=== PATIENT | male | born 1965 | race American Indian/Alaskan Native ===

== ENCOUNTER 2017-02-08 17:41 | Emergency (ER) | payer MEDICAID ==
[2017-02-08 17:41] VITALS: BMI 39.1
[2017-02-08 18:01] VITALS: BP 135/84; PULSE 90; RESP 18; TEMP 98.1; O2SAT 98
== END 2017-02-08 18:30 | disposition left against medical advice (07) ==
LOC: ED 17:41
DX: Z02.89 Encounter for other administrative examinations (principal); F41.9 Anxiety disorder, unspecified

== ENCOUNTER 2018-09-07 01:53 | Inpatient (IN) | payer MEDICAID ==
[2018-09-07] MEDS ORDERED: Vancomycin 1gm in NS 250ml 1 GM/250 ML BAG IVPB STA (02:26)
[2018-09-07] MEDS ORDERED: Piperacillin/Tazobact 3.375 gm 100 ML IVPB STA (02:26)
[2018-09-07] MEDS ORDERED: Sodium Chloride 0.9% 500 ML IV STA (02:27)
--- NOTE | 2018-09-07 02:28 | ED PDOC ---
Arrival/HPI - General Time Seen by Provider: 09/07/18 01:54 Historian: Patient - History of Present Illness Narrative History of Present Illness (Text): 09/07/18 02:24 53 year old male, whose past medical history includes Heroin abuse, hypertension, hyperlipidemia, diabetes, seizure disorder and Hepatitis C, presents to the emergency department complaining of chronic leg pain and pain to left upper arm, for over a month. Patient states he has an open wound on his leg, and it won't close. Patient also informs of pain to his upper left arm. Patient admits to heroin use, and has track sousa to his left arm. Patient denies any known trauma. Patient denies any fevers, chills, headache, dizziness, chest pain, shortness of breath, cough, abdominal pain, nausea, vomiting, diarrhea, back pain, neck pain, urinary/bowel changes, or any other complaint. Time/Duration: > month Symptom Onset: Sudden Symptom Course: Unchanged Activities at Onset: Light Past Medical History - Provider Review Nursing Documentation Reviewed: Yes - Infectious Disease Hx of Infectious Diseases: None - Cardiac Hx Cardiac Disorders: Yes Hx Hypertension: Yes - Pulmonary Hx Respiratory Disorders: No - Neurological Hx Neurological Disorder: Yes Hx Seizures: Yes (Tegretol 200 low dose) - Renal Hx Renal Disorder: Yes - Endocrine/Metabolic Hx Endocrine Disorders: Yes Hx Diabetes Mellitus Type 1: Yes - Hematological/Oncological Hx Hepatitis C: Yes - Musculoskeletal/Rheumatological Hx Back Pain: Yes Hx Degenerative Joint Disease: Yes - Genitourinary/Gynecological Hx Sexually Transmitted Diseases: No - Psychiatric Hx Bipolar Disorder: Yes Hx Depression: Yes Hx Substance Use: Yes - Surgical History Hx Orthopedic Surgery: Yes - Anesthesia Hx Anesthesia Reactions: No Family/Social History - Physician Review Nursing Documentation Reviewed: Yes Family/Social History: No Known Family HX Smoking Status: Heavy Smoker > 10 Cigarettes Daily Hx Alcohol Use: Yes Frequency of alcohol use: Daily Hx Substance Use: Yes Substance used: coccaine, heroin (last used 09/07/18) Allergies/Home Meds Allergies/Adverse Reactions: Allergies coconut Allergy (Verified 09/07/18 02:09) RASH tomato Allergy (Verified 09/07/18 02:09) SHORTNESS OF BREATH Home Medications: Home Meds Medication Instructions Recorded Confirmed Atorvastatin [Lipitor] 20 mg PO DAILY 09/13/15 05/11/16 Gabapentin 800 mg PO QID 12/05/15 05/11/16 Lisinopril 5 mg PO DAILY 12/05/15 05/11/16 Metformin HCl 500 mg PO BID 12/05/15 05/11/16 Metoprolol Tartrate 25 mg PO DAILY 12/05/15 05/11/16 Glipizide 0 mg PO DAILY 04/28/16 05/11/16 Promethazine DM [Phenergan DM 5 ml PO QID 05/11/16 05/16/16 Syrup] Ranitidine HCl [Sunmark Acid 150 mg PO BID 05/11/16 05/11/16 Live Study Manager] Review of Systems - Physician Review All systems were reviewed & negative as marked: Yes - Review of Systems Constitutional: absent: Fevers, Night Sweats Respiratory: absent: SOB, Cough Cardiovascular: absent: Chest Pain Genitourinary Male: absent: Urinary Output Changes Musculoskeletal: absent: Back Pain, Neck Pain Neurological: absent: Headache, Dizziness Physical Exam - Systems Exam Head: Present: Atraumatic, Normocephalic Pupils: Present: PERRL Extroacular Muscles: Present: EOMI Conjunctiva: Present: Normal Mouth: Present: Moist Mucous Membranes Neck: Present: Normal Range of Motion Respiratory/Chest: Present: Clear to Auscultation, Good Air Exchange. No: Respiratory Distress, Accessory Muscle Use Cardiovascular: Present: Regular Rate and Rhythm, Normal S1, S2. No: Murmurs Abdomen: No: Tenderness, Distention, Peritoneal Signs Back: Present: Normal Inspection Upper Extremity: Present: Swelling (Swelling to left upper shoulder). No: Cyanosis, Edema Lower Extremity: Present: Other (2 cm ulcer to lower left leg with purulent discharge). No: Normal Inspection, Edema Neurological: Present: Speech Normal Skin: Present: Warm, Dry, Normal Color. No: Rashes Psychiatric: Present: Alert, Oriented x 3, Normal Insight, Normal Concentration Medical Decision Making ED Course and Treatment: 09/07/18 02:32 Impression: 53 year old male presents with left leg and shoulder pain suspect abscess Plan: -- Labs -- Vancomycin -- Zosyn -- X-ray left shoulder -- Reassess and disposition Prior Visits: Notes and results from previous visits were reviewed. Progress Notes: 09/07/18 06:21 CT scan of the left upper extremity with contrast. Indication: Upper arm swelling. History of IV drug abuse. Technique: Axial CT scan images with intravenous contrast. Reformatted coronal and sagittal images. Findings: 3.5 x 2.6 cm intra subdeltoid abscess formation with a surrounding myositis. Overlying cellulitis. No CT evidence of osteomyelitis. Enlarged left axillary lymph nodes the largest measuring 1.3 cm. There are changes of degenerative joint disease. Impression: 3.5 x 2.6 cm intra subdeltoid abscess formation with a surrounding myositis. Overlying cellulitis. No CT evidence of osteomyelitis. case discussed with medical van driver, dr liz and medical surgical tech. accepted to medicine. 09/07/18 06:23 - Scribe Statement The provider has reviewed the documentation as recorded by the Argenis Anderson Provider Scribe Attestation: All medical record entries made by the Argenis were at my direction and personally dictated by me. I have reviewed the chart and agree that the record accurately reflects my personal performance of the history, physical exam, medical decision making, and the department course for this patient. I have also personally directed, reviewed, and agree with the discharge instructions and disposition. Disposition/Present on Arrival - Present on Arrival Any Indicators Present on Arrival: No History of DVT/PE: No History of Uncontrolled Diabetes: No Urinary Catheter: No History of Decub. Ulcer: No History Surgical Site Infection Following: None - Disposition Have Diagnosis and Disposition been Completed?: Yes Diagnosis: Abscess of deltoid region Disposition: HOSPITALIZED Disposition Time: 02:45 Patient Problems: Current Active Problems Problem Status Onset Abscess of deltoid region Acute Condition: STABLE
[2018-09-07 03:12] LABS: PARTIAL THROMBOPLASTIN TIME 29.2 Seconds (25.1-36.5); PROTHROMBIN TIME 11.4 SECONDS (9.4-12.5)
[2018-09-07 03:20] LABS: ALBUMIN 3.9 g/dL (3.0-4.8); ALT/SGPT 21 U/L (7-56); AST/SGOT 21 U/L (17-59); BLOOD UREA NITROGEN 15 mg/dL (7-21); CALCIUM 9.1 mg/dL (8.4-10.5); GFR NON-AFRICAN AMERICAN > 60
[2018-09-07 03:27] LABS: BASO # 0.02 K/mm3 (0.0-2.0); BASO % 0.2 % (0.0-3.0); EOS # 0.2 (0.0-0.7); EOS % 2.8 % (1.5-5.0); GRAN # 5.48 (1.4-6.5); HEMOGLOBIN 12.7 g/dL (14.0-18.0); LYMPH # 1.9 (1.2-3.4); LYMPH % 23.6 % (22.0-35.0); MEAN CELL VOLUME 85.8 fl (80.0-105.0); MEAN CORPUSCULAR HEMOGLOBIN 27.8 pg (25.0-35.0); MEAN CORPUSCULAR HGB CONC 32.4 g/dl (31.0-37.0); MEAN PLATELET VOLUME 10.7 fl (7.0-11.0); MONO # 0.5 (0.1-0.6); MONO % 6.4 % (1.0-6.0); RBC 4.57 10^6/uL (3.5-6.1); RED CELL DISTRIBUTION WIDTH 13.2 % (11.5-14.5); WHITE BLOOD COUNT 8.2 10^3/uL (4.5-11.0)
[2018-09-07] MEDS ORDERED: Iohexol 350 MG/100 ML VIAL ONE (03:33)
[2018-09-07] MEDS ORDERED: Vitamins A & D Oint UD Foilpak TOP PRN (07:31)
[2018-09-07] MEDS ORDERED: Dextrose 50% SYRINGE Inj (50 ml) IV PRN (07:32)
[2018-09-07] MEDS ORDERED: Sodium Chloride 0.9% 1,000 ML IV SCH (07:45)
[2018-09-07] MEDS: Vancomycin 1.5 GM in Sodium Chloride 0.9% 500 ML IVPB SCH ×2 (07:47→19:41)
[2018-09-07 07:51] LABS: URINE BILIRUBIN NEGATIVE (NEGATIVE); URINE BLOOD NEGATIVE (NEGATIVE); URINE GLUCOSE (UA) NEGATIVE (NEGATIVE); URINE LEUKOCYTE ESTERASE NEGATIVE Leu/uL (NEGATIVE); URINE PROTEIN NEGATIVE mg/dL (<30 mg/dL); URINE UROBILINOGEN 0.2 E.U./dL (<1 E.U./dL)
[2018-09-07 07:52] LABS: URINE APPEARANCE CLEAR (CLEAR); URINE COLOR YELLOW (YELLOW)
--- NOTE | 2018-09-07 08:08 | CP.PCM.CON ---
<Jenny Lopez - Last Filed: 09/07/18 17:19> History of Present Illness - History of Present Illness History of Present Illness: ID Consult Note - Dr. Wilson CC: Left Upper Arm pain and swelling x 2 weeks HPI: 53 M with a PMHx of HTN, Seizures on tegretol, DM1, Hep C, IVDU, and Bipolar Disorder presents to the [facility] ED with complaints of chronic leg pain and left upper extremity pain and swelling for 2 weeks. Patient has a nonhealing ulcer on his leg for over a month, left leg abscess was previously present and previously was healed. He admits IVDU and admits using needles on left arm. He rated his pain at a 8/10 at its worst with a 5/10 constant pain, achy in quality and exacerbated by movement. He is able to move his extremities and denied any paresthesias. Patient denies any known trauma. Patient denies any fevers, chills, headache, dizziness, chest pain, shortness of breath, cough, abdominal pain, nausea, vomiting, diarrhea, back pain, neck pain, urinary/bowel changes, or any other complaint. PMHx: HTN, Seizures on tegretol, DM1, Hep C, and Bipolar Disorder PSHx: Ortho Surgery SHx: + tobacco: 1/2 ppd, + Etoh - daily, Cocaine & Heroin Abuse last used today FamHx; Noncontributory Meds: MAR Reviewed Allergies: Coconut, tomato Review of Systems - EENT Ears: Ear Discharge Past Patient History - Infectious Disease Hx of Infectious Diseases: None - Past Social History Smoking Status: Heavy Smoker > 10 Cigarettes Daily - CARDIAC Hx Cardiac Disorders: Yes Hx Hypertension: Yes - PULMONARY Hx Respiratory Disorders: No - NEUROLOGICAL Hx Neurological Disorder: Yes Hx Seizures: Yes (Tegretol 200 low dose) - RENAL Hx Chronic Kidney Disease: Yes - ENDOCRINE/METABOLIC Hx Endocrine Disorders: Yes Hx Diabetes Mellitus Type 1: Yes - HEMATOLOGICAL/ONCOLOGICAL Hx Hepatitis C: Yes - MUSCULOSKELETAL/RHEUMATOLOGICAL Hx Back Pain: Yes Hx Degenerative Joint Disease: Yes - GENITOURINARY/GYNECOLOGICAL Hx Sexually Transmitted Disorders: No - PSYCHIATRIC Hx Bipolar Disorder: Yes Hx Depression: Yes Hx Substance Use: Yes - SURGICAL HISTORY Hx Orthopedic Surgery: Yes - ANESTHESIA Hx Anesthesia Reactions: No Meds Allergies/Adverse Reactions: Allergies Allergy/AdvReac Type Severity Reaction Status Date / Time coconut Allergy RASH Verified 09/07/18 02:09 tomato Allergy SHORTNESS Verified 09/07/18 02:09 OF BREATH Results - Vital Signs Recent Vital Signs: Last Vital Signs Temp 98.3 F 09/07/18 02:45 Pulse 85 09/07/18 06:00 Resp 18 09/07/18 06:00 BP 110/62 09/07/18 06:00 Pulse Ox 96 09/07/18 06:00 - Labs Result Diagrams: 09/07/18 02:45 09/07/18 02:45 Labs: Laboratory Results - last 24 hr 09/07/18 09/07/18 09/07/18 02:45 02:45 02:45 WBC 8.2 RBC 4.57 Hgb 12.7 L Hct 39.2 L MCV 85.8 MCH 27.8 MCHC 32.4 RDW 13.2 Plt Count 190 MPV 10.7 Gran % 67.0 Lymph % (Auto) 23.6 [place] % (Auto) 6.4 H Eos % (Auto) 2.8 Baso % (Auto) 0.2 Gran # 5.48 Lymph # (Auto) 1.9 [place] # (Auto) 0.5 Eos # (Auto) 0.2 Baso # (Auto) 0.02 PT 11.4 INR 1.00 APTT 29.2 Sodium 134 Potassium 3.8 Chloride 96 L Carbon Dioxide 32 Anion Gap 9 L BUN 15 Creatinine 0.8 Est GFR ( Amer) > 60 Est GFR (Non-Af Amer) > 60 POC Glucose (mg/dL) Random Glucose 362 H* D Calcium 9.1 Total Bilirubin 0.2 AST 21 ALT 21 Alkaline Phosphatase 115 Total Creatine Kinase 77 Total Protein 7.7 Albumin 3.9 Globulin 3.8 Albumin/Globulin Ratio 1.0 L 09/07/18 09/07/18 03:01 06:34 WBC RBC Hgb Hct MCV MCH MCHC RDW Plt Count MPV Gran % Lymph % (Auto) [place] % (Auto) Eos % (Auto) Baso % (Auto) Gran # Lymph # (Auto) [place] # (Auto) Eos # (Auto) Baso # (Auto) PT INR APTT Sodium Potassium Chloride Carbon Dioxide Anion Gap BUN Creatinine Est GFR ( Amer) Est GFR (Non-Af Amer) POC Glucose (mg/dL) 337 H 272 H Random Glucose Calcium Total Bilirubin AST ALT Alkaline Phosphatase Total Creatine Kinase Total Protein Albumin Globulin Albumin/Globulin Ratio Assessment & Plan - Assessment and Plan (Free Text) Assessment: 3 M with a PMHx of HTN, Seizures on tegretol, DM1, Hep C, IVDU, and Bipolar Disorder presents to the [facility] ED with complaints of chronic leg pain and left upper extremity pain and swelling for 2 weeks. Left deltoid Abscess 2/2 IVDU Cellulitis LLE Chronic Ulcer DM1 Seizure Disorder HepC Bipolar Disorder without SIRS and hemodynamically stable. CT reviewed, demonstrated 3.5x2.6cm intra subdeltoid abscess, s/p I&D and wound packing in the ED with betadine and NS flushes - drainage of approx 10cc of the purulent abscess by surgery team, fu wound cx follow up blood culture, wound culture, HIV, procalcitonin, CRP currently on zosyn and vanc, will dc zosyn now that abscess is drained Echo pending will continue to follow <Petros Wilson - Last Filed: 09/07/18 17:56> Meds - Medications Medications: Current Medications Acetaminophen (Tylenol 325mg Tab) 650 mg PO Q6H PRN PRN Reason: Fever >100.4 F Carbamazepine (Tegretol) 200 mg PO DAILY BRIANDA; Protocol Dextrose (Dextrose 50% Inj) 0 ml IV STAT PRN; Protocol PRN Reason: Hypoglycemia Protocol Enoxaparin Sodium (Lovenox) 40 mg SC DAILY BRIANDA; Protocol Dextrose (Dextrose 5% In Water 1000 Ml) 1,000 mls @ 0 mls/hr IV .Q0M PRN; Protocol PRN Reason: Hypoglycemia Protocol Vancomycin HCl 1.5 gm/ Sodium (Chloride) 500 mls @ 167 mls/hr IVPB Q12H BRIANDA; Protocol Last Admin: 09/07/18 07:47 Dose: Not Given Insulin Detemir (Levemir) 12 unit SC HS BRIANDA Insulin Human Regular (Humulin R Med) 0 units SC ACHS BRIANDA; Protocol Morphine Sulfate (Morphine) 2 mg IVP Q4H PRN PRN Reason: Pain, severe (8-10) Nicotine (Nicoderm Cq) 1 patch TD DAILY BRIANDA Last Admin: 09/07/18 12:01 Dose: 1 patch Ondansetron HCl (Zofran Inj) 4 mg IVP Q4H PRN PRN Reason: Nausea/Vomiting Last Admin: 09/07/18 09:15 Dose: 4 mg Pantoprazole Sodium (Protonix Ec Tab) 40 mg PO 0600 BRIANDA Vitamin A (Vitamin A & D Oint Ud Foilpak) 1 ea TOP Q2 PRN PRN Reason: Dry mouth Results - Vital Signs Recent Vital Signs: Last Vital Signs Temp 98.8 F 09/07/18 14:00 Pulse 86 09/07/18 14:00 Resp 18 09/07/18 10:30 BP 125/82 09/07/18 14:00 Pulse Ox 100 09/07/18 14:00 - Labs Result Diagrams: 09/07/18 02:45 09/07/18 02:45 Labs: Laboratory Results - last 24 hr 09/07/18 09/07/18 09/07/18 02:45 02:45 02:45 WBC 8.2 RBC 4.57 Hgb 12.7 L Hct 39.2 L MCV 85.8 MCH 27.8 MCHC 32.4 RDW 13.2 Plt Count 190 MPV 10.7 Gran % 67.0 Lymph % (Auto) 23.6 [place] % (Auto) 6.4 H Eos % (Auto) 2.8 Baso % (Auto) 0.2 Gran # 5.48 Lymph # (Auto) 1.9 [place] # (Auto) 0.5 Eos # (Auto) 0.2 Baso # (Auto) 0.02 ESR PT 11.4 INR 1.00 APTT 29.2 Sodium 134 Potassium 3.8 Chloride 96 L Carbon Dioxide 32 Anion Gap 9 L BUN 15 Creatinine 0.8 Est GFR ( Amer) > 60 Est GFR (Non-Af Amer) > 60 POC Glucose (mg/dL) Random Glucose 362 H* D Hemoglobin A1c Calcium 9.1 Total Bilirubin 0.2 AST 21 ALT 21 Alkaline Phosphatase 115 Total Creatine Kinase 77 C-React Prot High Sens Total Protein 7.7 Albumin 3.9 Globulin 3.8 Albumin/Globulin Ratio 1.0 L Procalcitonin Urine Color Urine Appearance Urine pH Ur Specific [place] Urine Protein Urine Glucose (UA) Urine Ketones Urine Blood Urine Nitrate Urine Bilirubin Urine Urobilinogen Ur Leukocyte Esterase Urine Opiates Screen Urine Methadone Screen Ur Barbiturates Screen Carbamazepine Ur Phencyclidine Scrn Ur Amphetamines Screen U Benzodiazepines Scrn U Oth Cocaine Metabols U Cannabinoids Screen Alcohol, Quantitative Hepatitis A IgM Ab Hep Bs Antigen Hep B Core IgM Ab Hepatitis C Antibody 09/07/18 09/07/18 09/07/18 02:45 02:45 02:45 WBC RBC Hgb Hct MCV MCH MCHC RDW Plt Count MPV Gran % Lymph % (Auto) [place] % (Auto) Eos % (Auto) Baso % (Auto) Gran # Lymph # (Auto) [place] # (Auto) Eos # (Auto) Baso # (Auto) ESR PT INR APTT Sodium Potassium Chloride Carbon Dioxide Anion Gap BUN Creatinine Est GFR ( Amer) Est GFR (Non-Af Amer) POC Glucose (mg/dL) Random Glucose Hemoglobin A1c 14.4 H Calcium Total Bilirubin AST ALT Alkaline Phosphatase Total Creatine Kinase C-React Prot High Sens > 15.00 H Total Protein Albumin Globulin Albumin/Globulin Ratio Procalcitonin 1.26 H Urine Color Urine Appearance Urine pH Ur Specific [place] Urine Protein Urine Glucose (UA) Urine Ketones Urine Blood Urine Nitrate Urine Bilirubin Urine Urobilinogen Ur Leukocyte Esterase Urine Opiates Screen Urine Methadone Screen Ur Barbiturates Screen Carbamazepine Ur Phencyclidine Scrn Ur Amphetamines Screen U Benzodiazepines Scrn U Oth Cocaine Metabols U Cannabinoids Screen Alcohol, Quantitative < 10 Hepatitis A IgM Ab Hep Bs Antigen Hep B Core IgM Ab Hepatitis C Antibody 09/07/18 09/07/18 09/07/18 03:01 06:34 07:26 WBC RBC Hgb Hct MCV MCH MCHC RDW Plt Count MPV Gran % Lymph % (Auto) [place] % (Auto) Eos % (Auto) Baso % (Auto) Gran # Lymph # (Auto) [place] # (Auto) Eos # (Auto) Baso # (Auto) ESR PT INR APTT Sodium Potassium Chloride Carbon Dioxide Anion Gap BUN Creatinine Est GFR ( Amer) Est GFR (Non-Af Amer) POC Glucose (mg/dL) 337 H 272 H Random Glucose Hemoglobin A1c Calcium Total Bilirubin AST ALT Alkaline Phosphatase Total Creatine Kinase C-React Prot High Sens Total Protein Albumin Globulin Albumin/Globulin Ratio Procalcitonin Urine Color Urine Appearance Urine pH Ur Specific [place] Urine Protein Urine Glucose (UA) Urine Ketones Urine Blood Urine Nitrate Urine Bilirubin Urine Urobilinogen Ur Leukocyte Esterase Urine Opiates Screen Negative Urine Methadone Screen Negative Ur Barbiturates Screen Negative Carbamazepine Ur Phencyclidine Scrn Negative Ur Amphetamines Screen Negative U Benzodiazepines Scrn Negative U Oth Cocaine Metabols Negative U Cannabinoids Screen Negative Alcohol, Quantitative Hepatitis A IgM Ab Hep Bs Antigen Hep B Core IgM Ab Hepatitis C Antibody 09/07/18 09/07/18 09/07/18 07:40 07:40 08:00 WBC RBC Hgb Hct MCV MCH MCHC RDW Plt Count MPV Gran % Lymph % (Auto) [place] % (Auto) Eos % (Auto) Baso % (Auto) Gran # Lymph # (Auto) [place] # (Auto) Eos # (Auto) Baso # (Auto) ESR 31 H PT INR APTT Sodium Potassium Chloride Carbon Dioxide Anion Gap BUN Creatinine Est GFR ( Amer) Est GFR (Non-Af Amer) POC Glucose (mg/dL) Random Glucose Hemoglobin A1c Calcium Total Bilirubin AST ALT Alkaline Phosphatase Total Creatine Kinase C-React Prot High Sens Total Protein Albumin Globulin Albumin/Globulin Ratio Procalcitonin Urine Color Yellow Urine Appearance Clear Urine pH 7.0 Ur Specific [place] 1.015 Urine Protein Negative Urine Glucose (UA) Negative Urine Ketones Negative Urine Blood Negative Urine Nitrate Negative Urine Bilirubin Negative Urine Urobilinogen 0.2 Ur Leukocyte Esterase Negative Urine Opiates Screen Urine Methadone Screen Ur Barbiturates Screen Carbamazepine Ur Phencyclidine Scrn Ur Amphetamines Screen U Benzodiazepines Scrn U Oth Cocaine Metabols U Cannabinoids Screen Alcohol, Quantitative Hepatitis A IgM Ab Negative Hep Bs Antigen Negative Hep B Core IgM Ab Negative Hepatitis C Antibody Reactive 09/07/18 09/07/18 09/07/18 08:31 11:06 16:21 WBC RBC Hgb Hct MCV MCH MCHC RDW Plt Count MPV Gran % Lymph % (Auto) [place] % (Auto) Eos % (Auto) Baso % (Auto) Gran # Lymph # (Auto) [place] # (Auto) Eos # (Auto) Baso # (Auto) ESR PT INR APTT Sodium Potassium Chloride Carbon Dioxide Anion Gap BUN Creatinine Est GFR ( Amer) Est GFR (Non-Af Amer) POC Glucose (mg/dL) 265 H 307 H Random Glucose Hemoglobin A1c Calcium Total Bilirubin AST ALT Alkaline Phosphatase Total Creatine Kinase C-React Prot High Sens Total Protein Albumin Globulin Albumin/Globulin Ratio Procalcitonin Urine Color Urine Appearance Urine pH Ur Specific [place] Urine Protein Urine Glucose (UA) Urine Ketones Urine Blood Urine Nitrate Urine Bilirubin Urine Urobilinogen Ur Leukocyte Esterase Urine Opiates Screen Urine Methadone Screen Ur Barbiturates Screen Carbamazepine < 3 L Ur Phencyclidine Scrn Ur Amphetamines Screen U Benzodiazepines Scrn U Oth Cocaine Metabols U Cannabinoids Screen Alcohol, Quantitative Hepatitis A IgM Ab Hep Bs Antigen Hep B Core IgM Ab Hepatitis C Antibody Assessment & Plan - Assessment and Plan (Free Text) Assessment: Infectious diseases Attending Physician Attestation Patient seen and examined, discussed with biomedical specialist. I have reviewed the patient's history of present illness, past medical, social, personal and family histories, pertinent physical exam findings, course so far in this hospital admission, pertinent laboratory and imaging results. I agree with the above findings, assessment and plan. In addition, will continue Vancomycin for this patient with left deltoid abscess associated with IVDU, S/P drainage at bedside. Follow up blood and wound cx. Will check HIV status of the patient.
[2018-09-07] MEDS ORDERED: Lidocaine 1% 5ml Abboject ONE (08:31)
--- NOTE | 2018-09-07 08:42 | CP.PCM.CON ---
History of Present Illness - History of Present Illness History of Present Illness: General Surgery Consult Note for Dr. Fitch HPI: 53 y/o male with PMHx DM, IVDA, HTN, HLD, sz, untreated hep c, and bipolar disorder presented to the ER with an unhealed left leg abscess x 1 month and left deltoid abscess x 2 weeks. Surgery consulted for treatment of the deltoid abscess. Patient history limited due to lethargic condition and therefore inability to answer questions. Per ED physician, patient was more awake upon arrival to the ED earlier this morning. Per patient, left leg abscess was pre viously present and previously healed with abx. The left arm abscess was for 2 weeks. Per earlier notes, patient uses IV drugs and admits to heroin injection done last 24 hours. ROS: unable to be obtained a full ROS due to patient condition PMD: none PMHx: stated above - patient admits to DM, HTN and untreated Hep C, but earlier notes indicate IVDA, HLD, SZ, and bipolar PSHx: left lower leg ortho surgery SocHx: 1/2 ppd tobacco since 8 y/o, denies EtOH (however earlier notes state EtOH), heroin and cocaine use. FM: unable to obtain due to patient condition Meds: Patient states he ran out of his medications and took metformin previously. Currently not on medications All: coconut and tomato Review of Systems - Review of Systems Systems not reviewed;Unavailable: Altered Mental Status Past Patient History - Infectious Disease Hx of Infectious Diseases: None - Past Social History Smoking Status: Heavy Smoker > 10 Cigarettes Daily - CARDIAC Hx Cardiac Disorders: Yes Hx Hypertension: Yes - PULMONARY Hx Respiratory Disorders: No - NEUROLOGICAL Hx Neurological Disorder: Yes Hx Seizures: Yes (Tegretol 200 low dose) - RENAL Hx Chronic Kidney Disease: Yes - ENDOCRINE/METABOLIC Hx Endocrine Disorders: Yes Hx Diabetes Mellitus Type 1: Yes - HEMATOLOGICAL/ONCOLOGICAL Hx Hepatitis C: Yes - MUSCULOSKELETAL/RHEUMATOLOGICAL Hx Back Pain: Yes Hx Degenerative Joint Disease: Yes - GENITOURINARY/GYNECOLOGICAL Hx Sexually Transmitted Disorders: No - PSYCHIATRIC Hx Bipolar Disorder: Yes Hx Depression: Yes Hx Substance Use: Yes - SURGICAL HISTORY Hx Orthopedic Surgery: Yes - ANESTHESIA Hx Anesthesia Reactions: No Meds Allergies/Adverse Reactions: Allergies Allergy/AdvReac Type Severity Reaction Status Date / Time coconut Allergy RASH Verified 09/07/18 02:09 tomato Allergy SHORTNESS Verified 09/07/18 02:09 OF BREATH - Medications Medications: Current Medications Acetaminophen (Tylenol 325mg Tab) 650 mg PO Q6H PRN PRN Reason: Fever >100.4 F Dextrose (Dextrose 50% Inj) 0 ml IV STAT PRN; Protocol PRN Reason: Hypoglycemia Protocol Dextrose (Dextrose 5% In Water 1000 Ml) 1,000 mls @ 0 mls/hr IV .Q0M PRN; Protocol PRN Reason: Hypoglycemia Protocol Sodium Chloride (Sodium Chloride 0.9%) 1,000 mls @ 100 mls/hr IV .Q10H BRIANDA Last Admin: 09/07/18 07:48 Dose: 100 mls/hr Vancomycin HCl 1.5 gm/ Sodium (Chloride) 500 mls @ 167 mls/hr IVPB Q12H BRIANDA; Protocol Last Admin: 09/07/18 07:47 Dose: Not Given Piperacillin Sod/Tazobactam Sod (Zosyn 3.375 In Ns 100ml) 100 mls @ 200 mls/hr IVPB Q6 BRIANDA; Protocol Insulin Human Regular (Humulin R Med) 0 units SC Q6 BRIANDA; Protocol Nicotine (Nicoderm Cq) 1 patch TD DAILY BRIANDA Ondansetron HCl (Zofran Inj) 4 mg IVP Q4H PRN PRN Reason: Nausea/Vomiting Pantoprazole Sodium (Protonix Ec Tab) 40 mg PO 0600 [facility] Vitamin A (Vitamin A & D Oint Ud Foilpak) 1 ea TOP Q2 PRN PRN Reason: Dry mouth Physical Exam - Constitutional Appears: Other Additional comments: Lethargic black male, able to be aroused with chest rub. "Leave me alone." - Head Exam Head Exam: ATRAUMATIC, NORMAL INSPECTION, NORMOCEPHALIC - ENT Exam ENT Exam: Mucous Membranes Moist - Neck Exam Neck exam: Positive for: Normal Inspection - Respiratory Exam Respiratory Exam: Clear to Auscultation Bilateral, NORMAL BREATHING PATTERN - Cardiovascular Exam Cardiovascular Exam: REGULAR RHYTHM - GI/Abdominal Exam GI & Abdominal Exam: Normal Bowel Sounds, Soft - Extremities Exam Additional comments: No peripheral edema, peripheral pulses strong. - Neurological Exam Additional comments: negative babinski reflex - Psychiatric Exam Additional comments: lethargic - Skin Additional comments: Left deltoid: 3x2 cm erythematous abscess, tender to palpation Left anterior tibialis: 2 cm ulcer w/ purulent discharge, well defined borders Results - Vital Signs Recent Vital Signs: Last Vital Signs Temp 98.3 F 09/07/18 08:03 Pulse 89 09/07/18 08:03 Resp 18 09/07/18 08:03 BP 106/67 09/07/18 08:03 Pulse Ox 99 09/07/18 08:03 - Labs Result Diagrams: 09/07/18 02:45 09/07/18 02:45 Labs: Laboratory Results - last 24 hr 09/07/18 09/07/18 09/07/18 02:45 02:45 02:45 WBC 8.2 RBC 4.57 Hgb 12.7 L Hct 39.2 L MCV 85.8 MCH 27.8 MCHC 32.4 RDW 13.2 Plt Count 190 MPV 10.7 Gran % 67.0 Lymph % (Auto) 23.6 Glades % (Auto) 6.4 H Eos % (Auto) 2.8 Baso % (Auto) 0.2 Gran # 5.48 Lymph # (Auto) 1.9 Glades # (Auto) 0.5 Eos # (Auto) 0.2 Baso # (Auto) 0.02 PT 11.4 INR 1.00 APTT 29.2 Sodium 134 Potassium 3.8 Chloride 96 L Carbon Dioxide 32 Anion Gap 9 L BUN 15 Creatinine 0.8 Est GFR ( Amer) > 60 Est GFR (Non-Af Amer) > 60 POC Glucose (mg/dL) Random Glucose 362 H* D Calcium 9.1 Total Bilirubin 0.2 AST 21 ALT 21 Alkaline Phosphatase 115 Total Creatine Kinase 77 Total Protein 7.7 Albumin 3.9 Globulin 3.8 Albumin/Globulin Ratio 1.0 L Urine Color Urine Appearance Urine pH Ur Specific Acra Urine Protein Urine Glucose (UA) Urine Ketones Urine Blood Urine Nitrate Urine Bilirubin Urine Urobilinogen Ur Leukocyte Esterase Alcohol, Quantitative 09/07/18 09/07/18 09/07/18 02:45 03:01 06:34 WBC RBC Hgb Hct MCV MCH MCHC RDW Plt Count MPV Gran % Lymph % (Auto) Glades % (Auto) Eos % (Auto) Baso % (Auto) Gran # Lymph # (Auto) Glades # (Auto) Eos # (Auto) Baso # (Auto) PT INR APTT Sodium Potassium Chloride Carbon Dioxide Anion Gap BUN Creatinine Est GFR ( Amer) Est GFR (Non-Af Amer) POC Glucose (mg/dL) 337 H 272 H Random Glucose Calcium Total Bilirubin AST ALT Alkaline Phosphatase Total Creatine Kinase Total Protein Albumin Globulin Albumin/Globulin Ratio Urine Color Urine Appearance Urine pH Ur Specific Acra Urine Protein Urine Glucose (UA) Urine Ketones Urine Blood Urine Nitrate Urine Bilirubin Urine Urobilinogen Ur Leukocyte Esterase Alcohol, Quantitative < 10 09/07/18 07:40 WBC RBC Hgb Hct MCV MCH MCHC RDW Plt Count MPV Gran % Lymph % (Auto) Glades % (Auto) Eos % (Auto) Baso % (Auto) Gran # Lymph # (Auto) Glades # (Auto) Eos # (Auto) Baso # (Auto) PT INR APTT Sodium Potassium Chloride Carbon Dioxide Anion Gap BUN Creatinine Est GFR ( Amer) Est GFR (Non-Af Amer) POC Glucose (mg/dL) Random Glucose Calcium Total Bilirubin AST ALT Alkaline Phosphatase Total Creatine Kinase Total Protein Albumin Globulin Albumin/Globulin Ratio Urine Color Yellow Urine Appearance Clear Urine pH 7.0 Ur Specific Acra 1.015 Urine Protein Negative Urine Glucose (UA) Negative Urine Ketones Negative Urine Blood Negative Urine Nitrate Negative Urine Bilirubin Negative Urine Urobilinogen 0.2 Ur Leukocyte Esterase Negative Alcohol, Quantitative Assessment & Plan - Assessment and Plan (Free Text) Assessment: 53 y/o male with multiple medical problems including PMHx of DM, HTN, untreated hep C presented to the ED with a left deltoid abscess x 2 weeks and left leg ulcer x 1 mo. left deltoid abscess -Patient currently without sepsis and hemodynamically stable. CT negative for cellulitis and x-ray left shoulder pending radiology read -s/p I&D and wound packing in the ED with betadine and NS flushes - drainage of approx 10cc of the purulent abscess -pending labs: blood culture, wound culture, HIV, procalcitonin, CRP -currently on zosyn and vanc -ID consulted, appreciate recs -will continue to follow for wound care left leg ulcer -recommend local wound care Katie Brewer DO PGY1
--- NOTE | 2018-09-07 08:50 | CT ---
Date of service: 09/07/2018 PROCEDURE: HISTORY: upper arm swelling h/o of ivda COMPARISON: TECHNIQUE: FINDINGS: 3.5 x 2.6 centimeter lateral deltoid abscess formation with surrounding myositis and overlying cellulitis. No evidence of osteomyelitis. Enlarged left axillary lymph nodes measuring 1.3 centimeters. Degenerative changes. IMPRESSION: Lateral deltoid abscess.
[2018-09-07] MEDS ORDERED: Morphine 2 mg/ml ISec IVP PRN (09:01)
--- NOTE | 2018-09-07 09:15 | PCM.PROC ---
- Incision & Drainage Of Abscess Anesthesia: Lidocaine 1%, With Epi Used During Procedure: Continuous Pulse Oximetry Prep Used: Betadine Procedure: Incised W/Scalpel Blade#: (11), Drained Pus (20), Irrigated Cavity W/Saline, Probed To Break Up Loculations, Packed W/Gauze, Cultures Obtained And Sent To Lab Incision and Drainage - Time Time Performed: 08:45 - Time Out Time Out: Side verified, Site verified, Patient ID confirmed, Sterile procedures obs. - Procedure Procedure-Incision & Drainage: of Left Deltoid - Consent obtained Consent obtained: Written - Indications Indications: Cutaneous abscess - Contraindications Contraindications: None - Location Location: Left, Shoulder abs.deep (intra) - Dimensions Dimensions Length cm: 7 Dimensions width cm: 8 - Anesthetic Technique Anesthetic Technique: Local - Anesthetic Anesthetic: Lidocaine 1% - Procedure Procedure: Usual prep and drape, cm incision, Overlying area fluctuance, # scalpel used (11), Explored for loculations, Irrigated, Packed with sterile gauze - Drained Drained: ml pus (25) - Post-procedure Post procedure: Neurovascular status norm - Complications Complications: None - Patient tolerated procedure Patient tolerated procedure: Well
--- NOTE | 2018-09-07 09:24 | RAD ---
Date of service: 09/07/2018 PROCEDURE: Radiographs of the Left Shoulder HISTORY: pain COMPARISON: No prior. FINDINGS: BONES: Cystic degenerative changes are seen in the bony glenoid. JOINTS: As above SOFT TISSUES: Normal. OTHER FINDINGS: None. IMPRESSION: Cystic degenerative changes are seen in the bony glenoid.
[2018-09-07] MEDS ORDERED: Insulin Reg-MEDIUM-Coverage SC SCH (12:00)
[2018-09-07 12:37] LABS: HEPATITIS A IGM NEGATIVE (NEGATIVE); HEPATITIS B CORE AB NEGATIVE (NEGATIVE); HEPATITIS B SURFACE AG Negative (NEGATIVE)
--- NOTE | 2018-09-07 13:37 | US ---
HISTORY: Leg pain and swelling. Evaluate for DVT PHYSICIAN(S): Hill Gardner MD. TECHNIQUE: Duplex sonography and color-flow Doppler with graded compression were used to evaluate the deep venous systems of both lower extremities. FINDINGS: The visualized deep venous systems of both lower extremities are sonographically normal and compressible. Normal wave forms and augmentation are seen. There is no sonographic evidence for deep venous thrombosis in the visualized segments of both lower extremities. IMPRESSION: No sonographic evidence for deep venous thrombosis in the visualized segments of both lower extremities.
[2018-09-07 13:55] LABS: HEPATITIS C ANTIBODY REACTIVE (NEGATIVE)
[2018-09-07] MEDS ORDERED: Piperacillin/Tazobact 3.375 gm 100 ML IVPB SCH (14:00)
--- NOTE | 2018-09-07 14:03 | CP.PCM.HP ---
<Adin Fitch - Last Filed: 09/07/18 14:09> History of Present Illness - History of Present Illness History of Present Illness: Internal Medicine History and Physical CC: B/L Lower Extremity Pain/LUE Pain HPI: Mr. Arizmendi is a 53 year old male with a past medical history significant for HTN, unspecified DM, untreated Hepatitis C, Tobacco Use Disorder, Polysubstance Abuse (Heroin and Cocaine) and unspecified Seizure Disorder who presents with two weeks of acutely worsening chronic RUE pain as well as acutely worsening chronic bilateral lower extremity pain. Patient is noted to be drowsy but is able to answer questions and oriented person, place, time and event. Patient reports that approximately two weeks ago, his right shoulder and bilateral legs both started to become progressively more painful without any inciting event noted. He reports that these issues are both chronic but that they have worsened in intensity. He describes the pain as a constant sharp stabbing pain without radiation and is a 10/10 on pain scale. He reports that he has a non-healing sore on his left leg that has also been present for approximately one month as well. He has reportedly not received treatment for this. Of note, patient stated that he injected three bags of heroin at approximately 1830 last night. He currently denies any other complaints including fevers, chills, headache, chest pain, SOB, abdominal pain, N/V/D/C, or any changes in urine output. PMH: As stated above PSH: Orthopedic Surgery to RLE Family History: Social History: Smokes 1/2ppd with 25 year pack smoking history; Previous history of alcohol abuse; Current intermittent use of Heroin and Cocaine Allergies: Coconut and Tomato Home Medications: Metformin 1000mg BID, Lantus 12u HS, Lipitor 20mg, Zantac 150mg, Gabapentin 800mg, Metoprolol Tartrate 25mg BID, Tegretol 200mg daily, Seroquel 25mg HS PMD: Dr. Hargrove Scribing Machine Operator: Dr. Dejesus Neurologist: Dr. Krishnamurthy Present on Admission - Present on Admission Any Indicators Present on Admission: No Review of Systems - Review of Systems Review of Systems: As stated in HPI, otherwise negative Past Patient History - Infectious Disease Hx of Infectious Diseases: None - Past Social History Smoking Status: Heavy Smoker > 10 Cigarettes Daily - CARDIAC Hx Cardiac Disorders: Yes Hx Hypertension: Yes - PULMONARY Hx Respiratory Disorders: No - NEUROLOGICAL Hx Neurological Disorder: Yes Hx Seizures: Yes (Tegretol 200 low dose) - RENAL Hx Chronic Kidney Disease: Yes - ENDOCRINE/METABOLIC Hx Endocrine Disorders: Yes Hx Diabetes Mellitus Type 1: Yes - HEMATOLOGICAL/ONCOLOGICAL Hx Hepatitis C: Yes - MUSCULOSKELETAL/RHEUMATOLOGICAL Hx Back Pain: Yes Hx Degenerative Joint Disease: Yes - GENITOURINARY/GYNECOLOGICAL Hx Sexually Transmitted Disorders: No - PSYCHIATRIC Hx Bipolar Disorder: Yes Hx Depression: Yes Hx Substance Use: Yes - SURGICAL HISTORY Hx Orthopedic Surgery: Yes - ANESTHESIA Hx Anesthesia Reactions: No Meds Allergies/Adverse Reactions: Allergies Allergy/AdvReac Type Severity Reaction Status Date / Time coconut Allergy RASH Verified 09/07/18 02:09 tomato Allergy SHORTNESS Verified 09/07/18 02:09 OF BREATH Physical Exam - Constitutional Appears: Non-toxic, No Acute Distress, Unkempt - Head Exam Head Exam: ATRAUMATIC, NORMOCEPHALIC - Eye Exam Eye Exam: EOMI, Normal appearance Pupil Exam: PERRL - ENT Exam ENT Exam: Mucous Membranes Dry, Normal External Ear Exam, Normal Oropharynx - Neck Exam Neck exam: Positive for: Full Rom, Normal Inspection. Negative for: Lymphadenopathy, Meningismus, Tenderness, Thyromegaly - Respiratory Exam Respiratory Exam: Clear to Auscultation Bilateral, NORMAL BREATHING PATTERN. absent: Accessory Muscle Use, Rales, Rhonchi, Wheezes, Respiratory Distress - Cardiovascular Exam Cardiovascular Exam: REGULAR RHYTHM, RRR, +S1, +S2 - GI/Abdominal Exam GI & Abdominal Exam: Normal Bowel Sounds, Soft, Tenderness (Mild TTP in epigastric region) - Extremities Exam Extremities exam: Positive for: calf tenderness (Bilaterally). Negative for: no rmal inspection Additional comments: [id number] circular abrasion to left anterior superior medial calf with scabbing and islands of granulation tissue reported to be chronic and non healing; No streaking of erythema, fluctuation or induration [id number] area of erythema, warmth and induration with significant TTP to anterior left deltoid - Neurological Exam Neurological exam: Alert, Oriented x3 - Skin Skin Exam: Dry, Warm Results - Vital Signs Recent Vital Signs: Last Vital Signs Temp 98.2 F 09/07/18 10:30 Pulse 93 H 09/07/18 10:30 Resp 18 09/07/18 10:30 BP 130/80 09/07/18 10:30 Pulse Ox 97 09/07/18 10:30 - Labs Result Diagrams: 09/07/18 02:45 09/07/18 02:45 Labs: Laboratory Results - last 24 hr 09/07/18 09/07/18 09/07/18 02:45 02:45 02:45 WBC 8.2 RBC 4.57 Hgb 12.7 L Hct 39.2 L MCV 85.8 MCH 27.8 MCHC 32.4 RDW 13.2 Plt Count 190 MPV 10.7 Gran % 67.0 Lymph % (Auto) 23.6 Faulk % (Auto) 6.4 H Eos % (Auto) 2.8 Baso % (Auto) 0.2 Gran # 5.48 Lymph # (Auto) 1.9 Faulk # (Auto) 0.5 Eos # (Auto) 0.2 Baso # (Auto) 0.02 ESR PT 11.4 INR 1.00 APTT 29.2 Sodium 134 Potassium 3.8 Chloride 96 L Carbon Dioxide 32 Anion Gap 9 L BUN 15 Creatinine 0.8 Est GFR ( Amer) > 60 Est GFR (Non-Af Amer) > 60 POC Glucose (mg/dL) Random Glucose 362 H* D Hemoglobin A1c Calcium 9.1 Total Bilirubin 0.2 AST 21 ALT 21 Alkaline Phosphatase 115 Total Creatine Kinase 77 C-React Prot High Sens Total Protein 7.7 Albumin 3.9 Globulin 3.8 Albumin/Globulin Ratio 1.0 L Urine Color Urine Appearance Urine pH Ur Specific [place] Urine Protein Urine Glucose (UA) Urine Ketones Urine Blood Urine Nitrate Urine Bilirubin Urine Urobilinogen Ur Leukocyte Esterase Carbamazepine Alcohol, Quantitative Hepatitis A IgM Ab Hep Bs Antigen Hep B Core IgM Ab Hepatitis C Antibody 09/07/18 09/07/18 09/07/18 02:45 02:45 03:01 WBC RBC Hgb Hct MCV MCH MCHC RDW Plt Count MPV Gran % Lymph % (Auto) Faulk % (Auto) Eos % (Auto) Baso % (Auto) Gran # Lymph # (Auto) Faulk # (Auto) Eos # (Auto) Baso # (Auto) ESR PT INR APTT Sodium Potassium Chloride Carbon Dioxide Anion Gap BUN Creatinine Est GFR ( Amer) Est GFR (Non-Af Amer) POC Glucose (mg/dL) 337 H Random Glucose Hemoglobin A1c 14.4 H Calcium Total Bilirubin AST ALT Alkaline Phosphatase Total Creatine Kinase C-React Prot High Sens > 15.00 H Total Protein Albumin Globulin Albumin/Globulin Ratio Urine Color Urine Appearance Urine pH Ur Specific [place] Urine Protein Urine Glucose (UA) Urine Ketones Urine Blood Urine Nitrate Urine Bilirubin Urine Urobilinogen Ur Leukocyte Esterase Carbamazepine Alcohol, Quantitative < 10 Hepatitis A IgM Ab Hep Bs Antigen Hep B Core IgM Ab Hepatitis C Antibody 09/07/18 09/07/18 09/07/18 06:34 07:40 07:40 WBC RBC Hgb Hct MCV MCH MCHC RDW Plt Count MPV Gran % Lymph % (Auto) Faulk % (Auto) Eos % (Auto) Baso % (Auto) Gran # Lymph # (Auto) Faulk # (Auto) Eos # (Auto) Baso # (Auto) ESR 31 H PT INR APTT Sodium Potassium Chloride Carbon Dioxide Anion Gap BUN Creatinine Est GFR ( Amer) Est GFR (Non-Af Amer) POC Glucose (mg/dL) 272 H Random Glucose Hemoglobin A1c Calcium Total Bilirubin AST ALT Alkaline Phosphatase Total Creatine Kinase C-React Prot High Sens Total Protein Albumin Globulin Albumin/Globulin Ratio Urine Color Yellow Urine Appearance Clear Urine pH 7.0 Ur Specific [place] 1.015 Urine Protein Negative Urine Glucose (UA) Negative Urine Ketones Negative Urine Blood Negative Urine Nitrate Negative Urine Bilirubin Negative Urine Urobilinogen 0.2 Ur Leukocyte Esterase Negative Carbamazepine Alcohol, Quantitative Hepatitis A IgM Ab Hep Bs Antigen Hep B Core IgM Ab Hepatitis C Antibody 09/07/18 09/07/18 09/07/18 08:00 08:31 11:06 WBC RBC Hgb Hct MCV MCH MCHC RDW Plt Count MPV Gran % Lymph % (Auto) Faulk % (Auto) Eos % (Auto) Baso % (Auto) Gran # Lymph # (Auto) Faulk # (Auto) Eos # (Auto) Baso # (Auto) ESR PT INR APTT Sodium Potassium Chloride Carbon Dioxide Anion Gap BUN Creatinine Est GFR ( Amer) Est GFR (Non-Af Amer) POC Glucose (mg/dL) 265 H Random Glucose Hemoglobin A1c Calcium Total Bilirubin AST ALT Alkaline Phosphatase Total Creatine Kinase C-React Prot High Sens Total Protein Albumin Globulin Albumin/Globulin Ratio Urine Color Urine Appearance Urine pH Ur Specific [place] Urine Protein Urine Glucose (UA) Urine Ketones Urine Blood Urine Nitrate Urine Bilirubin Urine Urobilinogen Ur Leukocyte Esterase Carbamazepine < 3 L Alcohol, Quantitative Hepatitis A IgM Ab Negative Hep Bs Antigen Negative Hep B Core IgM Ab Negative Hepatitis C Antibody Reactive Assessment & Plan - Assessment and Plan (Free Text) Assessment: 53 year old male with a past medical history significant for HTN, unspecified DM, untreated Hepatitis C, Tobacco Use Disorder, Polysubstance Abuse (Heroin and Cocaine) and unspecified Seizure Disorder who presents with two weeks of acutely worsening chronic RUE pain as well as acutely worsening chronic bilateral lower extremity pain. Plan: 1. Left Subdeltoid Abscess with Overlying Cellulitis -Likely secondary to IVDA -CT Upper Extremity showed 3.5x2.6cm intra subdeltoid abscess -Bedside I&D performed in ED by surgery team 09/07 -Echocardiogram pending -Wound and Blood cultures pending -Empiric IV Vancomycin (Day 1) -Morphine 2mg IVP Q4 PRN for pain control -Tylenol PRN for fever -Surgery and ID consulted, all recommendations appreciated 2. Bilateral Lower Extremity Pain with LLE Chronic Wound -Bilateral Venous Doppler US negative for DVT's -Morphine as above for pain control -Wound Care referral -Empiric antibiotics as above 3. Unspecified Seizure Disorder -Carbamazepine level: <3 (Low) -Restarted home Tegretol 200mg daily -Seizure precautions 4. Unspecified DM -SSI-Medium and Accuchecks ACHS -Levemir 12u HS -A1c pending -Carbohydrate Consistent Diet 5. Tobacco Use Disorder -Nicoderm CQ transdermal patch daily 6. Polysubstance Abuse -UDS pending -Alcohol level: <10 -Counseled on cessation provided and will be reinforced daily GI Prophylaxis: Protonix DVT Prophylaxis: Lovenox Code Status: Full Code Patient seen and case discussed with attending, Dr. Lawson. Adin Fitch PGY2 - Date & Time Date: 09/07/18 Time: 07:00 <Néstor Lawson - Last Filed: 09/07/18 18:23> Results - Vital Signs Recent Vital Signs: Last Vital Signs Temp 98.8 F 09/07/18 14:00 Pulse 86 09/07/18 14:00 Resp 18 09/07/18 10:30 BP 125/82 09/07/18 14:00 Pulse Ox 100 09/07/18 14:00 - Labs Result Diagrams: 09/07/18 02:45 09/07/18 02:45 Labs: Laboratory Results - last 24 hr 09/07/18 09/07/18 09/07/18 02:45 02:45 02:45 WBC 8.2 RBC 4.57 Hgb 12.7 L Hct 39.2 L MCV 85.8 MCH 27.8 MCHC 32.4 RDW 13.2 Plt Count 190 MPV 10.7 Gran % 67.0 Lymph % (Auto) 23.6 Faulk % (Auto) 6.4 H Eos % (Auto) 2.8 Baso % (Auto) 0.2 Gran # 5.48 Lymph # (Auto) 1.9 Faulk # (Auto) 0.5 Eos # (Auto) 0.2 Baso # (Auto) 0.02 ESR PT 11.4 INR 1.00 APTT 29.2 Sodium 134 Potassium 3.8 Chloride 96 L Carbon Dioxide 32 Anion Gap 9 L BUN 15 Creatinine 0.8 Est GFR ( Amer) > 60 Est GFR (Non-Af Amer) > 60 POC Glucose (mg/dL) Random Glucose 362 H* D Hemoglobin A1c Calcium 9.1 Total Bilirubin 0.2 AST 21 ALT 21 Alkaline Phosphatase 115 Total Creatine Kinase 77 C-React Prot High Sens Total Protein 7.7 Albumin 3.9 Globulin 3.8 Albumin/Globulin Ratio 1.0 L Procalcitonin Urine Color Urine Appearance Urine pH Ur Specific [place] Urine Protein Urine Glucose (UA) Urine Ketones Urine Blood Urine Nitrate Urine Bilirubin Urine Urobilinogen Ur Leukocyte Esterase Urine Opiates Screen Urine Methadone Screen Ur Barbiturates Screen Carbamazepine Ur Phencyclidine Scrn Ur Amphetamines Screen U Benzodiazepines Scrn U Oth Cocaine Metabols U Cannabinoids Screen Alcohol, Quantitative Hepatitis A IgM Ab Hep Bs Antigen Hep B Core IgM Ab Hepatitis C Antibody 09/07/18 09/07/18 09/07/18 02:45 02:45 02:45 WBC RBC Hgb Hct MCV MCH MCHC RDW Plt Count MPV Gran % Lymph % (Auto) [place] % (Auto) Eos % (Auto) Baso % (Auto) Gran # Lymph # (Auto) Faulk # (Auto) Eos # (Auto) Baso # (Auto) ESR PT INR APTT Sodium Potassium Chloride Carbon Dioxide Anion Gap BUN Creatinine Est GFR ( Amer) Est GFR (Non-Af Amer) POC Glucose (mg/dL) Random Glucose Hemoglobin A1c 14.4 H Calcium Total Bilirubin AST ALT Alkaline Phosphatase Total Creatine Kinase C-React Prot High Sens > 15.00 H Total Protein Albumin Globulin Albumin/Globulin Ratio Procalcitonin 1.26 H Urine Color Urine Appearance Urine pH Ur Specific [place] Urine Protein Urine Glucose (UA) Urine Ketones Urine Blood Urine Nitrate Urine Bilirubin Urine Urobilinogen Ur Leukocyte Esterase Urine Opiates Screen Urine Methadone Screen Ur Barbiturates Screen Carbamazepine Ur Phencyclidine Scrn Ur Amphetamines Screen U Benzodiazepines Scrn U Oth Cocaine Metabols U Cannabinoids Screen Alcohol, Quantitative < 10 Hepatitis A IgM Ab Hep Bs Antigen Hep B Core IgM Ab Hepatitis C Antibody 09/07/18 09/07/18 09/07/18 03:01 06:34 07:26 WBC RBC Hgb Hct MCV MCH MCHC RDW Plt Count MPV Gran % Lymph % (Auto) Faulk % (Auto) Eos % (Auto) Baso % (Auto) Gran # Lymph # (Auto) Faulk # (Auto) Eos # (Auto) Baso # (Auto) ESR PT INR APTT Sodium Potassium Chloride Carbon Dioxide Anion Gap BUN Creatinine Est GFR ( Amer) Est GFR (Non-Af Amer) POC Glucose (mg/dL) 337 H 272 H Random Glucose Hemoglobin A1c Calcium Total Bilirubin AST ALT Alkaline Phosphatase Total Creatine Kinase C-React Prot High Sens Total Protein Albumin Globulin Albumin/Globulin Ratio Procalcitonin Urine Color Urine Appearance Urine pH Ur Specific [place] Urine Protein Urine Glucose (UA) Urine Ketones Urine Blood Urine Nitrate Urine Bilirubin Urine Urobilinogen Ur Leukocyte Esterase Urine Opiates Screen Negative Urine Methadone Screen Negative Ur Barbiturates Screen Negative Carbamazepine Ur Phencyclidine Scrn Negative Ur Amphetamines Screen Negative U Benzodiazepines Scrn Negative U Oth Cocaine Metabols Negative U Cannabinoids Screen Negative Alcohol, Quantitative Hepatitis A IgM Ab Hep Bs Antigen Hep B Core IgM Ab Hepatitis C Antibody 09/07/18 09/07/18 09/07/18 07:40 07:40 08:00 WBC RBC Hgb Hct MCV MCH MCHC RDW Plt Count MPV Gran % Lymph % (Auto) [place] % (Auto) Eos % (Auto) Baso % (Auto) Gran # Lymph # (Auto) Faulk # (Auto) Eos # (Auto) Baso # (Auto) ESR 31 H PT INR APTT Sodium Potassium Chloride Carbon Dioxide Anion Gap BUN Creatinine Est GFR ( Amer) Est GFR (Non-Af Amer) POC Glucose (mg/dL) Random Glucose Hemoglobin A1c Calcium Total Bilirubin AST ALT Alkaline Phosphatase Total Creatine Kinase C-React Prot High Sens Total Protein Albumin Globulin Albumin/Globulin Ratio Procalcitonin Urine Color Yellow Urine Appearance Clear Urine pH 7.0 Ur Specific [place] 1.015 Urine Protein Negative Urine Glucose (UA) Negative Urine Ketones Negative Urine Blood Negative Urine Nitrate Negative Urine Bilirubin Negative Urine Urobilinogen 0.2 Ur Leukocyte Esterase Negative Urine Opiates Screen Urine Methadone Screen Ur Barbiturates Screen Carbamazepine Ur Phencyclidine Scrn Ur Amphetamines Screen U Benzodiazepines Scrn U Oth Cocaine Metabols U Cannabinoids Screen Alcohol, Quantitative Hepatitis A IgM Ab Negative Hep Bs Antigen Negative Hep B Core IgM Ab Negative Hepatitis C Antibody Reactive 09/07/18 09/07/18 09/07/18 08:31 11:06 16:21 WBC RBC Hgb Hct MCV MCH MCHC RDW Plt Count MPV Gran % Lymph % (Auto) [place] % (Auto) Eos % (Auto) Baso % (Auto) Gran # Lymph # (Auto) Faulk # (Auto) Eos # (Auto) Baso # (Auto) ESR PT INR APTT Sodium Potassium Chloride Carbon Dioxide Anion Gap BUN Creatinine Est GFR ( Amer) Est GFR (Non-Af Amer) POC Glucose (mg/dL) 265 H 307 H Random Glucose Hemoglobin A1c Calcium Total Bilirubin AST ALT Alkaline Phosphatase Total Creatine Kinase C-React Prot High Sens Total Protein Albumin Globulin Albumin/Globulin Ratio Procalcitonin Urine Color Urine Appearance Urine pH Ur Specific [place] Urine Protein Urine Glucose (UA) Urine Ketones Urine Blood Urine Nitrate Urine Bilirubin Urine Urobilinogen Ur Leukocyte Esterase Urine Opiates Screen Urine Methadone Screen Ur Barbiturates Screen Carbamazepine < 3 L Ur Phencyclidine Scrn Ur Amphetamines Screen U Benzodiazepines Scrn U Oth Cocaine Metabols U Cannabinoids Screen Alcohol, Quantitative Hepatitis A IgM Ab Hep Bs Antigen Hep B Core IgM Ab Hepatitis C Antibody Attending/Attestation - Attestation I have personally seen and examined this patient.: Yes I have fully participated in the care of the patient.: Yes I have reviewed all pertinent clinical information: Yes Notes (Text): Left deltoid abscess s/p ID by surgery f/u cultures c/w empiric antibiotics B/L LE tenderness - US dop to r/o EVT DM Levemir 12u RISS Send A1c Polysubstance abuse 09/07/18 18:21
[2018-09-07 14:52] LABS: BARBITURATES, UR NEGATIVE (NEGATIVE); BENZODIAZEPINES, UR NEGATIVE (NEGATIVE); OPIATES, UR NEGATIVE (NEGATIVE); PHENCYCLIDINE, UR NEGATIVE (NEGATIVE)
--- NOTE | 2018-09-07 16:18 | CARD ---
APPROVED REPORT Date of service: 09/07/2018 EKG Measurement Heart [id number] <Conclusion> Poor data quality, interpretation may be adversely affected Normal sinus rhythm Minimal voltage criteria for LVH, may be normal variant Borderline ECG
[2018-09-07 17:12] VITALS: BMI 28.0
--- NOTE | 2018-09-07 18:07 | CARD ---
APPROVED REPORT Date of service: 09/07/2018 EXAM: Two-dimensional and M-mode echocardiogram with Doppler and color Doppler. INDICATION Infection:Rule out subacute bacterial endocarditis 2D DIMENSIONS Left Atrium (2D)3.8 (1.6-4.0cm)IVSd1.2 (0.7-1.1cm) LVDd4.8 (3.9-5.9cm)PWd1.3 (0.7-1.1cm) LVDs4.0 (2.5-4.0cm)FS (%) 15.3 % LVEF (%)32.1 (>50%) M-Mode DIMENSIONS Aortic Root3.20 (2.2-3.7cm)Aortic Cusp Exc.1.90 (1.5-2.0cm) Aortic Valve AoV Peak Uahfttvb573.0cm/Komal Peak GR.10mmHg Mitral Valve MV E Qxvubwxn38.8cm/sMV A Yubrwkpx82.9cm/sE/A ratio0.6 TDI Lateral E' Peak V10.10cm/sMedial E' Peak V5.56cm/sE/Lateral E'5.3 E/Medial E'9.7 Pulmonary Valve PV Peak Npyumbfb89.6cm/sPV Peak Grad.2mmHg Tricuspid Valve TR Peak [id number]/sRAP [id number] Peak Gr.14mmHg [id number] LEFT VENTRICLE The left ventricle is normal size. There is mild concentric left ventricular hypertrophy. The systolic function is mildly to moderately impaired.EF-35-40% There is mild to moderate hypokinesis in the apical anterior wall. Transmitral Doppler flow pattern is Grade III-reversible restrictive diastolic dysfunction. No left ventricle thrombus noted on this study. There is no ventricular septal defect visualized. There is no left ventricular aneurysm. There is no mass noted in the left ventricle. RIGHT VENTRICLE The right ventricle is normal size. There is normal right ventricular wall thickness. The right ventricular systolic function is normal. ATRIA The left atrium size is normal. The right atrium size is normal. The interatrial septum is intact with no evidence for an atrial septal defect. AORTIC VALVE The aortic valve is thickened but opens well. No aortic regurgitation is present. There is no aortic valvular stenosis. There is no aortic valvular vegetation. MITRAL VALVE The mitral valve is thickened but opens well. There is no mitral valve regurgitation noted. There is no mitral valve stenosis. There is no evidence of mitral valve prolapse. TRICUSPID VALVE The tricuspid valve leaflets are thickened , but open well. There is trace tricuspid regurgitation.RVSP-24 mmof Hg. There is no tricuspid valve stenosis. There is no tricuspid valve prolapse or vegetation. PULMONIC VALVE The pulmonary valve is normal in structure. There is no pulmonic valvular regurgitation. There is no pulmonic valvular stenosis. GREAT VESSELS The aortic root is normal in size. The ascending aorta is normal in size. The pulmonary artery is normal. The IVC is normal in size and collapses >50% with inspiration. PERICARDIAL EFFUSION There is no pleural effusion. There is no pericardial effusion. <Conclusion> Normal Chamber Size. The systolic function is mildly to moderately impaired.EF-35-40% There is mild to moderate hypokinesis in the apical anterior wall. There is trace tricuspid regurgitation.RVSP-24 mmof Hg. The IVC is normal in size and collapses >50% with inspiration. There is no pericardial effusion.
[2018-09-07] MEDS: Insulin Reg-MEDIUM-Coverage SC SCH ×2 (19:01→21:54)
[2018-09-07] MEDS: Insulin Detemir 100 units/ml Vial (Levemir) SC SCH (21:57)
[2018-09-08] MEDS: Pantoprazole 40 mg EC Tab PO SCH (05:29)
[2018-09-08] MEDS: Insulin Reg-MEDIUM-Coverage SC SCH ×3 (06:49→20:14)
[2018-09-08] MEDS: Vancomycin 1.5 GM in Sodium Chloride 0.9% 500 ML IVPB SCH (07:39)
--- NOTE | 2018-09-08 08:09 | CP.PCM.PN ---
Subjective - Date & Time of Evaluation Date of Evaluation: 09/08/18 Time of Evaluation: 07:05 - Subjective Subjective: General surgery progress note for Dr. Fitch Patient seen and examined this am at bedside. NAEO per nursing. Packing removed this morning at bedside and new clean dressing placed. Patient states his pain at the site is improved. Patient otherwise denies KENDALL, SOB, CP, f/c, n/v, abdominal pain, and extremity pain/weakness. Objective - Vital Signs/Intake and Output Vital Signs (last 24 hours): Temp Pulse Resp BP Pulse Ox 98.8 F 95 H 20 123/77 100 09/07/18 14:00 09/08/18 06:19 09/07/18 20:13 09/08/18 06:19 09/07/18 14:00 - Medications Medications: Current Medications Acetaminophen (Tylenol 325mg Tab) 650 mg PO Q6H PRN PRN Reason: Fever >100.4 F Carbamazepine (Tegretol) 200 mg PO DAILY BRIANDA; Protocol Dextrose (Dextrose 50% Inj) 0 ml IV STAT PRN; Protocol PRN Reason: Hypoglycemia Protocol Enoxaparin Sodium (Lovenox) 40 mg SC DAILY BRIANDA; Protocol Dextrose (Dextrose 5% In Water 1000 Ml) 1,000 mls @ 0 mls/hr IV .Q0M PRN; Protocol PRN Reason: Hypoglycemia Protocol Vancomycin HCl 1.5 gm/ Sodium (Chloride) 500 mls @ 167 mls/hr IVPB Q12H BRIANDA; Protocol Last Admin: 09/08/18 07:39 Dose: 167 mls/hr Insulin Detemir (Levemir) 12 unit SC HS [facility] Last Admin: 09/07/18 21:57 Dose: 12 units Insulin Human Regular (Humulin R Med) 0 units SC ACHS BRIANDA; Protocol Last Admin: 09/08/18 06:49 Dose: 5 units Morphine Sulfate (Morphine) 2 mg IVP Q4H PRN PRN Reason: Pain, severe (8-10) Nicotine (Nicoderm Cq) 1 patch TD DAILY [facility] Last Admin: 09/07/18 12:01 Dose: 1 patch Ondansetron HCl (Zofran Inj) 4 mg IVP Q4H PRN PRN Reason: Nausea/Vomiting Last Admin: 09/08/18 05:36 Dose: 4 mg Pantoprazole Sodium (Protonix Ec Tab) 40 mg PO 0600 [facility] Last Admin: 09/08/18 05:29 Dose: Not Given Vitamin A (Vitamin A & D Oint Ud Foilpak) 1 ea TOP Q2 PRN PRN Reason: Dry mouth - Labs Labs: 09/07/18 02:45 09/07/18 02:45 PT 11.4 SECONDS (9.4-12.5) 09/07/18 02:45 INR 1.00 09/07/18 02:45 APTT 29.2 Seconds (25.1-36.5) 09/07/18 02:45 - Constitutional Appears: Well, Non-toxic, No Acute Distress - Head Exam Head Exam: ATRAUMATIC, NORMOCEPHALIC - Eye Exam Eye Exam: EOMI - ENT Exam ENT Exam: Mucous Membranes Moist - Respiratory Exam Respiratory Exam: NORMAL BREATHING PATTERN - Cardiovascular Exam Cardiovascular Exam: REGULAR RHYTHM - GI/Abdominal Exam GI & Abdominal Exam: Soft. absent: Distended, Guarding, Tenderness - Extremities Exam Extremities Exam: absent: Calf Tenderness, Pedal Edema Additional comments: left deltoid incision is clean and dry, packing removed, clean dressing placed, no purulent fluid expressed - Neurological Exam Neurological Exam: Alert, Awake, Oriented x3 - Psychiatric Exam Psychiatric exam: Normal Affect, Normal Mood - Skin Skin Exam: Dry, Intact, Normal Color, Warm Assessment and Plan - Assessment and Plan (Free Text) Assessment: 53 yr old male with left deltoid abscess s/p bedside I&D 09/07 Plan: continue with lower wound care to Lower extremity continue abx per ID recs no further surgical intervention needed at this time surgery will sign off, please reconsult as necessary discussed with Dr. Constantine Pierre, PGY 1
[2018-09-08] MEDS: Enoxaparin 40 mg Syringe SC SCH (10:27)
[2018-09-08] MEDS ORDERED: Morphine 2 mg/ml ISec IVP PRN (10:36)
[2018-09-08 11:24] LABS: GRAN % 85.8 % (50.0-68.0); HEMOGLOBIN 15.7 g/dL (14.0-18.0); LYMPH # 0.8 (1.2-3.4); LYMPH % 11.3 % (22.0-35.0); MEAN CORPUSCULAR HEMOGLOBIN 28.4 pg (25.0-35.0); MEAN CORPUSCULAR HGB CONC 34.3 g/dl (31.0-37.0); MEAN PLATELET VOLUME 10.2 fl (7.0-11.0); MONO # 0.2 (0.1-0.6); MONO % 2.9 % (1.0-6.0); RBC 5.52 10^6/uL (3.5-6.1); RED CELL DISTRIBUTION WIDTH 12.9 % (11.5-14.5)
[2018-09-08 12:14] LABS: ALBUMIN 4.2 g/dL (3.0-4.8); ALT/SGPT 18 U/L (7-56); AST/SGOT 25 U/L (17-59); BLOOD UREA NITROGEN 14 mg/dL (7-21); CALCIUM 9.8 mg/dL (8.4-10.5); GFR NON-AFRICAN AMERICAN > 60
[2018-09-08] MEDS: Insulin Lispro 1 UNITS/0.01 ML SC SCH ×2 (12:14→20:14)
--- NOTE | 2018-09-08 14:58 | CP.PCM.PN ---
<StormMariusz Jennifer - Last Filed: 09/08/18 14:52> Subjective - Date & Time of Evaluation Date of Evaluation: 09/08/18 Time of Evaluation: 14:52 - Subjective Subjective: Medicine progress note: Storm PGY - 2 Patient seen and examined bedside; patient states that he feels withdrawal symptoms, including nausea/vomiting. Also admits to pain. Otherwise has no new complaints, no acute overnight events. Objective - Vital Signs/Intake and Output Vital Signs (last 24 hours): Temp Pulse Resp BP Pulse Ox 98.6 F 80 20 153/97 H 96 09/08/18 14:00 09/08/18 14:00 09/08/18 14:00 09/08/18 14:00 09/08/18 14:00 - Medications Medications: Current Medications Acetaminophen (Tylenol 325mg Tab) 650 mg PO Q6H PRN PRN Reason: Fever >100.4 F Carbamazepine (Tegretol) 200 mg PO DAILY [facility]; Protocol Last Admin: 09/08/18 10:26 Dose: 200 mg Clonidine HCl (Catapres) 0.1 mg PO BID PRN PRN Reason: withdrawal sx only Dextrose (Dextrose 50% Inj) 0 ml IV STAT PRN; Protocol PRN Reason: Hypoglycemia Protocol Enoxaparin Sodium (Lovenox) 40 mg SC DAILY [facility]; Protocol Last Admin: 09/08/18 10:27 Dose: 40 mg Dextrose (Dextrose 5% In Water 1000 Ml) 1,000 mls @ 0 mls/hr IV .Q0M PRN; Protocol PRN Reason: Hypoglycemia Protocol Vancomycin HCl 1.5 gm/ Sodium (Chloride) 500 mls @ 167 mls/hr IVPB Q12H [facility]; Protocol Last Admin: 09/08/18 07:39 Dose: 167 mls/hr Insulin Detemir (Levemir) 12 unit SC HS [facility] Last Admin: 09/07/18 21:57 Dose: 12 units Insulin Human Lispro (Humalog) 4 units SC AC [facility] Last Admin: 09/08/18 12:14 Dose: 4 unit Insulin Human Regular (Humulin R Med) 0 units SC ACHS [facility]; Protocol Last Admin: 09/08/18 12:13 Dose: 1 units Morphine Sulfate (Morphine) 2 mg IVP Q6H PRN PRN Reason: Pain, severe (8-10) Nicotine (Nicoderm Cq) 1 patch TD DAILY [facility] Last Admin: 09/08/18 10:26 Dose: 1 patch Ondansetron HCl (Zofran Inj) 4 mg IVP Q4H PRN PRN Reason: Nausea/Vomiting Last Admin: 09/08/18 10:27 Dose: 4 mg Pantoprazole Sodium (Protonix Ec Tab) 40 mg PO 0600 [facility] Last Admin: 09/08/18 05:29 Dose: Not Given Vitamin A (Vitamin A & D Oint Ud Foilpak) 1 ea TOP Q2 PRN PRN Reason: Dry mouth - Labs Labs: 09/08/18 11:00 09/08/18 11:00 PT 11.4 SECONDS (9.4-12.5) 09/07/18 02:45 INR 1.00 09/07/18 02:45 APTT 29.2 Seconds (25.1-36.5) 09/07/18 02:45 - Constitutional Appears: Non-toxic, No Acute Distress, Chronically Ill - Head Exam Head Exam: ATRAUMATIC, NORMAL INSPECTION, NORMOCEPHALIC - Eye Exam Eye Exam: EOMI, Normal appearance, PERRL Pupil Exam: NORMAL ACCOMODATION, PERRL - ENT Exam ENT Exam: Mucous Membranes Moist, Normal Exam - Neck Exam Neck Exam: Full ROM, Normal Inspection. absent: Lymphadenopathy - Respiratory Exam Respiratory Exam: Clear to Ausculation Bilateral, NORMAL BREATHING PATTERN - Cardiovascular Exam Cardiovascular Exam: REGULAR RHYTHM, +S1, +S2. absent: Murmur - GI/Abdominal Exam GI & Abdominal Exam: Soft, Normal Bowel Sounds. absent: Tenderness - Extremities Exam Extremities Exam: Full ROM, Normal Capillary Refill, Normal Inspection. absent: Joint Swelling, Pedal Edema - Back Exam Back Exam: NORMAL INSPECTION - Neurological Exam Neurological Exam: Alert, Awake, CN II-XII Intact, Normal Gait, Oriented x3 - Psychiatric Exam Psychiatric exam: Normal Affect, Normal Mood - Skin Skin Exam: Dry, Intact, Normal Color, Warm Additional comments: many wounds on bilateral lower extremities; wound and abscess on LUE Assessment and Plan - Assessment and Plan (Free Text) Assessment: 53 year old male with a past medical history significant for HTN, unspecified DM, untreated Hepatitis C, Tobacco Use Disorder, Polysubstance Abuse (Heroin and Cocaine) and unspecified Seizure Disorder who presents with two weeks of acutely worsening chronic RUE pain as well as acutely worsening chronic bilateral lower extremity pain. Plan: Left Subdeltoid Abscess with Overlying Cellulitis, likely 2/2 IVDA - CT Upper Extremity showed 3.5x2.6cm intra subdeltoid abscess - Bedside I&D performed in ED by surgery team 09/07 - Echocardiogram shows EF moderately impaired at 35% - Blood cultures negative - Empiric IV Vancomycin (Day 1) - Morphine 2mg IVP Q4 PRN changed to q6PRN for severe pain - Tylenol PRN for fever - Surgery and ID consulted, all recommendations appreciated Bilateral Lower Extremity Pain with LLE Chronic Wound - Bilateral Venous Doppler US negative for DVT's - Morphine as above for pain control - Wound Care referral - Empiric antibiotics as above Unspecified Seizure Disorder - Carbamazepine level: <3 (Low) - Restarted home Tegretol 200mg daily - Seizure precautions; aspiration precautions Unspecified DM - SSI-Medium and Accuchecks ACHS - Levemir 12u HS; added 4U AC because sugars are uncontrolled - A1c high - Carbohydrate Consistent Diet Tobacco Use Disorder -Nicoderm CQ transdermal patch daily Polysubstance Abuse - Added clonidine .1 BID PRN for withdrawal symptoms, with HR and BP parameters - Counseled on cessation provided and will be reinforced daily GI Prophylaxis: Protonix DVT Prophylaxis: Lovenox <Caridad Fuentes R - Last Filed: 09/10/18 12:31> Objective - Vital Signs/Intake and Output Vital Signs (last 24 hours): Temp Pulse Resp BP Pulse Ox 99 F 97 H 20 130/76 100 09/10/18 06:00 09/10/18 06:00 09/10/18 06:00 09/10/18 10:39 09/10/18 06:00 - Medications Medications: Current Medications Acetaminophen (Tylenol 325mg Tab) 650 mg PO Q6H PRN PRN Reason: Fever >100.4 F Bacitracin (Bacitracin) 0 gm TOP BID [facility] Last Admin: 09/10/18 10:24 Dose: 1 applic Carbamazepine (Tegretol) 200 mg PO DAILY [facility]; Protocol Last Admin: 09/10/18 10:24 Dose: 200 mg Clonidine HCl (Catapres) 0.1 mg PO BID PRN PRN Reason: withdrawal sx only Last Admin: 09/10/18 10:39 Dose: 0.1 mg Dextrose (Dextrose 50% Inj) 0 ml IV STAT PRN; Protocol PRN Reason: Hypoglycemia Protocol Enoxaparin Sodium (Lovenox) 40 mg SC DAILY [facility]; Protocol Last Admin: 09/10/18 10:25 Dose: 40 mg Dextrose (Dextrose 5% In Water 1000 Ml) 1,000 mls @ 0 mls/hr IV .Q0M PRN; Protocol PRN Reason: Hypoglycemia Protocol Vancomycin HCl 1.5 gm/ Sodium (Chloride) 500 mls @ 167 mls/hr IVPB Q12H [facility]; Protocol Last Admin: 09/10/18 10:24 Dose: 167 mls/hr Insulin Detemir (Levemir) 12 unit SC HS [facility] Last Admin: 09/08/18 23:21 Dose: 12 units Insulin Human Lispro (Humalog) 4 units SC AC [facility] Last Admin: 09/10/18 12:24 Dose: 4 unit Insulin Human Regular (Humulin R Med) 0 units SC ACHS [facility]; Protocol Last Admin: 09/10/18 12:24 Dose: 1 units Morphine Sulfate (Morphine) 1 mg IVP Q6H PRN PRN Reason: Pain, severe (8-10) Nicotine (Nicoderm Cq) 1 patch TD DAILY [facility] Last Admin: 09/10/18 10:29 Dose: Not Given Ondansetron HCl (Zofran Inj) 4 mg IVP Q4H PRN PRN Reason: Nausea/Vomiting Last Admin: 09/08/18 10:27 Dose: 4 mg Pantoprazole Sodium (Protonix Ec Tab) 40 mg PO 0600 [facility] Last Admin: 09/10/18 07:02 Dose: 40 mg Vitamin A (Vitamin A & D Oint Ud Foilpak) 1 ea TOP Q2 PRN PRN Reason: Dry mouth - Labs Labs: 09/10/18 07:00 09/10/18 07:00 PT 11.4 SECONDS (9.4-12.5) 09/07/18 02:45 INR 1.00 09/07/18 02:45 APTT 29.2 Seconds (25.1-36.5) 09/07/18 02:45 Attending/Attestation - Attestation I have personally seen and examined this patient.: Yes I have fully participated in the care of the patient.: Yes I have reviewed all pertinent clinical information, including history, physical exam and plan: Yes Notes (Text): Patient seen and examined by me with resident at 10:15AM on 09/08/18. Case including HPI, physical exam, and assessment and plan discussed with resident. Agree with above with following additions/corrections. Patient is a 53-year-old male with past medical history significant for attention, diabetes, untreated hepatitis C, tobacco abuse, heroin and cocaine abuse, and seizure disorder that presented to emergency room with bilateral lowe r extremity pain and worsening left upper extremity pain. Patient states he is feeling ok. States he feels like he is withdrawing from drug abuse. Complains of diarrhea, nausea, and vomiting. No abdominal pain. No headaches or dizziness. No fevers or chills. No chest pain or shortness of breath. No dysuria. Physical exam: General: Awake and alert sitting lying in bed in no acute distress HEENT: Normocephalic, atraumatic. Extraocular muscles intact, pupils equal and reactive, no scleral icterus. Oropharynx is pink and moist. Neck is supple. Cardiovascular: Regular rhythm. Normal S1 and S2. No murmurs, rubs, or gallops appreciated Pulmonary: Normal respiratory effort. No rhonchi, rales, or wheezing appreciated. Gastrointestinal: Soft, nondistended. Nontender. Positive bowel sounds all 4 quadrants. No guarding. Musculoskeletal: Moves all extremities. Bilateral lower extremity tenderness. Multiple areas of healing wounds from IV drug abuse. Dressing left upper extremity clean, dry, and intact. Central nervous system: AAOx 3 Dermatologic: Skin warm and dry. Assessment and plan: Patient is a 53-year-old male with past medical history significant for attention, diabetes, untreated hepatitis C, tobacco abuse, heroin and cocaine abuse, and seizure disorder that presented to emergency room with bilateral lower extremity pain and worsening left upper extremity pain. 1. Left deltoid abscess. Secondary to IV drug abuse and injecting in area. Left shoulder xray per radiologist showed cystic degenerative changes seen in bony glenoid. Left upper extremity CT per radiologist showed lateral deltoid abscess. Blood cultures with no growth to date. Wound culture pending. ID following, recommendations appreciated. Continue vancomycin. Wean off pain medications. Surgery following, recommendations appreciated. S/P bedside I&D 09/07/18. 2D echo per senior web developer showed systolic function is mildly to moderately impaired, EF 35-40%, mild to moderate hypokinesis in apical anterior wall, trace tricuspid regurgitation, no pericardial effusion. 2. Bilateral lower extremity pain. Venous dopplers negative for DVT 3. DM2 with hyperglycemia. Continue insulin sliding scale. Add Humalog 4units AC. Continue Levemir at bedtime. Monitor accuchecks 4. Polysubstance abuse. Patient counseled on cessation. Placed on clonidine prn for withdrawal symptoms. 5. History of seizure disorder. Continue home tegretol 6. Tobacco abuse.Counseled on cessation 7. GI/DVT prophylaxis. Protonix/Lovenox 8. Patient is a full code. Case was discussed in detail with the patient regarding current diagnosis and treatment plan. All questions answered.
[2018-09-08] MEDS ORDERED: Potassium Chloride 20 mEq ER Tab PO ONE (17:27)
[2018-09-08] MEDS: Magnesium Sulfate 1 gm in D5W 1 GM/100 ML BAG IVPB ONE (17:42)
[2018-09-08] MEDS: Insulin Detemir 100 units/ml Vial (Levemir) SC SCH (23:21)
[2018-09-09] MEDS: Vancomycin 1.5 GM in Sodium Chloride 0.9% 500 ML IVPB SCH ×3 (02:08→22:25)
--- NOTE | 2018-09-09 04:39 | PN ---
DATE: 09/08/2018 SUBJECTIVE: The patient seen earlier today in #275, bed #2. PHYSICAL EXAMINATION: VITAL SIGNS: Temperature is 97, blood pressure 130/80, respiratory rate 18. HEENT: Unremarkable. NECK: Supple. LUNGS: Decreased breath sounds. HEART: Normal S1 and S2. ABDOMEN: Soft. LABORATORY EXAMINATION: Reveals BUN of 14, creatinine of 0.5, WBC is noted. Microbiology reveals the blood cultures are negative and abscess cultures, no growth at this time. Nasal MRSA screen is negative. Review of orders reveals the patient to be on vancomycin and Zosyn. ASSESSMENT AND PLAN: This is a 53-year-old male seen earlier today, was hypertensive, seizures, hepatitis C, , bipolar, diabetes, who was admitted with systemic inflammatory response syndrome, left deltoid abscess, and currently on vancomycin. We will follow closely with you. The patient's Zosyn was discontinued. Brennan Kline MD
[2018-09-09] MEDS: Magnesium Sulfate 1 gm in D5W 1 GM/100 ML BAG IVPB ONE (05:35)
[2018-09-09] MEDS: Pantoprazole 40 mg EC Tab PO SCH (05:35)
[2018-09-09] MEDS: Insulin Reg-MEDIUM-Coverage SC SCH ×4 (06:00→16:33)
[2018-09-09] MEDS: Insulin Lispro 1 UNITS/0.01 ML SC SCH ×3 (08:20→17:00)
[2018-09-09] MEDS: Enoxaparin 40 mg Syringe SC SCH (09:05)
[2018-09-09] MEDS ORDERED: Morphine 2 mg/ml ISec IVP PRN (10:39)
--- NOTE | 2018-09-09 15:16 | CP.PCM.PN ---
<Adin Fitch - Last Filed: 09/09/18 15:08> Subjective - Date & Time of Evaluation Date of Evaluation: 09/09/18 Time of Evaluation: 15:08 - Subjective Subjective: Internal Medicine Progress Note (Hospitalist's Service) Patient seen and assessed at bedside. No acute events noted overnight. At this time he denies any complaints and 12 point ROS is unremarkable. Objective - Vital Signs/Intake and Output Vital Signs (last 24 hours): Temp Pulse Resp BP Pulse Ox 98.6 F 81 20 148/79 100 09/09/18 06:00 09/09/18 09:04 09/09/18 06:00 09/09/18 09:04 09/09/18 06:00 Intake and Output: 09/09/18 09/09/18 06:59 18:59 Intake Total 0 Balance 0 - Medications Medications: Current Medications Acetaminophen (Tylenol 325mg Tab) 650 mg PO Q6H PRN PRN Reason: Fever >100.4 F Bacitracin (Bacitracin) 0 gm TOP BID [facility] Carbamazepine (Tegretol) 200 mg PO DAILY [facility]ANDA; Protocol Last Admin: 09/09/18 09:05 Dose: 200 mg Clonidine HCl (Catapres) 0.1 mg PO BID PRN PRN Reason: withdrawal sx only Last Admin: 09/09/18 09:04 Dose: 0.1 mg Dextrose (Dextrose 50% Inj) 0 ml IV STAT PRN; Protocol PRN Reason: Hypoglycemia Protocol Enoxaparin Sodium (Lovenox) 40 mg SC DAILY [facility]; Protocol Last Admin: 09/09/18 09:05 Dose: 40 mg Dextrose (Dextrose 5% In Water 1000 Ml) 1,000 mls @ 0 mls/hr IV .Q0M PRN; Protocol PRN Reason: Hypoglycemia Protocol Vancomycin HCl 1.5 gm/ Sodium (Chloride) 500 mls @ 167 mls/hr IVPB Q12H [facility]; Protocol Last Admin: 09/09/18 08:33 Dose: 167 mls/hr Insulin Detemir (Levemir) 12 unit SC HS [facility] Last Admin: 09/08/18 23:21 Dose: 12 units Insulin Human Lispro (Humalog) 4 units SC AC [facility] Last Admin: 09/09/18 12:00 Dose: Not Given Insulin Human Regular (Humulin R Med) 0 units SC ACHS [facility]; Protocol Last Admin: 09/09/18 12:00 Dose: Not Given Morphine Sulfate (Morphine) 1 mg IVP Q6H PRN PRN Reason: Pain, severe (8-10) Nicotine (Nicoderm Cq) 1 patch TD DAILY [facility] Last Admin: 09/09/18 09:05 Dose: 1 patch Ondansetron HCl (Zofran Inj) 4 mg IVP Q4H PRN PRN Reason: Nausea/Vomiting Last Admin: 09/08/18 10:27 Dose: 4 mg Pantoprazole Sodium (Protonix Ec Tab) 40 mg PO 0600 [facility] Last Admin: 09/09/18 05:35 Dose: 40 mg Vitamin A (Vitamin A & D Oint Ud Foilpak) 1 ea TOP Q2 PRN PRN Reason: Dry mouth - Labs Labs: 09/08/18 11:00 09/08/18 11:00 PT 11.4 SECONDS (9.4-12.5) 09/07/18 02:45 INR 1.00 09/07/18 02:45 APTT 29.2 Seconds (25.1-36.5) 09/07/18 02:45 - Constitutional Appears: Non-toxic, No Acute Distress - Head Exam Head Exam: ATRAUMATIC, NORMOCEPHALIC - Eye Exam Eye Exam: EOMI, Normal appearance - ENT Exam ENT Exam: Mucous Membranes Moist, Normal Exam - Neck Exam Neck Exam: Full ROM - Respiratory Exam Respiratory Exam: Clear to Ausculation Bilateral, NORMAL BREATHING PATTERN - Cardiovascular Exam Cardiovascular Exam: REGULAR RHYTHM, RRR, +S1, +S2 - GI/Abdominal Exam GI & Abdominal Exam: Soft, Normal Bowel Sounds. absent: Tenderness - Extremities Exam Extremities Exam: absent: Calf Tenderness Additional comments: Healing abrasion noted on LLE; LUE noted to have wound dressing that is clean, dry and intact - Neurological Exam Neurological Exam: Alert, Awake - Psychiatric Exam Psychiatric exam: Normal Affect, Normal Mood - Skin Skin Exam: Dry, Warm Assessment and Plan - Assessment and Plan (Free Text) Assessment: 53 year old male with a past medical history significant for HTN, unspecified DM, untreated Hepatitis C, Tobacco Use Disorder, Polysubstance Abuse (Heroin and Cocaine) and unspecified Seizure Disorder who presents with two weeks of acutely worsening chronic RUE pain as well as acutely worsening chronic bilateral lower extremity pain. Plan: 1. Left Subdeltoid Abscess with Overlying Cellulitis -Likely secondary to IVDA -CT Upper Extremity showed 3.5x2.6cm intra subdeltoid abscess -Bedside I&D performed in ED by surgery team 09/07 -2D Echocardiogram showed EF moderately impaired at 35% -Wound cultures growing gram positive cocci; Blood cultures negative -Continue empiric IV Vancomycin (Day 3) -Tapered Morphine 1mg IVP Q6 PRN for pain control -Tylenol PRN for fever -Wound Care: 4x4 with tape changed daily -Surgery and ID consulted, all recommendations appreciated 2. Bilateral Lower Extremity Pain with LLE Chronic Wound -Bilateral Venous Doppler US negative for DVT's -Morphine as above for pain control -Wound Care referral -Empiric antibiotics as above 3. Unspecified Seizure Disorder -Carbamazepine level: <3 (Low) -Continue home Tegretol 200mg daily -Seizure precautions 4. Unspecified DM -SSI-Medium and Accuchecks ACHS -Levemir 12u HS and Humalog 4u AC -A1c elevated at 14.4 -Carbohydrate Consistent Diet 5. Tobacco Use Disorder -Nicoderm CQ transdermal patch daily 6. Polysubstance Abuse -UDS negative -Alcohol level: <10 -Clonidine 0.1mg PO BID PRN for symptoms of heroin withdrawal -Counseled on cessation provided and will be reinforced daily GI Prophylaxis: Protonix DVT Prophylaxis: Lovenox Code Status: Full Code Patient seen and case discussed with attending, Dr. Lawson. Adin Fitch, PGY2 <Caridad Fuentes R - Last Filed: 09/10/18 12:41> Objective - Vital Signs/Intake and Output Vital Signs (last 24 hours): Temp Pulse Resp BP Pulse Ox 99 F 97 H 20 130/76 100 09/10/18 06:00 09/10/18 06:00 09/10/18 06:00 09/10/18 10:39 09/10/18 06:00 - Medications Medications: Current Medications Acetaminophen (Tylenol 325mg Tab) 650 mg PO Q6H PRN PRN Reason: Fever >100.4 F Bacitracin (Bacitracin) 0 gm TOP BID [facility] Last Admin: 09/10/18 10:24 Dose: 1 applic Carbamazepine (Tegretol) 200 mg PO DAILY [facility]; Protocol Last Admin: 09/10/18 10:24 Dose: 200 mg Clonidine HCl (Catapres) 0.1 mg PO BID PRN PRN Reason: withdrawal sx only Last Admin: 09/10/18 10:39 Dose: 0.1 mg Dextrose (Dextrose 50% Inj) 0 ml IV STAT PRN; Protocol PRN Reason: Hypoglycemia Protocol Enoxaparin Sodium (Lovenox) 40 mg SC DAILY [facility]; Protocol Last Admin: 09/10/18 10:25 Dose: 40 mg Dextrose (Dextrose 5% In Water 1000 Ml) 1,000 mls @ 0 mls/hr IV .Q0M PRN; Protocol PRN Reason: Hypoglycemia Protocol Vancomycin HCl 1.5 gm/ Sodium (Chloride) 500 mls @ 167 mls/hr IVPB Q12H [facility]; Protocol Last Admin: 09/10/18 10:24 Dose: 167 mls/hr Insulin Detemir (Levemir) 12 unit SC HS [facility] Last Admin: 09/08/18 23:21 Dose: 12 units Insulin Human Lispro (Humalog) 4 units SC AC [facility] Last Admin: 09/10/18 12:24 Dose: 4 unit Insulin Human Regular (Humulin R Med) 0 units SC ACHS [facility]; Protocol Last Admin: 09/10/18 12:24 Dose: 1 units Morphine Sulfate (Morphine) 1 mg IVP Q6H PRN PRN Reason: Pain, severe (8-10) Nicotine (Nicoderm Cq) 1 patch TD DAILY [facility] Last Admin: 09/10/18 10:29 Dose: Not Given Ondansetron HCl (Zofran Inj) 4 mg IVP Q4H PRN PRN Reason: Nausea/Vomiting Last Admin: 09/08/18 10:27 Dose: 4 mg Pantoprazole Sodium (Protonix Ec Tab) 40 mg PO 0600 [facility] Last Admin: 09/10/18 07:02 Dose: 40 mg Vitamin A (Vitamin A & D Oint Ud Foilpak) 1 ea TOP Q2 PRN PRN Reason: Dry mouth - Labs Labs: 09/10/18 07:00 09/10/18 07:00 PT 11.4 SECONDS (9.4-12.5) 09/07/18 02:45 INR 1.00 09/07/18 02:45 APTT 29.2 Seconds (25.1-36.5) 09/07/18 02:45 Attending/Attestation - Attestation I have personally seen and examined this patient.: Yes I have fully participated in the care of the patient.: Yes I have reviewed all pertinent clinical information, including history, physical exam and plan: Yes Notes (Text): Patient seen and examined by me with resident at 10:50AM on 09/09/18. Case including HPI, physical exam, and assessment and plan discussed with resident. Agree with above with following additions/corrections. Patient is a 53-year-old male with past medical history significant for attention, diabetes, untreated hepatitis C, tobacco abuse, heroin and cocaine abuse, and seizure disorder that presented to emergency room with bilateral lower extremity pain and worsening left upper extremity pain. Patient states he is feeling ok. Still feels like he is withdrawing from heroin. No nausea or vomiting today. Denies diarrhea today. Complains of lower extremity pain. No abdominal pain. No headaches or dizziness. No fevers or chills. No chest pain or shortness of breath. No dysuria. Physical exam: General: Awake and alert lying in bed in no acute distress HEENT: Normocephalic, atraumatic. Extraocular muscles intact, pupils equal and reactive, no scleral icterus. Oropharynx is pink and moist. Neck is supple. Cardiovascular: Regular rhythm. Normal S1 and S2. No murmurs, rubs, or gallops appreciated Pulmonary: Normal respiratory effort. No rhonchi, rales, or wheezing appreciated. Gastrointestinal: Soft, nondistended. Nontender. Positive bowel sounds all 4 quadrants. No guarding. Musculoskeletal: Moves all extremities. Bilateral lower extremity tenderness. Multiple areas of healing wounds from IV drug abuse. Dressing left upper extremity clean, dry, and intact. Central nervous system: AAOx 3 Dermatologic: Skin warm and dry. Assessment and plan: Patient is a 53-year-old male with past medical history significant for attention, diabetes, untreated hepatitis C, tobacco abuse, heroin and cocaine abuse, and seizure disorder that presented to emergency room with bilateral lower extremity pain and worsening left upper extremity pain. 1. Left deltoid abscess. Secondary to IV drug abuse and injecting in area. S/P bedside I&D 09/07/18. Blood cultures with no growth to date. Wound culture final results pending. ID following, recommendations appreciated. Continue vancomycin. Left shoulder xray per radiologist showed cystic degenerative changes seen in bony glenoid. Left upper extremity CT per radiologist showed lateral deltoid abscess. Continue to wean off pain medications. Surgery following, recommendations appreciated. 2D echo per housekeeping/laundry supervisor showed systolic function is mildly to moderately impaired, EF 35-40%, mild to moderate hypokinesis in apical anterior wall, trace tricuspid regurgitation, no pericardial effusion. 2. Bilateral lower extremity pain. Bilateral lower extremity venous dopplers negative for DVT. Continue local wound care for healing wounds. 3. DM2 with hyperglycemia. Continue insulin sliding scale. Continue Humalog 4units AC. Continue Levemir at bedtime. Continue to monitor accuchecks 4. Polysubstance abuse. Patient counseled on cessation. Continue clonidine prn for withdrawal symptoms. 5. History of seizure disorder. Continue home tegretol 6. Tobacco abuse.Counseled on cessation. Continue Nicotine patch 7. GI/DVT prophylaxis. Protonix/Lovenox 8. Patient is a full code. Case was discussed in detail with the patient regarding current diagnosis and treatment plan. All questions answered.
[2018-09-09] MEDS ORDERED: Bacitracin Ointment 30 GM TUBE TOP SCH (18:00)
--- NOTE | 2018-09-09 18:05 | PN ---
DATE: 09/09/2018 SUBJECTIVE: The patient is seen earlier today in 575, bed 2. No fevers and no chills. PHYSICAL EXAMINATION VITAL SIGNS: Temperature is 98, blood pressure is 140/80, respiratory rate of 20, heart rate of 71. HEENT: Unremarkable. NECK: Supple. LUNGS: Decreased breath sounds. HEART: Normal S1, S2. ABDOMEN: Soft, nontender. LABORATORY DATA: Reveals the blood cultures are negative and abscess cultures are gram-positive cocci and nares MRSA is negative. Review of orders reveals the patient to be on vancomycin. ASSESSMENT AND PLAN: A 53-year-old male, seen earlier today with hypertension, seizure, hepatitis C, bipolar, diabetes, admitted with systemic inflammatory response syndrome and sepsis with a left deltoid abscess with gram-positive cocci, on vancomycin. Awaiting for identification and sensitivity of gram-positive cocci. The blood cultures are reported to be negative and the patient is on vancomycin. Creatinine of 0.5 and elevated procalcitonin. The patient does receive the vancomycin at 7:30 in the morning and 7:30 at night. We will order a vancomycin trough level for tomorrow at 6:30, an hour before the morning dose. We will follow with you. Awaiting for identification of gram-positive cocci from the abscess culture. Brennan Kline MD
[2018-09-09] MEDS: Bacitracin Ointment 30 GM TUBE TOP SCH (18:35)
[2018-09-10] MEDS: Pantoprazole 40 mg EC Tab PO SCH (07:02)
[2018-09-10 07:16] LABS: BASO # 0.01 K/mm3 (0.0-2.0); BASO % 0.1 % (0.0-3.0); EOS % 0.2 % (1.5-5.0); GRAN # 6.35 (1.4-6.5); GRAN % 75.9 % (50.0-68.0); HEMOGLOBIN 14.5 g/dL (14.0-18.0); LYMPH # 1.4 (1.2-3.4); LYMPH % 16.4 % (22.0-35.0); MEAN CELL VOLUME 84.1 fl (80.0-105.0); MEAN CORPUSCULAR HEMOGLOBIN 27.8 pg (25.0-35.0); MEAN PLATELET VOLUME 10.2 fl (7.0-11.0); MONO # 0.6 (0.1-0.6); MONO % 7.4 % (1.0-6.0); RBC 5.22 10^6/uL (3.5-6.1); RED CELL DISTRIBUTION WIDTH 13.1 % (11.5-14.5); WHITE BLOOD COUNT 8.4 10^3/uL (4.5-11.0)
[2018-09-10 07:33] LABS: ALB/GLOB RATIO 0.9 (1.1-1.8); ALBUMIN 3.7 g/dL (3.0-4.8); ALT/SGPT 18 U/L (7-56); AST/SGOT 17 U/L (17-59); BLOOD UREA NITROGEN 17 mg/dL (7-21); CALCIUM 8.9 mg/dL (8.4-10.5); GFR NON-AFRICAN AMERICAN > 60
--- NOTE | 2018-09-10 07:40 | PCM.FALL ---
<Vrenon Rodriguezmad - Last Filed: 09/10/18 07:43> Post Fall Progress Note - Post Fall Fall Date: 09/09/18 Fall Time: 17:30 Description of Fall: Pt states that he was attempting to stand up to get deodorant when he stood up quickly and felt lightheaded. Pt states that he then attempted to catch himself before falling, and in the process hit his L shoulder against the bed railing. Pt denies having any LOC or hitting his head. Pt states that he remembers the entire fall and is currently AOx3. He denies any headaches, lightheadedness, dizziness at this time. He denies chest pain, SOB. He admits to L shoulder pain but denies weakness in the L shoulder and denies any numbness, tingling in any extremity. - Post Fall Exam Vital Sign: Temp Pulse Resp BP Pulse Ox 98.8 F 72 20 129/78 98 09/09/18 22:00 09/09/18 14:00 09/09/18 22:00 09/09/18 22:00 09/09/18 22:00 Skull Exam: Negative for: Scalp wound, Scalp hematoma, Scalp depression Eye Exam: Positive for: Pupils equal, Pupils reactive Skin Exam: Positive for: Lacerations (chronic L LE lac, no new lacerations noted on skin exam.). Negative for: Bruising Mouth Exam: Negative for: Tongue bitten, Teeth dislodge Neck Exam: Negative for: Tenderness, Tingling, Weakness Spinal Exam: Negative for: Tenderness, Tingling, Weakness Chest Exam: Negative for: Difficulty breathing, Tenderness in collar bones, Tenderness in ribs Abdomen Exam: Negative for: Tenderness Pelvic Exam: Negative for: Tenderness Arm Exam: Negative for: Deformity, Alteration in range of movement (Pt has norm al ROM and is not exhibiting any pain, though L shoulder is tender to palpation likely 2/2 ID performed earlier in admission.) Leg Exam: Negative for: Alteration in range of movement Impression/Plan: - VSS at this time - Ortho static VS ordered - XR of L shoulder ordered - CT Head was offered but pt refused stating he knows he didnt hit head and does not want to do another CT head. - Neuro checks q2 <Craidad Fuentes - Last Filed: 09/10/18 12:42> Post Fall Progress Note - Post Fall Exam Vital Sign: Temp Pulse Resp BP Pulse Ox 99 F 97 H 20 130/76 100 09/10/18 06:00 09/10/18 06:00 09/10/18 06:00 09/10/18 10:39 09/10/18 06:00 Attending/Attestation - Attestation I have personally seen and examined this patient.: Yes I have fully participated in the care of the patient.: Yes I have reviewed all pertinent clinical information, including history, physical exam and plan: Yes Notes (Text): Patient s/p fall. Refusing head CT. Will follow up left shoulder xray. Vitals stable. Fall precautions
[2018-09-10] MEDS: Insulin Reg-MEDIUM-Coverage SC SCH ×3 (08:30→17:37)
[2018-09-10] MEDS: Insulin Lispro 1 UNITS/0.01 ML SC SCH ×3 (08:31→17:35)
--- NOTE | 2018-09-10 08:56 | RAD ---
Date of service: 09/09/2018 PROCEDURE: Radiographs of the Left Shoulder HISTORY: L Shoulder pain COMPARISON: Comparison is made to the previous study and previous CT dated 09/07/2020 FINDINGS: BONES: No evidence of acute fracture. Again noted are well defined lytic or cystic changes at the left humeral head and in the inferior aspect of the glenoid. JOINTS: Glenohumeral and acromioclavicular joints preserved. Mild osteoarthritis. SOFT TISSUES: Heterogeneous lucency noted in the lateral aspect of the proximal left are likely related to the patient's history of left deltoid abscess. OTHER FINDINGS: None. IMPRESSION: No significant interval changes noted since the prior study as discussed above.
[2018-09-10] MEDS ORDERED: Vancomycin 1.5 GM in Sodium Chloride 0.9% 500 ML IVPB SCH (10:00)
[2018-09-10] MEDS: Bacitracin Ointment 30 GM TUBE TOP SCH ×2 (10:24→17:36)
[2018-09-10] MEDS: Enoxaparin 40 mg Syringe SC SCH (10:25)
--- NOTE | 2018-09-10 10:51 | CP.PCM.PN ---
<Jenny Lopez - Last Filed: 09/10/18 10:47> Subjective - Date & Time of Evaluation Date of Evaluation: 09/10/18 Time of Evaluation: 08:00 - Subjective Subjective: ID Progress Note - Dr Wilson Patient was seen and examined at bedside. Patient has mild complaints of abdominal discomfort and vomiting x1 earlier this am that he noted to be bilious in nature as he has not been eating much on account of decreased appetite. Patient states that he is going through withdrawals as he last used heroin/crack on Monday. As per nursing staff, he did sustain a fall yesterday onto his affected arm. He noted that his left leg ulcer dressings were changed by nursing staff. Patient denied fever, chills, shortness of breath, chest pains, diarrhea, dysuria, hematuria or constipation. He did admit to diffuse abdominal discomfort, nausea, vomiting and pruritus. Objective - Vital Signs/Intake and Output Vital Signs (last 24 hours): Temp Pulse Resp BP Pulse Ox 99 F 97 H 20 130/76 100 09/10/18 06:00 09/10/18 06:00 09/10/18 06:00 09/10/18 10:39 09/10/18 06:00 - Medications Medications: Current Medications Acetaminophen (Tylenol 325mg Tab) 650 mg PO Q6H PRN PRN Reason: Fever >100.4 F Bacitracin (Bacitracin) 0 gm TOP BID [facility] Last Admin: 09/10/18 10:24 Dose: 1 applic Carbamazepine (Tegretol) 200 mg PO DAILY [facility]; Protocol Last Admin: 09/10/18 10:24 Dose: 200 mg Clonidine HCl (Catapres) 0.1 mg PO BID PRN PRN Reason: withdrawal sx only Last Admin: 09/10/18 10:39 Dose: 0.1 mg Dextrose (Dextrose 50% Inj) 0 ml IV STAT PRN; Protocol PRN Reason: Hypoglycemia Protocol Enoxaparin Sodium (Lovenox) 40 mg SC DAILY [facility]; Protocol Last Admin: 09/10/18 10:25 Dose: 40 mg Dextrose (Dextrose 5% In Water 1000 Ml) 1,000 mls @ 0 mls/hr IV .Q0M PRN; Protocol PRN Reason: Hypoglycemia Protocol Vancomycin HCl 1.5 gm/ Sodium (Chloride) 500 mls @ 167 mls/hr IVPB Q12H [facility]; Protocol Last Admin: 09/10/18 10:24 Dose: 167 mls/hr Insulin Detemir (Levemir) 12 unit SC HS [facility] Last Admin: 09/08/18 23:21 Dose: 12 units Insulin Human Lispro (Humalog) 4 units SC AC [facility] Last Admin: 09/10/18 08:31 Dose: 4 unit Insulin Human Regular (Humulin R Med) 0 units SC ACHS [facility]; Protocol Last Admin: 09/10/18 08:30 Dose: 3 units Morphine Sulfate (Morphine) 1 mg IVP Q6H PRN PRN Reason: Pain, severe (8-10) Nicotine (Nicoderm Cq) 1 patch TD DAILY [facility] Last Admin: 09/10/18 10:29 Dose: Not Given Ondansetron HCl (Zofran Inj) 4 mg IVP Q4H PRN PRN Reason: Nausea/Vomiting Last Admin: 09/08/18 10:27 Dose: 4 mg Pantoprazole Sodium (Protonix Ec Tab) 40 mg PO 0600 [facility] Last Admin: 09/10/18 07:02 Dose: 40 mg Vitamin A (Vitamin A & D Oint Ud Foilpak) 1 ea TOP Q2 PRN PRN Reason: Dry mouth - Labs Labs: 09/10/18 07:00 09/10/18 07:00 PT 11.4 SECONDS (9.4-12.5) 09/07/18 02:45 INR 1.00 09/07/18 02:45 APTT 29.2 Seconds (25.1-36.5) 09/07/18 02:45 - Constitutional Appears: Chronically Ill - Head Exam Head Exam: ATRAUMATIC, NORMAL INSPECTION, NORMOCEPHALIC - Eye Exam Eye Exam: EOMI, Normal appearance, PERRL Pupil Exam: NORMAL ACCOMODATION, PERRL - ENT Exam ENT Exam: Mucous Membranes Dry - Respiratory Exam Respiratory Exam: Decreased Breath Sounds - Cardiovascular Exam Cardiovascular Exam: Tachycardia, RRR, +S1, +S2 - GI/Abdominal Exam GI & Abdominal Exam: Soft, Tenderness, Hypoactive Bowel Sounds - Extremities Exam Additional comments: LLE ulcer - Neurological Exam Neurological Exam: Alert, Awake, CN II-XII Intact, Oriented x3 - Psychiatric Exam Psychiatric exam: Normal Affect, Normal Mood Assessment and Plan - Assessment and Plan (Free Text) Assessment: 53 M with a PMHx of HTN, Seizures on tegretol, DM1, Hep C, IVDU, and Bipolar Disorder [place] [facility] [place] [facility] with complaints of chronic leg pain and left upper extremity pain and swelling for 2 weeks admitted with sepsis 2/2 subdeltoid abscess 2/2 IVDU. Left deltoid Abscess 2/2 IVDU Cellulitis LLE Chronic Ulcer Polysubstance abuse DM1 Seizure Disorder HepC Bipolar Disorder without SIRS and hemodynamically stable. CT reviewed, demonstrated 3.5x2.6cm intra subdeltoid abscess, s/p I&D and wound packing, on cx demonstrated gram + cocci, pending sensitivities blood culture negative, negative HIV, elevated procalcitonin, CRP elevated currently on vanc, trough drawn: 5.9 Echo did not demonstrate any vegetations, EF 35-40% will continue to follow <Petros Wilson S - Last Filed: 09/10/18 21:22> Objective - Vital Signs/Intake and Output Vital Signs (last 24 hours): Temp Pulse Resp BP Pulse Ox 99.2 F 84 20 133/97 H 100 09/10/18 14:00 09/10/18 14:00 09/10/18 14:00 09/10/18 14:00 09/10/18 14:00 Intake and Output: 09/10/18 09/11/18 18:59 06:59 Intake Total 240 Balance 240 - Medications Medications: Current Medications Acetaminophen (Tylenol 325mg Tab) 650 mg PO Q6H PRN PRN Reason: Fever >100.4 F Bacitracin (Bacitracin) 0 gm TOP BID [facility] Last Admin: 09/10/18 17:36 Dose: 1 applic Carbamazepine (Tegretol) 200 mg PO DAILY [facility]; Protocol Last Admin: 09/10/18 10:24 Dose: 200 mg Cephalexin Monohydrate (Keflex) 500 mg PO Q6 [facility]; Protocol Last Admin: 09/10/18 17:35 Dose: 500 mg Clonidine HCl (Catapres) 0.1 mg PO BID PRN PRN Reason: withdrawal sx only Last Admin: 09/10/18 10:39 Dose: 0.1 mg Dextrose (Dextrose 50% Inj) 0 ml IV STAT PRN; Protocol PRN Reason: Hypoglycemia Protocol Doxycycline Hyclate (Doryx) 100 mg PO Q12 [facility]; Protocol Last Admin: 09/10/18 17:35 Dose: 100 mg Enoxaparin Sodium (Lovenox) 40 mg SC DAILY [facility]; Protocol Last Admin: 09/10/18 10:25 Dose: 40 mg Dextrose (Dextrose 5% In Water 1000 Ml) 1,000 mls @ 0 mls/hr IV .Q0M PRN; Protocol PRN Reason: Hypoglycemia Protocol Insulin Detemir (Levemir) 12 unit SC HS [facility] Last Admin: 09/08/18 23:21 Dose: 12 units Insulin Human Lispro (Humalog) 4 units SC AC [facility] Last Admin: 09/10/18 17:35 Dose: 4 unit Insulin Human Regular (Humulin R Med) 0 units SC ACHS [facility]; Protocol Last Admin: 09/10/18 17:37 Dose: Not Given Morphine Sulfate (Morphine) 1 mg IVP Q6H PRN PRN Reason: Pain, severe (8-10) Nicotine (Nicoderm Cq) 1 patch TD DAILY [facility] Last Admin: 09/10/18 10:29 Dose: Not Given Ondansetron HCl (Zofran Inj) 4 mg IVP Q4H PRN PRN Reason: Nausea/Vomiting Last Admin: 09/08/18 10:27 Dose: 4 mg Pantoprazole Sodium (Protonix Ec Tab) 40 mg PO 0600 [facility] Last Admin: 09/10/18 07:02 Dose: 40 mg Vitamin A (Vitamin A & D Oint Ud Foilpak) 1 ea TOP Q2 PRN PRN Reason: Dry mouth - Labs Labs: 09/10/18 07:00 09/10/18 07:00 PT 11.4 SECONDS (9.4-12.5) 09/07/18 02:45 INR 1.00 09/07/18 02:45 APTT 29.2 Seconds (25.1-36.5) 09/07/18 02:45 Assessment and Plan - Assessment and Plan (Free Text) Assessment: Infectious diseases Attending Physician Attestation Patient seen and examined, discussed with certified medical aide. I have reviewed the patient's history of present illness, past medical, social, personal and family histories, pertinent physical exam findings, course so far in this hospital admission, pertinent laboratory and imaging results. I agree with the above findings, assessment and plan. In addition, will continue Vancomycin for this patient with left deltoid abscess associated with IVDU, S/P drainage at bedside. Follow up wound cx which is showing gram positive cocci. HIV test is non- reactive
--- NOTE | 2018-09-10 14:34 | CP.PCM.PN ---
<Edilia Pierre - Last Filed: 09/10/18 16:53> Subjective - Date & Time of Evaluation Date of Evaluation: 09/10/18 Time of Evaluation: 07:10 - Subjective Subjective: Internal medicine note for Dr. Dowling Patient seen and examined this am at bedside. NAEO per nursing. Patient states that his left shoulder pain has improved with abx. Patient otherwise denies KENDALL, SOB, CP, abdominal pain. Objective - Vital Signs/Intake and Output Vital Signs (last 24 hours): Temp Pulse Resp BP Pulse Ox 99 F 97 H 20 130/76 100 09/10/18 06:00 09/10/18 06:00 09/10/18 06:00 09/10/18 10:39 09/10/18 06:00 - Medications Medications: Current Medications Acetaminophen (Tylenol 325mg Tab) 650 mg PO Q6H PRN PRN Reason: Fever >100.4 F Bacitracin (Bacitracin) 0 gm TOP BID [facility] Last Admin: 09/10/18 10:24 Dose: 1 applic Carbamazepine (Tegretol) 200 mg PO DAILY [facility]; Protocol Last Admin: 09/10/18 10:24 Dose: 200 mg Clonidine HCl (Catapres) 0.1 mg PO BID PRN PRN Reason: withdrawal sx only Last Admin: 09/10/18 10:39 Dose: 0.1 mg Dextrose (Dextrose 50% Inj) 0 ml IV STAT PRN; Protocol PRN Reason: Hypoglycemia Protocol Enoxaparin Sodium (Lovenox) 40 mg SC DAILY [facility]; Protocol Last Admin: 09/10/18 10:25 Dose: 40 mg Dextrose (Dextrose 5% In Water 1000 Ml) 1,000 mls @ 0 mls/hr IV .Q0M PRN; Protocol PRN Reason: Hypoglycemia Protocol Vancomycin HCl 1.5 gm/ Sodium (Chloride) 500 mls @ 167 mls/hr IVPB Q12H [facility]; Protocol Last Admin: 09/10/18 10:24 Dose: 167 mls/hr Insulin Detemir (Levemir) 12 unit SC HS [facility] Last Admin: 09/08/18 23:21 Dose: 12 units Insulin Human Lispro (Humalog) 4 units SC AC [facility] Last Admin: 09/10/18 12:24 Dose: 4 unit Insulin Human Regular (Humulin R Med) 0 units SC ACHS [facility]; Protocol Last Admin: 09/10/18 12:24 Dose: 1 units Morphine Sulfate (Morphine) 1 mg IVP Q6H PRN PRN Reason: Pain, severe (8-10) Nicotine (Nicoderm Cq) 1 patch TD DAILY [facility] Last Admin: 09/10/18 10:29 Dose: Not Given Ondansetron HCl (Zofran Inj) 4 mg IVP Q4H PRN PRN Reason: Nausea/Vomiting Last Admin: 09/08/18 10:27 Dose: 4 mg Pantoprazole Sodium (Protonix Ec Tab) 40 mg PO 0600 [facility] Last Admin: 09/10/18 07:02 Dose: 40 mg Vitamin A (Vitamin A & D Oint Ud Foilpak) 1 ea TOP Q2 PRN PRN Reason: Dry mouth - Labs Labs: 09/10/18 07:00 09/10/18 07:00 PT 11.4 SECONDS (9.4-12.5) 09/07/18 02:45 INR 1.00 09/07/18 02:45 APTT 29.2 Seconds (25.1-36.5) 09/07/18 02:45 - Constitutional Appears: Well, Non-toxic, No Acute Distress - Head Exam Head Exam: ATRAUMATIC, NORMOCEPHALIC - Eye Exam Eye Exam: EOMI - ENT Exam ENT Exam: Mucous Membranes Moist - Respiratory Exam Respiratory Exam: NORMAL BREATHING PATTERN - Cardiovascular Exam Cardiovascular Exam: REGULAR RHYTHM - GI/Abdominal Exam GI & Abdominal Exam: Soft. absent: Distended, Guarding, Tenderness - Extremities Exam Extremities Exam: absent: Calf Tenderness, Pedal Edema - Neurological Exam Neurological Exam: Alert, Awake, Oriented x3 - Psychiatric Exam Psychiatric exam: Normal Affect, Normal Mood - Skin Skin Exam: Dry, Normal Color, Warm Additional comments: cruciate incision over left deltoid s/p I&D Left medial lower leg 4 cm distal to knee, 3.5cm x 3 cm wound, appears to be healing appropriately Assessment and Plan - Assessment and Plan (Free Text) Assessment: 53 M admitted for Heroin withdrawal and left deltoid abscess Plan: 1. Left Subdeltoid Abscess with Overlying Cellulitis -Likely secondary to IVDA -CT Upper Extremity showed 3.5x2.6cm intra subdeltoid abscess -Bedside I&D performed in ED by surgery team 09/07 -2D Echocardiogram showed EF moderately impaired at 35% -Wound cultures growing gram positive cocci, strep viridans; Blood cultures negative - keflex and doxycycline started -Morphine 1mg IVP Q6 PRN for pain control -Tylenol PRN for fever -Wound Care: 4x4 with tape changed daily -Surgery and ID consulted, all recommendations appreciated 2. ECHO with tricuspid regurgitation and 35-40% - cardiology consulted recs appreciated 3. Bilateral Lower Extremity Pain with LLE Chronic Wound -Bilateral Venous Doppler US negative for DVT's -Morphine as above for pain control -Wound Care referral -Empiric antibiotics as above 4. Unspecified Seizure Disorder -Carbamazepine level: <3 (Low) -Continue home Tegretol 200mg daily -Seizure precautions 5. Unspecified DM -SSI-Medium and Accuchecks ACHS -Levemir 12u HS and Humalog 4u AC -A1c elevated at 14.4 -Carbohydrate Consistent Diet 6. Tobacco Use Disorder -Nicoderm CQ transdermal patch daily 7. Polysubstance Abuse -UDS negative -Alcohol level: <10 -Clonidine 0.1mg PO BID PRN for symptoms of heroin withdrawal -Counseled on cessation provided and will be reinforced daily 8. Suicidal Thoughts - patient indicated today to nursing that he wanted to kill himself - 1:1 sitter placed - psychiatry consulted recs appreciated GI Prophylaxis: Protonix DVT Prophylaxis: Lovenox Code Status: Full Code <Dipika Dowling - Last Filed: 09/13/18 16:15> Objective - Vital Signs/Intake and Output Vital Signs (last 24 hours): Temp Pulse Resp BP Pulse Ox 98 F 77 18 112/89 97 09/12/18 06:00 09/12/18 06:00 09/12/18 06:00 09/12/18 06:00 09/12/18 06:00 - Labs Labs: 09/10/18 07:00 09/10/18 07:00 PT 11.4 SECONDS (9.4-12.5) 09/07/18 02:45 INR 1.00 09/07/18 02:45 APTT 29.2 Seconds (25.1-36.5) 09/07/18 02:45 Attending/Attestation - Attestation I have personally seen and examined this patient.: Yes I have fully participated in the care of the patient.: Yes I have reviewed all pertinent clinical information, including history, physical exam and plan: Yes Notes (Text): 09/13/18 16:10 attending note; Patient seen and examined with resident. Patient is a 53-year-old male with past medical history significant for attention, diabetes, untreated hepatitis C, tobacco abuse, heroin and cocaine abuse, and seizure disorder that presented to emergency room with bilateral lower extremity pain and worsening left upper extremity pain. 1. Left deltoid abscess. Secondary to IV drug abuse and injecting in area. S/P bedside I&D 09/07/18. Blood cultures with no growth to date. Wound culture final results pending. Continue vancomycin. Left shoulder xray showed cystic degenerative changes seen in bony glenoid. Left upper extremity CT showed lateral deltoid abscess. 2D echo showed systolic function is mildly to moderately impaired, EF 35-40%, mild to moderate hypokinesis in apical anterior wall, trace tricuspid regurgitation, no pericardial effusion. 2. Bilateral lower extremity pain. Bilateral lower extremity venous dopplers negative for DVT. Continue local wound care for healing wounds. 3. DM2 with hyperglycemia. Continue insulin sliding scale. Continue Humalog 4units AC. Continue Levemir at bedtime. Continue to monitor accuchecks 4. Polysubstance abuse. Patient counseled on cessation. Continue clonidine prn for withdrawal symptoms. 5. History of seizure disorder. Continue home tegretol 6. Tobacco abuse.Counseled on cessation. Continue Nicotine patch 7. GI/DVT prophylaxis. 8. suicidal ideation; patient is placed on one-to-one observation. Psychiatric Evaluation requested. general house worker evaluation requested for drug rehabilitation placement. Case was discussed in detail with the patient regarding current diagnosis and treatment plan. Prognosis is poor because of continuous drug abuse and noncompliance with follow-up. Upon discharge the patient will follow up with PMD Dr. Hargrove.
--- NOTE | 2018-09-10 16:54 | CP.PCM.PCO ---
Addendum Addendum: I spoke with Dr. Dowling and reviewed staff notes. This provider visited patient within 20 minutes of psychiatric consultation request. Apparently patient verbalized that he was suicidal and wanted to speak to a psychiatrist. I introduced myself and reason for visit however patient refused to speak with me despite multiple attempts in getting him to cooperate. Patient was awake however his eyes remained closed. Patient should continue to be on 1:1 and psychiatry will re-attempt interview in the AM. 09/10/18 16:50
[2018-09-10] MEDS: Insulin Detemir 100 units/ml Vial (Levemir) SC SCH (22:01)
[2018-09-11] MEDS: Pantoprazole 40 mg EC Tab PO SCH (05:31)
[2018-09-11] MEDS: Insulin Lispro 1 UNITS/0.01 ML SC SCH ×3 (08:33→17:30)
[2018-09-11] MEDS: Insulin Reg-MEDIUM-Coverage SC SCH ×4 (08:34→21:23)
[2018-09-11] MEDS: Enoxaparin 40 mg Syringe SC SCH (09:32)
--- NOTE | 2018-09-11 09:52 | CP.PCM.PN ---
<Jenny Lopez - Last Filed: 09/11/18 10:35> Subjective - Date & Time of Evaluation Date of Evaluation: 09/11/18 Time of Evaluation: 09:45 - Subjective Subjective: ID Progress Note - Dr Wilson Patient was seen and examined at bedside. Patient is on a 1:1 on account of suicidal ideation. He still has mild complaints of abdominal discomfort and nausea but has not had an episode of emesis today. No He noted that his left leg ulcer dressings were changed by nursing staff. Patient denied fever, chills, shortness of breath, chest pains, diarrhea, dysuria, hematuria or constipation. He did admit to diffuse abdominal discomfort, nausea, and pruritus. Objective - Vital Signs/Intake and Output Vital Signs (last 24 hours): Temp Pulse Resp BP Pulse Ox 98.4 F 81 20 129/90 100 09/11/18 06:00 09/11/18 09:33 09/11/18 06:00 09/11/18 09:33 09/11/18 06:00 - Medications Medications: Current Medications Acetaminophen (Tylenol 325mg Tab) 650 mg PO Q6H PRN PRN Reason: Fever >100.4 F Bacitracin (Bacitracin) 0 gm TOP BID BRIANDA Last Admin: 09/10/18 17:36 Dose: 1 applic Carbamazepine (Tegretol) 200 mg PO DAILY BRIANDA; Protocol Last Admin: 09/11/18 09:31 Dose: 200 mg Cephalexin Monohydrate (Keflex) 500 mg PO Q6 BRIANDA; Protocol Last Admin: 09/11/18 05:32 Dose: 500 mg Clonidine HCl (Catapres) 0.1 mg PO BID PRN PRN Reason: withdrawal sx only Last Admin: 09/11/18 09:33 Dose: 0.1 mg Dextrose (Dextrose 50% Inj) 0 ml IV STAT PRN; Protocol PRN Reason: Hypoglycemia Protocol Doxycycline Hyclate (Doryx) 100 mg PO Q12 BRIANDA; Protocol Last Admin: 09/11/18 09:31 Dose: 100 mg Enoxaparin Sodium (Lovenox) 40 mg SC DAILY BRIANDA; Protocol Last Admin: 09/11/18 09:32 Dose: 40 mg Dextrose (Dextrose 5% In Water 1000 Ml) 1,000 mls @ 0 mls/hr IV .Q0M PRN; Protocol PRN Reason: Hypoglycemia Protocol Insulin Detemir (Levemir) 12 unit SC HS [facility] Last Admin: 09/10/18 22:01 Dose: 12 units Insulin Human Lispro (Humalog) 4 units SC AC [facility] Last Admin: 09/11/18 08:33 Dose: 4 unit Insulin Human Regular (Humulin R Med) 0 units SC ACHS [facility]; Protocol Last Admin: 09/11/18 08:34 Dose: 1 units Morphine Sulfate (Morphine) 1 mg IVP Q6H PRN PRN Reason: Pain, severe (8-10) Nicotine (Nicoderm Cq) 1 patch TD DAILY [facility] Last Admin: 09/11/18 09:35 Dose: Not Given Ondansetron HCl (Zofran Inj) 4 mg IVP Q4H PRN PRN Reason: Nausea/Vomiting Last Admin: 09/08/18 10:27 Dose: 4 mg Pantoprazole Sodium (Protonix Ec Tab) 40 mg PO 0600 [facility] Last Admin: 09/11/18 05:31 Dose: 40 mg Vitamin A (Vitamin A & D Oint Ud Foilpak) 1 ea TOP Q2 PRN PRN Reason: Dry mouth - Labs Labs: 09/10/18 07:00 09/10/18 07:00 PT 11.4 SECONDS (9.4-12.5) 09/07/18 02:45 INR 1.00 09/07/18 02:45 APTT 29.2 Seconds (25.1-36.5) 09/07/18 02:45 - Constitutional Appears: Chronically Ill - Head Exam Head Exam: ATRAUMATIC, NORMAL INSPECTION, NORMOCEPHALIC - Eye Exam Eye Exam: EOMI, Normal appearance, PERRL Pupil Exam: NORMAL ACCOMODATION, PERRL - ENT Exam ENT Exam: Mucous Membranes Dry - Respiratory Exam Respiratory Exam: Decreased Breath Sounds - Cardiovascular Exam Cardiovascular Exam: REGULAR RHYTHM, +S1, +S2. absent: Murmur - GI/Abdominal Exam GI & Abdominal Exam: Soft, Tenderness, Normal Bowel Sounds - Extremities Exam Additional comments: LLE ulcer - Neurological Exam Neurological Exam: Alert, Awake, CN II-XII Intact, Oriented x3 - Psychiatric Exam Psychiatric exam: Anxious - Skin Skin Exam: Dry, Normal Color, Warm Assessment and Plan - Assessment and Plan (Free Text) Assessment: 53 M with a PMHx of HTN, Seizures on tegretol, DM1, Hep C, IVDU, and Bipolar Disorder presents to the [facility] ED with complaints of chronic leg pain and left upper extremity pain and swelling for 2 weeks admitted with sepsis 2/2 subdeltoid abscess 2/2 IVDU. Left deltoid Abscess 2/2 IVDU Cellulitis LLE Chronic Ulcer Polysubstance abuse Suicidal Ideation DM1 Seizure Disorder HepC Bipolar Disorder without SIRS and hemodynamically stable. CT reviewed, demonstrated 3.5x2.6cm intra subdeltoid abscess, s/p I&D and wound packing, on cx demonstrated gram + cocci,Wound cultures growing gram positive cocci, strep viridans; Blood cultures negative keflex and doxycycline, vancomycin blood culture negative, negative HIV, elevated procalcitonin, CRP elevated Echo did not demonstrate any vegetations, EF 35-40% Wound Care: 4x4 with tape changed daily will continue to follow <Petros Wilson - Last Filed: 09/11/18 23:03> Objective - Vital Signs/Intake and Output Vital Signs (last 24 hours): Temp Pulse Resp BP Pulse Ox 98 F 80 18 127/82 98 09/11/18 22:12 09/11/18 22:12 09/11/18 22:12 09/11/18 22:12 09/11/18 22:12 Intake and Output: 09/11/18 09/12/18 18:59 06:59 Intake Total 120 Output Total 100 Balance 20 - Medications Medications: Current Medications Acetaminophen (Tylenol 325mg Tab) 650 mg PO Q6H PRN PRN Reason: Fever >100.4 F Bacitracin (Bacitracin) 0 gm TOP BID BRIANDA Last Admin: 09/11/18 19:00 Dose: Not Given Carbamazepine (Tegretol) 200 mg PO DAILY BRIANDA; Protocol Last Admin: 09/11/18 09:31 Dose: 200 mg Cephalexin Monohydrate (Keflex) 500 mg PO Q6 BRIANDA; Protocol Last Admin: 09/11/18 19:00 Dose: Not Given Clonidine HCl (Catapres) 0.1 mg PO BID PRN PRN Reason: withdrawal sx only Last Admin: 09/11/18 21:15 Dose: 0.1 mg Dextrose (Dextrose 50% Inj) 0 ml IV STAT PRN; Protocol PRN Reason: Hypoglycemia Protocol Doxycycline Hyclate (Doryx) 100 mg PO Q12 BRIANDA; Protocol Last Admin: 09/11/18 21:15 Dose: 100 mg Enoxaparin Sodium (Lovenox) 40 mg SC DAILY [facility]; Protocol Last Admin: 09/11/18 09:32 Dose: 40 mg Dextrose (Dextrose 5% In Water 1000 Ml) 1,000 mls @ 0 mls/hr IV .Q0M PRN; Protocol PRN Reason: Hypoglycemia Protocol Insulin Detemir (Levemir) 12 unit SC HS [facility] Last Admin: 09/11/18 21:22 Dose: 12 units Insulin Human Lispro (Humalog) 4 units SC AC [facility] Last Admin: 09/11/18 17:30 Dose: Not Given Insulin Human Regular (Humulin R Med) 0 units SC ACHS [facility]; Protocol Last Admin: 09/11/18 21:23 Dose: Not Given Morphine Sulfate (Morphine) 1 mg IVP Q6H PRN PRN Reason: Pain, severe (8-10) Nicotine (Nicoderm Cq) 1 patch TD DAILY [facility] Last Admin: 09/11/18 09:35 Dose: Not Given Ondansetron HCl (Zofran Inj) 4 mg IVP Q4H PRN PRN Reason: Nausea/Vomiting Last Admin: 09/08/18 10:27 Dose: 4 mg Pantoprazole Sodium (Protonix Ec Tab) 40 mg PO 0600 [facility] Last Admin: 09/11/18 05:31 Dose: 40 mg Trazodone HCl (Desyrel) 50 mg PO [facility] Last Admin: 09/11/18 21:15 Dose: 50 mg Vitamin A (Vitamin A & D Oint Ud Foilpak) 1 ea TOP Q2 PRN PRN Reason: Dry mouth - Labs Labs: 09/10/18 07:00 09/10/18 07:00 PT 11.4 SECONDS (9.4-12.5) 09/07/18 02:45 INR 1.00 09/07/18 02:45 APTT 29.2 Seconds (25.1-36.5) 09/07/18 02:45 Assessment and Plan - Assessment and Plan (Free Text) Assessment: Infectious diseases Attending Physician Attestation Patient seen and examined, discussed with medical sociologist. I have reviewed the patient's history of present illness, past medical, social, personal and family histories, pertinent physical exam findings, course so far in this hospital admission, pertinent laboratory and imaging results. I agree with the above findings, assessment and plan. In addition, will continue Vancomycin for deltoid abscess growing Strep viridans, S/P I and D. Will need total 7-10 days of antibiotics. May switch to PO antibiotics when ready to be discharged.
[2018-09-11] MEDS ORDERED: Vancomycin 1gm in NS 250ml 1 GM/250 ML BAG IVPB SCH (10:45)
[2018-09-11] MEDS: Bacitracin Ointment 30 GM TUBE TOP SCH ×2 (11:00→19:00)
--- NOTE | 2018-09-11 14:38 | CON ---
DATE: 09/11/2018 HISTORY OF PRESENT ILLNESS: The patient is a 53-year-old male, who presents complaining of lower extremity pain and left upper extremity pain over a month. The patient was found to have an open wound that never healed. PAST MEDICAL HISTORY: The patient's past medical history includes hypertension, hyperlipidemia, heroin abuse, and documented hepatitis C. The patient currently denies chest pain, denies shortness of breath. SOCIAL HISTORY: He denies smoking. REVIEW OF SYSTEMS: Fourteen-point review of systems was unrevealing; the patient was not willing to give a full history. PHYSICAL EXAMINATION: VITAL SIGNS: Blood pressure is 129/90 and the heart rate is in the 80s. NECK: Negative JVD. LUNGS: Without rales. HEART: Heart rate S1, S2. EXTREMITIES: Bandage in the lower extremity. LABORATORY DATA: No troponin was done. BUN and creatinine, unremarkable. Glucose 236. Hemoglobin is 14.5 with a normal white count. DIAGNOSTIC DATA: EKG reveals normal sinus rhythm with LVH voltage criteria. Echocardiogram reveals an ejection fraction of 32%. There is no pulmonary hypertension. IMPRESSION: 1. Dilated cardiomyopathy. 2. Coronary artery disease. 3. Wound in the lower extremities. 4. Diabetes mellitus. 5. Hypertension. 6. History of heroin abuse. PLAN: Given these findings, the patient currently has no symptoms from his dilated cardiomyopathy. The treatment should be directed as his wound healing. If the patient becomes compliant with medications and is willing, we will consider doing an outpatient stress test to rule out coronary artery disease as a cause of his cardiomyopathy. Hill Sheridan MD
--- NOTE | 2018-09-11 16:13 | CP.PCM.PN ---
<Ankit Rodriguez - Last Filed: 09/11/18 23:47> Subjective - Date & Time of Evaluation Date of Evaluation: 09/11/18 Time of Evaluation: 16:08 - Subjective Subjective: Ankit Rodriguez, PGY-1 Medicine Progress Note for Dr. Dowling: Pt was seen and examined this AM at bedside. Pt is currently on 1:1 due to SI and states that he continues to have SI because he feels as if he will be d/tiffanie without any help or rehab services. Pt was explained that he would not be d/tiffanie without being able to follow up for help if he so desired. Pt continued to admit to SI even after multiple attempts to explain that this situation would not arise. Other than that pt also admits to 2x/ vomiting non-bloody nonbilious emesis, but denies any nausea and vomiting at this time. Psych will re-interview pt today, as he was non-cooperative yesterday. Objective - Vital Signs/Intake and Output Vital Signs (last 24 hours): Temp Pulse Resp BP Pulse Ox 98.4 F 81 20 129/90 100 09/11/18 06:00 09/11/18 09:33 09/11/18 06:00 09/11/18 09:33 09/11/18 06:00 - Medications Medications: Current Medications Acetaminophen (Tylenol 325mg Tab) 650 mg PO Q6H PRN PRN Reason: Fever >100.4 F Bacitracin (Bacitracin) 0 gm TOP BID BRIANDA Last Admin: 09/10/18 17:36 Dose: 1 applic Carbamazepine (Tegretol) 200 mg PO DAILY [facility]RIANDA; Protocol Last Admin: 09/11/18 09:31 Dose: 200 mg Cephalexin Monohydrate (Keflex) 500 mg PO Q6 BRIANDA; Protocol Last Admin: 09/11/18 13:00 Dose: Not Given Clonidine HCl (Catapres) 0.1 mg PO BID PRN PRN Reason: withdrawal sx only Last Admin: 09/11/18 09:33 Dose: 0.1 mg Dextrose (Dextrose 50% Inj) 0 ml IV STAT PRN; Protocol PRN Reason: Hypoglycemia Protocol Doxycycline Hyclate (Doryx) 100 mg PO Q12 BRIANDA; Protocol Last Admin: 09/11/18 09:31 Dose: 100 mg Enoxaparin Sodium (Lovenox) 40 mg SC DAILY [facility]; Protocol Last Admin: 09/11/18 09:32 Dose: 40 mg Dextrose (Dextrose 5% In Water 1000 Ml) 1,000 mls @ 0 mls/hr IV .Q0M PRN; Protocol PRN Reason: Hypoglycemia Protocol Insulin Detemir (Levemir) 12 unit SC HS [facility] Last Admin: 09/10/18 22:01 Dose: 12 units Insulin Human Lispro (Humalog) 4 units SC AC [facility] Last Admin: 09/11/18 12:30 Dose: Not Given Insulin Human Regular (Humulin R Med) 0 units SC ACHS [facility]; Protocol Last Admin: 09/11/18 12:30 Dose: Not Given Morphine Sulfate (Morphine) 1 mg IVP Q6H PRN PRN Reason: Pain, severe (8-10) Nicotine (Nicoderm Cq) 1 patch TD DAILY [facility] Last Admin: 09/11/18 09:35 Dose: Not Given Ondansetron HCl (Zofran Inj) 4 mg IVP Q4H PRN PRN Reason: Nausea/Vomiting Last Admin: 09/08/18 10:27 Dose: 4 mg Pantoprazole Sodium (Protonix Ec Tab) 40 mg PO 0600 [facility] Last Admin: 09/11/18 05:31 Dose: 40 mg Vitamin A (Vitamin A & D Oint Ud Foilpak) 1 ea TOP Q2 PRN PRN Reason: Dry mouth - Labs Labs: 09/10/18 07:00 09/10/18 07:00 PT 11.4 SECONDS (9.4-12.5) 09/07/18 02:45 INR 1.00 09/07/18 02:45 APTT 29.2 Seconds (25.1-36.5) 09/07/18 02:45 Assessment and Plan - Assessment and Plan (Free Text) Assessment: Pt is a 53 yo M with a pmhx of HTN, unspecified DM, untreated Hepatitis C, Tobacco Use Disorder, Polysubstance Abuse (Heroin and Cocaine) and unspecified Seizure Disorder who presents with two weeks of acutely worsening chronic RUE pain as well as acutely worsening chronic bilateral lower extremity pain. Plan: 1. Left Subdeltoid Abscess with Overlying Cellulitis - Likely secondary to IVDA - CT UE: 3.5x2.6cm intra subdeltoid abscess - Bedside I&D performed in ED by surgery team 12/07 - 2D Echocardiogram showed EF moderately impaired at 35% - Wound cultures growing gram positive cocci; Blood cultures negative - Continue empiric IV Vancomycin (Day 4) - Tapered Morphine 1mg IVP Q6 PRN for pain control - Tylenol PRN for fever - Wound Care: 4x4 with tape changed daily - Surgery and ID consulted, all recommendations appreciated 2. Bilateral Lower Extremity Pain with LLE Chronic Wound - Bilateral Venous Doppler US negative for DVT's - Morphine as above for pain control - Wound Care referral - Empiric antibiotics as above 3. Unspecified Seizure Disorder - Carbamazepine level: <3 (Low) - Continue home Tegretol 200mg daily - Seizure precautions 4. Unspecified DM - SSI-Medium and Accuchecks ACHS - Levemir 12u HS and Humalog 4u AC - A1c elevated at 14.4 - Carbohydrate Consistent Diet 5. Tobacco Use Disorder - Nicoderm CQ transdermal patch daily 6. Polysubstance Abuse - UDS negative - Alcohol level: <10 - Clonidine 0.1mg PO BID PRN for symptoms of heroin withdrawal - Counseled on cessation provided and will be reinforced daily 7. Suicidal Ideation: - 1:1 sitter placed - psychiatry - Will re-interview the pt later today GI Prophylaxis: Protonix DVT Prophylaxis: Lovenox Code Status: Full Code Patient seen and case discussed with attending, Dr. Nitesh Rodriguez, PGY-1 <Dipika Dowling - Last Filed: 09/13/18 16:19> Objective - Vital Signs/Intake and Output Vital Signs (last 24 hours): Temp Pulse Resp BP Pulse Ox 98 F 77 18 112/89 97 09/12/18 06:00 09/12/18 06:00 09/12/18 06:00 09/12/18 06:00 09/12/18 06:00 - Labs Labs: 09/10/18 07:00 09/10/18 07:00 PT 11.4 SECONDS (9.4-12.5) 09/07/18 02:45 INR 1.00 09/07/18 02:45 APTT 29.2 Seconds (25.1-36.5) 09/07/18 02:45 Attending/Attestation - Attestation I have personally seen and examined this patient.: Yes I have fully participated in the care of the patient.: Yes I have reviewed all pertinent clinical information, including history, physical exam and plan: Yes Notes (Text): 09/13/18 16:15 attending note; Patient seen and examined with resident. Patient is a 53-year-old male with past medical history significant for attention, diabetes, untreated hepatitis C, tobacco abuse, heroin and cocaine abuse, and seizure disorder that presented to emergency room with bilateral lower extremity pain and worsening left upper extremity pain. 1. Left deltoid abscess. Secondary to IV drug abuse and injecting in area. S/P bedside I&D 09/07/18. Blood cultures with no growth to date. Wound culture is positive for staph aureus and strep viridans. started on Keflex and doxycycline. Left shoulder xray showed cystic degenerative changes seen in bony glenoid. Left upper extremity CT showed lateral deltoid abscess. 2D echo showed systolic function is mildly to moderately impaired, EF 35-40%, mild to moderate hypokinesis in apical anterior wall, trace tricuspid regurgitation, no pericardial effusion. 2. Bilateral lower extremity pain. Bilateral lower extremity venous dopplers negative for DVT. Continue local wound care for healing wounds. 3. DM2 with hyperglycemia. Continue insulin sliding scale. Continue Humalog 4units AC. Continue Levemir at bedtime. Continue to monitor accuchecks 4. Polysubstance abuse. Patient counseled on cessation. Continue clonidine prn for withdrawal symptoms. 5. History of seizure disorder. Continue home tegretol 6. Tobacco abuse.Counseled on cessation. Continue Nicotine patch 7. GI/DVT prophylaxis. 8. Mood disorder/of substance abuse disorder. Psychiatric Evaluation appreciated. Advised drug rehabilitation placement. Currently no suicidal ideation. One-to-one discontinued. criminal justice social worker evaluation appreciated for drug rehabilitation placement. Case was discussed in detail with the patient regarding current diagnosis and treatment plan. Prognosis is poor because of continuous drug abuse and noncompliance with follow-up. Upon discharge the patient will follow up with PMD Dr. Hargrove.
--- NOTE | 2018-09-11 19:29 | CON ---
DATE: 09/11/2018 HISTORY OF PRESENT ILLNESS: In short, the patient is a 53-year-old male, polysubstance abuse and dependence, multiple medical issues, hypertension, dyslipidemia, diabetes, seizure disorder, and hepatitis C. The patient was admitted on the medical site for chronic leg pain and upper arm pain for over a month. The patient was found to have open wounds on his legs, and the patient required medical attention. Psych consult was called for evaluation of mood symptoms as well as possible suicidal ideations. Of note, the patient drove himself by bicycle status post using heroin, looking for help, which is by definition is not suicidal. The patient was seen and examined today. The patient presented to be somewhat withdrawn, disengaged. Yesterday, the patient refused to talk to Dr. Gordon, even though that the patient himself requested to see psychiatrist. The patient was providing inconsistent stories. The patient reported that he is feeling depressed, and he is afraid to be discharged because he is afraid that he will relapse on drugs and will be . The patient denied any thoughts of killing himself or intent to do so. The patient reported no voices, no seeing things. The patient reported that he fills medications in the pharmacies, but multiple pharmacies were contacted, no record was found for him. The patient reported that he tried to kill himself in the past by jumping in front of the train at the age of 13 and has strong family history of substance abuse. PHYSICAL EXAMINATION: VITAL SIGNS: Seemed to be stable. Temperature 98.4, pulse is 81, blood pressure 129/90, respirations 26 and oxygen saturation is 100. MEDICATIONS: Reviewed. The patient is on bacitracin, Tylenol, Tegretol, Keflex, Catapres, doxycycline, Lovenox, Levemir, Humalog, Nicoderm, Zofran, Protonix, vitamin A. LABORATORY DATA: Labs reviewed. Toxicology reviewed. The patient is negative for any substances. MICROBIOLOGY DATA: Abscess culture, coagulase-negative staphylococcus and streptococcus. Previous record was also reviewed. The patient was seen by Dr. Yoo in the past, most recent was in 2015. The patient was on Celexa 10 mg for depression, Topamax, Toprol. The patient was not on any psychotropic medications. The patient complained of insomnia. This commercial lines underwriter will implement trazodone for depression as well as for insomnia. MENTAL STATUS EXAMINATION: The patient presented to be alert and oriented, somewhat disengaged, poor eye contact. Speech was underproductive. Thought process concrete. Thought content, the patient reported conditional suicidal ideation, if he will be not accepted to inpatient rehab, he is afraid that he is going to kill himself with the drugs. Insight and judgment seemed to be limited. Impulses are well controlled. IMPRESSION AND PLAN: Continue current management. Continue current medication. Trazodone was started. This commercial lines underwriter had a prolonged conversation with [employer]. Inpatient rehab recommended. We will follow up and advise accordingly. The patient does not need to be on one-to-one. The patient contracted for safety. Thank you very much for letting me participate in care of your patient. Mayra Awan MD
[2018-09-11] MEDS: Insulin Detemir 100 units/ml Vial (Levemir) SC SCH ×2 (21:21→21:22)
[2018-09-11 22:13] VITALS: RESP 18; TEMP 98
[2018-09-12] MEDS: Pantoprazole 40 mg EC Tab PO SCH (05:22)
[2018-09-12 08:02] VITALS: BP 112/89; PULSE 77; O2SAT 97
[2018-09-12] MEDS: Insulin Lispro 1 UNITS/0.01 ML SC SCH ×2 (08:35→12:13)
[2018-09-12] MEDS: Insulin Reg-MEDIUM-Coverage SC SCH ×2 (08:36→12:12)
[2018-09-12] MEDS ORDERED: Tuberculin 5 Units/0.1 ml Inj ID ONE (10:08)
--- NOTE | 2018-09-12 10:58 | PN ---
DATE: 09/12/2018 SUBJECTIVE: The patient was followed up today. The patient complained of insomnia and depressed mood, but adamantly denied any thoughts of killing himself or others. The patient denied any psychotic symptoms. The patient reported that he started to have withdrawal symptoms, but of note toxicology was negative for any substances prior admission. The patient said last time he used drugs was last 3 days ago. Vital signs: Seems to be stable. There is no physical signs of any withdrawals. The patient complained of insomnia as well as depressed mood. As per collateral information from the nursing staff, the patient is not aggressive, not agitated. Has fair appetite, but did not sleep. OBJECTIVE: Vital signs are stable. LABORATORY DATA: Reviewed. Most recent was from yesterday. MENTAL STATUS EXAMINATION: The patient appears to be somewhat drowsy, intermittent eye contact. Mood described as depressed, I need to have help affect was constricted at times tearful. Thought content, the patient denied visual, auditory, tactile hallucinations. Denied thoughts of harming himself, denied paranoia. The patient does not present to be psychotic. Insight and judgment seems to be improving. Impulses are well controlled. IMPRESSION: Rule out mood disorder, substance-induced polysubstance abuse and dependence, history of major depressive disorder. PLAN: Trazodone was increased to 100 mg. We will implement Vistaril as needed for anxiety. Ceo & Founder involved, the patient be referred for inpatient rehabilitation. We will follow up and advise accordingly. Thank you very much for letting me participate in care of your patient. Should you have any questions give me a call back. The patient pose no imminent danger to self or others. Mayra Awan MD
--- NOTE | 2018-09-12 10:59 | CP.PCM.PN ---
<Jenny Lopez - Last Filed: 09/12/18 11:09> Subjective - Date & Time of Evaluation Date of Evaluation: 09/12/18 Time of Evaluation: 10:00 - Subjective Subjective: ID Progress Note - Dr. Wilson Patient seen and examined at bedside. Patient states he has been restless and has had trouble sleeping last night. He would like to have his arm dressing changed. No acute or adverse events overnight as per nursing staff. Pt denied fever, chills, shortness of breath, chest pains, abdominal pains, nausea, vomiting, diarrhea, or dysuria. Objective - Vital Signs/Intake and Output Vital Signs (last 24 hours): Temp Pulse Resp BP Pulse Ox 98 F 77 18 112/89 97 09/12/18 06:00 09/12/18 06:00 09/12/18 06:00 09/12/18 06:00 09/12/18 06:00 Intake and Output: 09/12/18 09/12/18 06:59 18:59 Intake Total 120 Output Total 100 Balance 20 - Medications Medications: Current Medications Acetaminophen (Tylenol 325mg Tab) 650 mg PO Q6H PRN PRN Reason: Fever >100.4 F Bacitracin (Bacitracin) 0 gm TOP BID BRIANDA Last Admin: 09/11/18 19:00 Dose: Not Given Carbamazepine (Tegretol) 200 mg PO DAILY BRIANDA; Protocol Last Admin: 09/11/18 09:31 Dose: 200 mg Cephalexin Monohydrate (Keflex) 500 mg PO Q6 BRIANDA; Protocol Last Admin: 09/12/18 08:36 Dose: 500 mg Clonidine HCl (Catapres) 0.1 mg PO BID PRN PRN Reason: withdrawal sx only Last Admin: 09/11/18 21:15 Dose: 0.1 mg Dextrose (Dextrose 50% Inj) 0 ml IV STAT PRN; Protocol PRN Reason: Hypoglycemia Protocol Doxycycline Hyclate (Doryx) 100 mg PO Q12 BRIANDA; Protocol Last Admin: 09/11/18 21:15 Dose: 100 mg Enoxaparin Sodium (Lovenox) 40 mg SC DAILY BRIANDA; Protocol Last Admin: 09/11/18 09:32 Dose: 40 mg Hydroxyzine Pamoate (Vistaril) 50 mg PO Q8 PRN; Protocol PRN Reason: anxiety/insomnia Dextrose (Dextrose 5% In Water 1000 Ml) 1,000 mls @ 0 mls/hr IV .Q0M PRN; Protocol PRN Reason: Hypoglycemia Protocol Insulin Detemir (Levemir) 12 unit SC HS [facility] Last Admin: 09/11/18 21:22 Dose: 12 units Insulin Human Lispro (Humalog) 4 units SC AC [facility] Last Admin: 09/12/18 08:35 Dose: 4 unit Insulin Human Regular (Humulin R Med) 0 units SC ACHS [facility]; Protocol Last Admin: 09/12/18 08:36 Dose: 1 units Morphine Sulfate (Morphine) 1 mg IVP Q6H PRN PRN Reason: Pain, severe (8-10) Nicotine (Nicoderm Cq) 1 patch TD DAILY [facility] Last Admin: 09/11/18 09:35 Dose: Not Given Ondansetron HCl (Zofran Inj) 4 mg IVP Q4H PRN PRN Reason: Nausea/Vomiting Last Admin: 09/08/18 10:27 Dose: 4 mg Pantoprazole Sodium (Protonix Ec Tab) 40 mg PO 0600 [facility] Last Admin: 09/12/18 05:22 Dose: 40 mg Trazodone HCl (Desyrel) 100 mg PO [facility] Vitamin A (Vitamin A & D Oint Ud Foilpak) 1 ea TOP Q2 PRN PRN Reason: Dry mouth - Labs Labs: 09/10/18 07:00 09/10/18 07:00 PT 11.4 SECONDS (9.4-12.5) 09/07/18 02:45 INR 1.00 09/07/18 02:45 APTT 29.2 Seconds (25.1-36.5) 09/07/18 02:45 - Constitutional Appears: No Acute Distress - Head Exam Head Exam: ATRAUMATIC, NORMAL INSPECTION, NORMOCEPHALIC - Eye Exam Eye Exam: EOMI, Normal appearance, PERRL Pupil Exam: NORMAL ACCOMODATION, PERRL - ENT Exam ENT Exam: Mucous Membranes Moist, Normal Exam - Respiratory Exam Respiratory Exam: Clear to Ausculation Bilateral, NORMAL BREATHING PATTERN - Cardiovascular Exam Cardiovascular Exam: REGULAR RHYTHM, +S1, +S2. absent: Murmur - GI/Abdominal Exam GI & Abdominal Exam: Soft, Hypoactive Bowel Sounds. absent: Tenderness - Extremities Exam Additional comments: LLE ulcer - Neurological Exam Neurological Exam: Alert, Awake, CN II-XII Intact, Normal Gait, Oriented x3 - Psychiatric Exam Psychiatric exam: Normal Affect, Normal Mood - Skin Skin Exam: Dry. absent: Rash Additional comments: Left deltoid CDI, LLE ulcer Assessment and Plan - Assessment and Plan (Free Text) Assessment: 53 M with a PMHx of HTN, Seizures on tegretol, DM1, Hep C, IVDU, and Bipolar Disorder [place] [facility] with complaints of chronic leg pain and left upper extremity pain and swelling for 2 weeks admitted with sepsis 2/2 subdeltoid abscess 2/2 IVDU. Left deltoid Abscess 2/2 IVDU Cellulitis LLE Chronic Ulcer Polysubstance abuse Suicidal Ideation DM1 Seizure Disorder HepC Bipolar Disorder without SIRS and hemodynamically stable. CT reviewed, demonstrated 3.5x2.6cm intra subdeltoid abscess, s/p I&D and wound packing, on cx demonstrated gram + cocci,Wound cultures growing gram positive cocci, strep viridans; Blood cultures negative keflex and doxycycline, no IV access - vancomycin if able to gain access blood culture negative, negative HIV, elevated procalcitonin, CRP elevated Echo did not demonstrate any vegetations, EF 35-40% Wound Care: 4x4 with tape changed daily will continue to follow <Petros Wilson - Last Filed: 09/12/18 13:36> Objective - Vital Signs/Intake and Output Vital Signs (last 24 hours): Temp Pulse Resp BP Pulse Ox 98 F 77 18 112/89 97 09/12/18 06:00 09/12/18 06:00 09/12/18 06:00 09/12/18 06:00 09/12/18 06:00 Intake and Output: 09/12/18 09/12/18 06:59 18:59 Intake Total 120 Output Total 100 Balance 20 - Labs Labs: 09/10/18 07:00 09/10/18 07:00 PT 11.4 SECONDS (9.4-12.5) 09/07/18 02:45 INR 1.00 09/07/18 02:45 APTT 29.2 Seconds (25.1-36.5) 09/07/18 02:45 Assessment and Plan - Assessment and Plan (Free Text) Assessment: Infectious diseases Attending Physician Attestation Patient seen and examined, discussed with medical technologist chief. I have reviewed the patient's history of present illness, past medical, social, personal and family histories, pertinent physical exam findings, course so far in this hospital admission, pertinent laboratory and imaging results. I agree with the above findings, assessment and plan. In addition, we can switch to PO Keflex and Doxycycline for deltoid abscess growing Strep viridans, S/P I and D. Will need total 7-10 days of antibiotics.
[2018-09-12] MEDS: Enoxaparin 40 mg Syringe SC SCH (11:19)
--- NOTE | 2018-09-12 11:37 | RAD ---
Date of service: 09/12/2018 HISTORY: placement COMPARISON: 02/03/2016 FINDINGS: LUNGS: The lungs are well inflated and clear. PLEURA: No pleural effusions or pneumothorax. CARDIOVASCULAR: The heart is normal in size. No aortic atherosclerotic calcification present. OSSEOUS STRUCTURES: Within normal limits for the patient's age. VISUALIZED UPPER ABDOMEN: Normal. OTHER FINDINGS: None. IMPRESSION: No active pulmonary disease.
[2018-09-12] MEDS: Bacitracin Ointment 30 GM TUBE TOP SCH (12:43)
--- NOTE | 2018-09-12 12:45 | CP.PCM.DIS ---
Provider - Provider Date of Admission: 09/07/18 06:16 Attending physician: Dipika Dowling MD Consults: 09/07/18 06:59 Infectious Disease Consult Routine Comment: Consulting Provider: Petros Wilson Consulting Physician: Petros Wilson Reason for Consult: left shoulder abscess, Hx of IVDA 09/07/18 07:34 Physician Consult Routine Comment: Consulting Provider: Tyra Fitch Consulting Physician: Tyra Fitch Reason for Consult: Subdeltoid abscess 09/07/18 15:40 Wound Care [Nursing Referral for Wound Care] Routine Comment: Physician Instructions: Reason For Exam: LLE open wound 09/07/18 16:57 Social Work Referral Routine Comment: needs support upon discharge Physician Instructions: Reason For Exam: substance abuse 09/10/18 10:33 Physician Consult Routine Comment: Consulting Provider: Mayra Awan Consulting Physician: Mayra Awan Reason for Consult: Patient stated "I want to kill myself" 09/10/18 10:36 Technical Sales Consultant [Case Management Referral] Routine Comment: Physician Instructions: Reason For Exam: Reason for Referral: Discharge Planning 09/10/18 14:06 Cardiology Consult Routine Comment: Consulting Provider: Hill Sheridan Consulting Physician: Hill Sheridan Reason for Consult: Trace Tricuspid Regurgitation, EF 35-40% Time Spent in preparation of Discharge (in minutes): 45 Hospital Course - Lab Results Lab Results: Micro Results 09/07/18 03:15 Blood Blood Culture - Final NO GROWTH AFTER 5 DAYS 09/07/18 03:15 Blood Gram Stain - Final TEST NOT PERFORMED 09/07/18 02:45 Blood Blood Culture - Final NO GROWTH AFTER 5 DAYS 09/07/18 02:45 Blood Gram Stain - Final TEST NOT PERFORMED 09/07/18 10:00 Abscess - First Gram Stain - Final 09/07/18 10:00 Abscess - First Wound Culture - Final Coagulase Neg Staphylococcus Streptococcus Viridans 09/07/18 08:12 Naris MRSA Culture (Admit) - Final MRSA NOT DETECTED Most Recent Lab Values WBC 8.4 10^3/uL (4.5-11.0) 09/10/18 07:00 RBC 5.22 10^6/uL (3.5-6.1) 09/10/18 07:00 Hgb 14.5 g/dL (14.0-18.0) 09/10/18 07:00 Hct 43.9 % (42.0-52.0) 09/10/18 07:00 MCV 84.1 fl (80.0-105.0) 09/10/18 07:00 MCH 27.8 pg (25.0-35.0) 09/10/18 07:00 MCHC 33.0 g/dl (31.0-37.0) 09/10/18 07:00 RDW 13.1 % (11.5-14.5) 09/10/18 07:00 Plt Count 207 10^3/uL (120.0-450.0) 09/10/18 07:00 MPV 10.2 fl (7.0-11.0) 09/10/18 07:00 Gran % 75.9 % (50.0-68.0) H 09/10/18 07:00 Lymph % (Auto) 16.4 % (22.0-35.0) L 09/10/18 07:00 Dale % (Auto) 7.4 % (1.0-6.0) H 09/10/18 07:00 Eos % (Auto) 0.2 % (1.5-5.0) L 09/10/18 07:00 Baso % (Auto) 0.1 % (0.0-3.0) 09/10/18 07:00 Gran # 6.35 (1.4-6.5) 09/10/18 07:00 Lymph # (Auto) 1.4 (1.2-3.4) 09/10/18 07:00 Dale # (Auto) 0.6 (0.1-0.6) 09/10/18 07:00 Eos # (Auto) 0.0 (0.0-0.7) 09/10/18 07:00 Baso # (Auto) 0.01 K/mm3 (0.0-2.0) 09/10/18 07:00 ESR 31 mm/hr (0.00-15.0) H 09/07/18 07:40 PT 11.4 SECONDS (9.4-12.5) 09/07/18 02:45 INR 1.00 09/07/18 02:45 APTT 29.2 Seconds (25.1-36.5) 09/07/18 02:45 Sodium 136 mmol/L (132-148) 09/10/18 07:00 Potassium 3.3 mmol/L (3.6-5.0) L 09/10/18 07:00 Chloride 103 mmol/L (98-107) 09/10/18 07:00 Carbon Dioxide 24 mmol/L (21-33) 09/10/18 07:00 Anion Gap 13 (10-20) 09/10/18 07:00 BUN 17 mg/dL (7-21) 09/10/18 07:00 Creatinine 0.8 mg/dl (0.8-1.5) 09/10/18 07:00 Est GFR ( Amer) > 60 09/10/18 07:00 Est GFR (Non-Af Amer) > 60 09/10/18 07:00 POC Glucose (mg/dL) 214 mg/dL (65-110) H 09/12/18 11:25 Random Glucose 236 mg/dL (70-110) H 09/10/18 07:00 Hemoglobin A1c 14.4 % (4.2-6.5) H 09/07/18 02:45 Calcium 8.9 mg/dL (8.4-10.5) 09/10/18 07:00 Phosphorus 3.3 mg/dL (2.5-4.5) 09/08/18 11:00 Magnesium 1.6 mg/dL (1.7-2.2) L 09/08/18 11:00 Total Bilirubin 0.7 mg/dL (0.2-1.3) 09/10/18 07:00 AST 17 U/L (17-59) D 09/10/18 07:00 ALT 18 U/L (7-56) 09/10/18 07:00 Alkaline Phosphatase 110 U/L (38-126) 09/10/18 07:00 Total Creatine Kinase 77 U/L (35-230) 09/07/18 02:45 C-React Prot High Sens > 15.00 mg/L (1.00-3.00) H 09/07/18 02:45 Total Protein 7.9 g/dL (5.8-8.3) 09/10/18 07:00 Albumin 3.7 g/dL (3.0-4.8) 09/10/18 07:00 Globulin 4.1 gm/dL 09/10/18 07:00 Albumin/Globulin Ratio 0.9 (1.1-1.8) L 09/10/18 07:00 Procalcitonin 1.26 NG/ML (0.19-0.49) H 09/07/18 02:45 Urine Color Yellow (YELLOW) 09/07/18 07:40 Urine Appearance Clear (CLEAR) 09/07/18 07:40 Urine pH 7.0 (4.7-8.0) 09/07/18 07:40 Ur Specific Wolbach 1.015 (1.005-1.035) 09/07/18 07:40 Urine Protein Negative mg/dL (<30 mg/dL) 09/07/18 07:40 Urine Glucose (UA) Negative mg/dL (NEGATIVE) 09/07/18 07:40 Urine Ketones Negative mg/dL (NEGATIVE) 09/07/18 07:40 Urine Blood Negative (NEGATIVE) 09/07/18 07:40 Urine Nitrate Negative (NEGATIVE) 09/07/18 07:40 Urine Bilirubin Negative (NEGATIVE) 09/07/18 07:40 Urine Urobilinogen 0.2 E.U./dL (<1 E.U./dL) 09/07/18 07:40 Ur Leukocyte Esterase Negative Stephanie/uL (NEGATIVE) 09/07/18 07:40 Vancomycin Trough 5.9 ug/mL (5.0-10.0) 09/10/18 07:00 Urine Opiates Screen Negative (NEGATIVE) 09/07/18 07:26 Urine Methadone Screen Negative (NEGATIVE) 09/07/18 07:26 Ur Barbiturates Screen Negative (NEGATIVE) 09/07/18 07:26 Carbamazepine < 3 ug/mL (4.0-10.0) L 09/07/18 08:31 Ur Phencyclidine Scrn Negative (NEGATIVE) 09/07/18 07:26 Ur Amphetamines Screen Negative (NEGATIVE) 09/07/18 07:26 U Benzodiazepines Scrn Negative (NEGATIVE) 09/07/18 07:26 U Oth Cocaine Metabols Negative (NEGATIVE) 09/07/18 07:26 U Cannabinoids Screen Negative (NEGATIVE) 09/07/18 07:26 Alcohol, Quantitative < 10 mg/dL (0-10) 09/07/18 02:45 Hepatitis A IgM Ab Negative (NEGATIVE) 09/07/18 08:00 Hep Bs Antigen Negative (NEGATIVE) 09/07/18 08:00 Hep B Core IgM Ab Negative (NEGATIVE) 09/07/18 08:00 Hepatitis C Antibody Reactive (NEGATIVE) 09/07/18 08:00 HIV 1&2 Ag/Ab, 4th Gen Nonreactive (Nonreactive) 09/07/18 08:00 - Date & Time of H&P Date of H&P: 09/12/18 Time of H&P: 12:15 Discharge Exam - Head Exam Head Exam: ATRAUMATIC, NORMAL INSPECTION, NORMOCEPHALIC - Eye Exam Eye Exam: EOMI - ENT Exam ENT Exam: Mucous Membranes Moist - Respiratory Exam Respiratory Exam: NORMAL BREATHING PATTERN - Cardiovascular Exam Cardiovascular Exam: REGULAR RHYTHM - GI/Abdominal Exam GI & Abdominal Exam: Soft. absent: Distended, Guarding, Tenderness - Extremities Exam Extremities exam: pedal pulses present Additional comments: dry healing 3cm x 2cm wound to superior medial left lower leg just distal to the knee well healing cruciate incision over the left deltoid s/p I&D without any purulent drainage on dressing - Neurological Exam Neurological exam: Alert, Oriented x3 - Psychiatric Exam Psychiatric exam: Agitated - Skin Skin Exam: Dry, Intact, Normal Color, Warm Discharge Plan - Discharge Medications Prescriptions: carBAMazepine [Tegretol] 200 mg PO DAILY #30 tab Cephalexin [Keflex] 500 mg PO Q6 #20 cap Doxycycline Hyclate [Doryx] 100 mg PO Q12 #10 cap Insulin Detemir [Levemir] 12 unit SC HS #1 vial Insulin Lispro [humALOG] 4 units SC AC #1 vial - Follow Up Plan Condition: STABLE Disposition: AGAINST MEDICAL ADVICE Instructions: Abscess (GEN) Additional Instructions: You have been informed that you should remain in the hospital to continue receiving care until you are accepted/ transferred to a drug rehab facility. You have been informed of all risk of leaving the hospital against medical advice and have indicated that you understand these risks and intend to leave against medical advice despite these risks. It was discussed with you that these risks include but are not limited to worsening of your current symptoms, deterioration of your medical condition and . Upon leaving AMA you have been given prescriptions for your home medications. You have additionally been given a prescription for antibiotics doxycycline and Keflex. Please take these in their entirety as prescribed. You were instructed to follow up with your primary care physician regarding your future care within 3-5 days of leaving the hospital. You were additionally encouraged to contact one of the rehab facilities discussed with the social work team to set up in patient drug rehab to avoid future intoxications and withdrawals.
== END 2018-09-12 12:51 | disposition left against medical advice (07) | DRG 901 ==
LOC: ED 01:53 → ERH 06:16 → 5RSO 10:35
PROVIDERS: ADMIT Hospitalist; ATTEND Internal Medicine
PROC: 0K9 Muscles, Drainage (ICD-10-PCS; principal; 2018-09-07)
DX: A41.9 Sepsis, unspecified organism (principal); L02.414 Cutaneous abscess of left upper limb; B19.20 Unspecified viral hepatitis C without hepatic coma; E10.22 Type 1 diabetes mellitus with diabetic chronic kidney disease; E10.622 Type 1 diabetes mellitus with other skin ulcer; E10.65 Type 1 diabetes mellitus with hyperglycemia; F11.23 Opioid dependence with withdrawal; F14.90 Cocaine use, unspecified, uncomplicated; I42.0 Dilated cardiomyopathy; L97.929 Non-pressure chronic ulcer of unspecified part of left lower leg with unspecified severity; N18.9 Chronic kidney disease, unspecified; E78.5 Hyperlipidemia, unspecified; F17.210 Nicotine dependence, cigarettes, uncomplicated; F31.9 Bipolar disorder, unspecified; G40.909 Epilepsy, unspecified, not intractable, without status epilepticus; G47.00 Insomnia, unspecified; G89.29 Other chronic pain; I12.9 Hypertensive chronic kidney disease with stage 1 through stage 4 chronic kidney disease, or unspecified chronic kidney disease; I25.10 Atherosclerotic heart disease of native coronary artery without angina pectoris; L29.9 Pruritus, unspecified; M60.9 Myositis, unspecified; R45.851 Suicidal ideations; W19.XXXA Unspecified fall, initial encounter; Z91.19 Patient's noncompliance with other medical treatment and regimen

== ENCOUNTER 2018-11-20 10:38 | Inpatient (IN) | payer MEDICAID ==
[2018-11-20] MEDS ORDERED: Sodium Chloride 0.9% 1,000 ML IV STA (10:57)
--- NOTE | 2018-11-20 11:05 | ED PDOC ---
Arrival/HPI - General Chief Complaint: High Blood Sugar Historian: Patient - History of Present Illness Narrative History of Present Illness (Text): 11/20/18 10:57 53 year old male with a past medical history significant for HTN, unspecified DM, untreated Hepatitis C, Tobacco Use Disorder, Polysubstance Abuse (Heroin and Cocaine) and unspecified Seizure Disorder, presents to the ED via EMS for evaluation of hyperglycemia. Per EMS, patient reportedly became dizzy and sustained a syncopal episode in [facility] prior to arrival. Upon EMS arrival, patient was found to have an elevated blood glucose of 488 and was subsequently brought to the Emergency department for evaluation. [facility], patient appears lethargic and reports having a left upper extremity infection with associated fever and mild bleeding. Initial repeat blood sugar at bedside was 320. Patient does not verbalize any other somatic complaints. A more complete HPI was unable to be obtained due to the patient's clinical presentation. PMD: Dr. Hargrove Time/Duration: Prior to Arrival Symptom Onset: Gradual Symptom Course: Improving Activities at Onset: Light Context: Other ([facility]) Past Medical History - Provider Review Nursing Documentation Reviewed: Yes - Infectious Disease Hx of Infectious Diseases: None - Cardiac Hx Cardiac Disorders: Yes Hx Hypertension: Yes - Pulmonary Hx Respiratory Disorders: No - Neurological Hx Neurological Disorder: Yes Hx Seizures: Yes (Tegretol 200 low dose) - Renal Hx Renal Disorder: Yes - Endocrine/Metabolic Hx Diabetes Mellitus Type 1: Yes - Hematological/Oncological Hx Hepatitis C: Yes - Musculoskeletal/Rheumatological Hx Falls: No - Genitourinary/Gynecological Hx Sexually Transmitted Diseases: No - Psychiatric Hx Bipolar Disorder: Yes Hx Depression: Yes Hx Substance Use: Yes - Surgical History Hx Orthopedic Surgery: Yes - Anesthesia Hx Anesthesia Reactions: No Family/Social History - Physician Review Nursing Documentation Reviewed: Yes Family/Social History: Unknown Family HX Smoking Status: Heavy Smoker > 10 Cigarettes Daily Hx Alcohol Use: Yes Hx Substance Use: Yes Substance used: heroin Allergies/Home Meds Allergies/Adverse Reactions: Allergies coconut Allergy (Verified 09/07/18 02:09) RASH tomato Allergy (Verified 09/07/18 02:09) SHORTNESS OF BREATH Home Medications: Home Meds Medication Instructions Recorded Confirmed RX: Atorvastatin [Lipitor] 20 mg PO DAILY 09/13/15 05/11/16 Gabapentin 800 mg PO QID 12/05/15 05/11/16 Lisinopril 5 mg PO DAILY 12/05/15 05/11/16 Metformin HCl 500 mg PO BID 12/05/15 09/07/18 Metoprolol Tartrate 25 mg PO DAILY 12/05/15 05/11/16 RX: Glipizide 0 mg PO DAILY 04/28/16 05/11/16 RX: Ranitidine HCl [Acid Automobile Body Customizer] 150 mg PO BID 05/11/16 05/11/16 Review of Systems - Review of Systems Systems not reviewed;Unavailable: Other (Lethargic secondary to hyperglycemia) Constitutional: Fevers Musculoskeletal: Other (Left upper extremity infection) Physical Exam Temperature: Afebrile Blood Pressure: Normal Pulse: Regular Respiratory Rate: Normal Appearance: Positive for: Well-Appearing, Non-Toxic, Comfortable Pain Distress: None Mental Status: Positive for: Alert and Oriented X 3 - Systems Exam Head: Present: Atraumatic, Normocephalic Pupils: Present: PERRL Extroacular Muscles: Present: EOMI Conjunctiva: Present: Normal Mouth: Present: Dry Neck: Present: Normal Range of Motion Respiratory/Chest: Present: Clear to Auscultation, Good Air Exchange. No: Respiratory Distress, Accessory Muscle Use Cardiovascular: Present: Regular Rate and Rhythm, Normal S1, S2. No: Murmurs Abdomen: No: Tenderness, Distention, Peritoneal Signs Back: Present: Normal Inspection Upper Extremity: Present: Other (Multiple IV accesses noticed to upper extremity. Decubitus ulcer noted to left forearm, purulent, draining and with subcutaneous skin avulsion). No: Cyanosis, Edema Lower Extremity: Present: Edema (+1 pitting edema bilaterally) Neurological: Present: GCS=15, Speech Normal Skin: Present: Warm, Dry, Other (Multiple IV accesses sousa noted to upper extremity) Psychiatric: Present: Alert, Anxious, Agitated Medical Decision Making ED Course and Treatment: 11/20/18 10:57 Impression: 53 year old male presents to the ED for evaluation of hyperglycemia. Differential Diagnosis included but are not limited to: -- DKA --Upper extremity abscess Plan: -- VBG -- Labs -- Chest X-ray -- Iv Fluids -- Blood Culture -- Urine Culture -- Wound Culture -- Urinalysis --Vancomycin -- Reassess and disposition Prior Visits: Notes and results from previous visits were reviewed. Progress Notes: 11/20/18 11:10 Unable to access PIV, EJ placed for IV access. Labs drawn with fluids and IV antibiotics started. 11/20/18 12:08 Discussed case with registered nurse surgical services plant operations worker, who will come and evaluate patient at bedside. Discussed case with hospitalist who accepts patient onto service for admission. - RAD Interpretation Narrative RAD Interpretations (Text): 11/20/18 11:53 Chest X-ray reviewed by radiologist, shows: FINDINGS: LUNGS: No active pulmonary disease. PLEURA: No significant pleural effusion identified, no pneumothorax apparent. CARDIOVASCULAR: No aortic atherosclerotic calcification present. Normal cardiac size. No pulmonary vascular congestion. OSSEOUS STRUCTURES: No significant abnormalities. VISUALIZED UPPER ABDOMEN: Normal. OTHER FINDINGS: None. IMPRESSION: No active disease. 11/20/18 13:21 US reviewed by radiologist, shows: FINDINGS: There is no definable fluid collection. No evidence of abscess. No solid or cystic mass is identified. IMPRESSION: No sonographic evidence of discrete abscess. In School Suspension Coordinator: Radiologist - EKG Interpretation EKG Interpretation (Text): 11/20/18 10:56 EKG reviewed, shows NSR @ 76 bpm, LVH, slight QT interval. Interpreted by ED Physician: Yes Type: 12 lead EKG - Scribe Statement The provider has reviewed the documentation as recorded by the Scribe Chad Kim. All medical record entries made by the Scribe were at my direction and personally dictated by me. I have reviewed the chart and agree that the record accurately reflects my personal performance of the history, physical exam, medical decision making, and the department course for this patient. I have also personally directed, reviewed, and agree with the discharge instructions and disposition. Disposition/Present on Arrival - Present on Arrival Any Indicators Present on Arrival: Yes History of DVT/PE: No History of Uncontrolled Diabetes: Yes Urinary Catheter: No History of Decub. Ulcer: No History Surgical Site Infection Following: None - Disposition Have Diagnosis and Disposition been Completed?: Yes Diagnosis: Hyperglycemia, Abscess of upper extremity Disposition: HOSPITALIZED Disposition Time: 12:09 Patient Plan: Admission Condition: GUARDED
--- NOTE | 2018-11-20 11:51 | RAD ---
Date of service: 11/20/2018 HISTORY: sob COMPARISON: 09/12/2018 FINDINGS: LUNGS: No active pulmonary disease. PLEURA: No significant pleural effusion identified, no pneumothorax apparent. CARDIOVASCULAR: No aortic atherosclerotic calcification present. Normal cardiac size. No pulmonary vascular congestion. OSSEOUS STRUCTURES: No significant abnormalities. VISUALIZED UPPER ABDOMEN: Normal. OTHER FINDINGS: None. IMPRESSION: No active disease.
[2018-11-20 11:58] LABS: VENOUS BLOOD GAS BASE EXCESS 5.2 mmol/L (0.0-2.0); VENOUS BLOOD GAS PO2 45 mm/Hg (30-55); VENOUS BLOOD PH 7.39 (7.32-7.43)
[2018-11-20 12:06] LABS: BASO # 0.02 K/mm3 (0.0-2.0); BASO % 0.3 % (0.0-3.0); EOS # 0.2 (0.0-0.7); EOS % 2.2 % (1.5-5.0); HEMOGLOBIN 11.9 g/dL (14.0-18.0); LYMPH # 1.4 (1.2-3.4); LYMPH % 18.1 % (22.0-35.0); MEAN CELL VOLUME 85.2 fl (80.0-105.0); MEAN CORPUSCULAR HEMOGLOBIN 27.9 pg (25.0-35.0); MEAN CORPUSCULAR HGB CONC 32.7 g/dl (31.0-37.0); MEAN PLATELET VOLUME 10.4 fl (7.0-11.0); MONO # 0.4 (0.1-0.6); MONO % 4.7 % (1.0-6.0); RBC 4.27 10^6/uL (3.5-6.1); RED CELL DISTRIBUTION WIDTH 13.2 % (11.5-14.5); WHITE BLOOD COUNT 7.7 10^3/uL (4.5-11.0)
[2018-11-20 12:15] LABS: PARTIAL THROMBOPLASTIN TIME 27.7 Seconds (26.9-38.3); PROTHROMBIN TIME 11.3 SECONDS (9.4-12.5)
[2018-11-20 12:23] LABS: ALBUMIN 3.3 g/dL (3.0-4.8); ALT/SGPT 21 U/L (7-56); AST/SGOT 34 U/L (17-59); BLOOD UREA NITROGEN 9 mg/dL (7-21); GFR NON-AFRICAN AMERICAN > 60
[2018-11-20 12:28] LABS: B-TYPE NATRIURETIC PEPTIDE 41.7 pg/mL (0-450); TROPONIN I < 0.01 ng/mL
--- NOTE | 2018-11-20 13:10 | US ---
Date of service: 11/20/2018 PROCEDURE: Ultrasound soft tissue left upper extremity HISTORY: purulent discharge from [facility] COMPARISON: Not available TECHNIQUE: Ultrasound examination of the medial left elbow was performed adjacent to a draining wound. FINDINGS: There is no definable fluid collection. No evidence of abscess. No solid or cystic mass is identified. IMPRESSION: No sonographic evidence of discrete abscess.
[2018-11-20] MEDS ORDERED: Vancomycin 1gm in NS 250ml 1 GM/250 ML BAG IVPB STA (13:20)
[2018-11-20 13:25] LABS: PH,URINE 6.5 (4.7-8.0); URINE BILIRUBIN NEGATIVE (NEGATIVE); URINE BLOOD NEGATIVE (NEGATIVE); URINE GLUCOSE (UA) >=1000 mg/dL (NEGATIVE); URINE LEUKOCYTE ESTERASE NEGATIVE Leu/uL (NEGATIVE); URINE PROTEIN NEGATIVE mg/dL (<30 mg/dL)
[2018-11-20 13:29] LABS: URINE APPEARANCE CLEAR (CLEAR); URINE COLOR YELLOW (YELLOW)
[2018-11-20 13:52] LABS: BARBITURATES, UR NEGATIVE (NEGATIVE); BENZODIAZEPINES, UR NEGATIVE (NEGATIVE); OPIATES, UR POSITIVE (NEGATIVE); PHENCYCLIDINE, UR NEGATIVE (NEGATIVE)
--- NOTE | 2018-11-20 13:56 | CP.PCM.HP ---
<Magdi Ball - Last Filed: 11/20/18 14:28> History of Present Illness - History of Present Illness History of Present Illness: Magdi Ball, PGY1 H&P for Dr. Dowling cc: "dizziness and worsening left upper extremity wound" Patient is a 53 year old male with a past medical history significant for HTN, unspecified DM, untreated Hepatitis C, Tobacco Use Disorder, Polysubstance Abuse (Heroin and Cocaine) and unspecified Seizure Disorder, presents to the ED via EMS for dizziness for x1 day duration and worsening left upper extremity wound for the past 2 weeks. Patient was at [facility] when his dizziness occurred and he was brought in to the ED. Prior to arrival, patient was noted to be hyperglycemic with a blood glucose of 488. In the ED, Vitals: Temp 98.2, HR 80, BP 135/90, RR 18, SaO2 100%. Medical team evaluated patient in the ED. Patient said he was dizzy and does not remember what happened afterwards. He endorsed a left upper extremity wound that was worsening for the past 2 weeks. Patient was lethargic and drooling during interview. He also had some vomiting during time o f interview. As a result, a full 12 point ROS was unable to be obtained at this time. Patient has a history of non-compliance to medications. PMD: Dr. Hargrove Payloader Machine Operator: Dr. Dejesus Neurologist: Dr. Krishnamurthy As per prior charting: PMH: HTN, unspecified DM, untreated Hepatitis C, Tobacco Use Disorder, Polysubstance Abuse (Heroin and Cocaine) and unspecified Seizure Disorder PSH: [facility] Family History: non-contributory Social History: Smokes 1/2ppd with 25 year pack smoking history; Previous history of alcohol abuse; Current intermittent use of Heroin and Cocaine Allergies: Coconut and Tomato Home Medications: unable to be obtained at this time Present on Admission - Present on Admission Any Indicators Present on Admission: Yes Review of Systems - Review of Systems All systems: reviewed and no additional remarkable complaints except (as per HPI.) Past Patient History - Infectious Disease Hx of Infectious Diseases: None - Past Social History Smoking Status: Heavy Smoker > 10 Cigarettes Daily - CARDIAC Hx Cardiac Disorders: Yes Hx Hypertension: Yes - PULMONARY Hx Respiratory Disorders: No - NEUROLOGICAL Hx Neurological Disorder: Yes Hx Seizures: Yes (Tegretol 200 low dose) - RENAL Hx Chronic Kidney Disease: Yes - ENDOCRINE/METABOLIC Hx Diabetes Mellitus Type 1: Yes - HEMATOLOGICAL/ONCOLOGICAL Hx Hepatitis C: Yes - MUSCULOSKELETAL/RHEUMATOLOGICAL Hx Falls: No - GENITOURINARY/GYNECOLOGICAL Hx Sexually Transmitted Disorders: No - PSYCHIATRIC Hx Bipolar Disorder: Yes Hx Depression: Yes Hx Substance Use: Yes - SURGICAL HISTORY Hx Orthopedic Surgery: Yes - ANESTHESIA Hx Anesthesia Reactions: No Meds Allergies/Adverse Reactions: Allergies Allergy/AdvReac Type Severity Reaction Status Date / Time coconut Allergy RASH Verified 09/07/18 02:09 tomato Allergy SHORTNESS Verified 09/07/18 02:09 OF BREATH Physical Exam - Constitutional Appears: Confused Additional comments: Possible post-ictal state. - Head Exam Head Exam: ATRAUMATIC, NORMAL INSPECTION, NORMOCEPHALIC - Eye Exam Eye Exam: EOMI, Normal appearance - ENT Exam ENT Exam: Mucous Membranes Moist Additional comments: Drooling on exam. - Respiratory Exam Respiratory Exam: Clear to Auscultation Bilateral. absent: Rales, Rhonchi, Wheezes - Cardiovascular Exam Cardiovascular Exam: RRR, +S1, +S2 - GI/Abdominal Exam GI & Abdominal Exam: Normal Bowel Sounds, Soft. absent: Guarding, Rebound, Rigid, Tenderness - Extremities Exam Extremities exam: Positive for: tenderness (Tenderness to palpation of the left upper extremity. ), pedal pulses present Additional comments: Mod-larg, open left upper extremity wound. Muscle/fascia is visible. Gauze in place. - Neurological Exam Additional comments: Awake. Not alert. Could not assess orientation status. - Skin Additional comments: Left upper extremity wound. Results - Vital Signs Recent Vital Signs: Last Vital Signs Temp 98.6 F 11/20/18 13:27 Pulse 77 11/20/18 13:27 Resp 18 11/20/18 13:27 BP 128/64 11/20/18 13:27 Pulse Ox 99 11/20/18 13:27 - Labs Result Diagrams: 11/20/18 11:45 11/20/18 11:45 Labs: Laboratory Results - last 24 hr 11/20/18 11/20/18 11/20/18 11:45 11:45 11:45 WBC 7.7 RBC 4.27 Hgb 11.9 L D Hct 36.4 L MCV 85.2 MCH 27.9 MCHC 32.7 RDW 13.2 Plt Count 276 MPV 10.4 Neut % (Auto) 74.7 H Lymph % (Auto) 18.1 L [place] % (Auto) 4.7 Eos % (Auto) 2.2 Baso % (Auto) 0.3 Lymph # (Auto) 1.4 [place] # (Auto) 0.4 Eos # (Auto) 0.2 Baso # (Auto) 0.02 Absolute Neuts (auto) 5.79 ESR 60 H PT INR APTT pO2 45 VBG pH 7.39 VBG pCO2 52.0 VBG HCO3 31.5 H VBG Total CO2 33.1 H VBG O2 Sat (Calc) 89.9 H VBG Base Excess 5.2 H VBG Potassium 3.6 Sodium 136.0 135 Chloride 101.0 101 Glucose 313 H Lactate 0.8 FiO2 21.0 Potassium 4.2 Carbon Dioxide 30 Anion Gap 8 L BUN 9 Creatinine 0.4 L Est GFR ( Amer) > 60 Est GFR (Non-Af Amer) > 60 Random Glucose 298 H Calcium 9.0 Phosphorus 3.2 Magnesium 1.8 Total Bilirubin 0.3 AST 34 ALT 21 Alkaline Phosphatase 95 Troponin I < 0.01 NT-Pro-B Natriuret Pep 41.7 Total Protein 6.8 Albumin 3.3 Globulin 3.5 Albumin/Globulin Ratio 1.0 L Venous Blood Potassium 3.6 Urine Color Urine Appearance Urine pH Ur Specific [place] Urine Protein Urine Glucose (UA) Urine Ketones Urine Blood Urine Nitrate Urine Bilirubin Urine Urobilinogen Ur Leukocyte Esterase Alcohol, Quantitative 11/20/18 11/20/18 11/20/18 11:45 11:45 12:40 WBC RBC Hgb Hct MCV MCH MCHC RDW Plt Count MPV Neut % (Auto) Lymph % (Auto) [place] % (Auto) Eos % (Auto) Baso % (Auto) Lymph # (Auto) [place] # (Auto) Eos # (Auto) Baso # (Auto) Absolute Neuts (auto) ESR PT 11.3 INR 1.00 APTT 27.7 pO2 VBG pH VBG pCO2 VBG HCO3 VBG Total CO2 VBG O2 Sat (Calc) VBG Base Excess VBG Potassium Sodium Chloride Glucose Lactate FiO2 Potassium Carbon Dioxide Anion Gap BUN Creatinine Est GFR ( Amer) Est GFR (Non-Af Amer) Random Glucose Calcium Phosphorus Magnesium Total Bilirubin AST ALT Alkaline Phosphatase Troponin I NT-Pro-B Natriuret Pep Total Protein Albumin Globulin Albumin/Globulin Ratio Venous Blood Potassium Urine Color Yellow Urine Appearance Clear Urine pH 6.5 Ur Specific [place] 1.010 Urine Protein Negative Urine Glucose (UA) >=1000 Urine Ketones Negative Urine Blood Negative Urine Nitrate Negative Urine Bilirubin Negative Urine Urobilinogen 1.0 H Ur Leukocyte Esterase Negative Alcohol, Quantitative < 10 Assessment & Plan - Assessment and Plan (Free Text) Assessment: Patient is a 53 year old male with a past medical history significant for HTN, unspecified DM, untreated Hepatitis C, Tobacco Use Disorder, Polysubstance Abuse (Heroin and Cocaine) and unspecified Seizure Disorder, presents to the ED via EMS for dizziness for x1 day duration and worsening left upper extremity wound for the past 2 weeks. Patient will be admitted to the floor for altered mental status and left upper extremity wound. Plan: Altered Mental Status - May be secondary to seizure post-ictal state vs stroke vs polysubstance abuse - Head CT w/o contrast to r/o stroke - ativan 1mg IVP daily prn - UDS: +opiates, +cocaine - blood cx, urine cx, wound cx of left upper extremity - NPO - seizure precautions and fall risk - vitals q8 - zofran prn for nausea and vomiting - EKG: NSR at 76 bpm, evidence of LVH. - CXR: no active disease Left Upper Extremity Wound Likely 2/2 IV Drug Abuse - Left upper extremity US: no evidence of abscess - f/u wound cx - IV vanco and zosyn - Surgery is on consult (Dr. Fitch). Follow up recs. DM II - Likely uncontrolled due to medication non-compliance - Blood glucose 298 in ED; no anion gap or evidence of DKA - Hgb A1c - ISS (med) - Accuchecks Anemia - Hgb 11.9 on admission (baseline 14) - iron studies ordered - monitor Hgb Polysubstance Abuse - UDS: +opiates, +cocaine - Hx Hep C DVT ppx: SCD Diet: NPO Dispo: Patient will be managed on the floor. Follow up surgery recs for left upper extremity wound. Case was discussed and reviewed with Attending Physician, Dr. Dowling <Dipika Dowling - Last Filed: 11/21/18 15:00> Results - Vital Signs Recent Vital Signs: Last Vital Signs Temp 97.8 F 11/21/18 06:00 Pulse 77 11/21/18 06:00 Resp 18 11/21/18 06:00 BP 151/89 H 11/21/18 06:00 Pulse Ox 99 11/21/18 06:00 - Labs Result Diagrams: 11/20/18 11:45 11/20/18 11:45 Labs: Laboratory Results - last 24 hr 11/20/18 11/20/18 11/20/18 11:45 11:45 11:45 POC Glucose (mg/dL) Hemoglobin A1c 13.8 H Iron 66 TIBC 284 % Saturation 23 Ferritin 137.0 Triglycerides 76 Cholesterol 203 H LDL Cholesterol Direct 121 HDL Cholesterol 63 H Vitamin B12 432 Folate 15.5 11/20/18 11/21/18 11/21/18 18:32 08:04 11:20 POC Glucose (mg/dL) 226 H 234 H 248 H Hemoglobin A1c Iron TIBC % Saturation Ferritin Triglycerides Cholesterol LDL Cholesterol Direct HDL Cholesterol Vitamin B12 Folate Attending/Attestation - Attestation I have personally seen and examined this patient.: Yes I have fully participated in the care of the patient.: Yes I have reviewed all pertinent clinical information: Yes Notes (Text): 11/21/18 14:54 Attending note; Patient seen and examined with resident and ER. Patient is alert and awake. Able to answer a few questions. Patient was apparently brought from [facility] for dizziness and worsening left upper extremity wound. Patient is a 53 year old male with a past medical history significant for HTN, DM, untreated Hepatitis C, Tobacco Use Disorder, Polysubstance Abuse (Heroin and Cocaine), IV drug abuse, history of abscess, noncompliant with follow-up and unspecified Seizure Disorder, presents to the ED via EMS for dizziness for x1 day duration and worsening left upper extremity wound for the past 2 weeks. 1. Dizziness/presyncope; mostly secondary to drug abuse. Monitor closely. Patient is alert and awake. Able to answer a few questions. CT head is negative. 2. Diabetes uncontrolled/; secondary to noncompliance with follow-up. Continue IV fluids. Started on insulin. 3. Left upper extremity open wound secondary to active IV drug abuse. Drug abuse cessation is advised. Monitor for withdrawal symptoms. IV Ativan as needed ordered. Wound care evaluation requested. Surgery evaluation requested. 4. Heroin Abuse; complete cessation is strongly advised. 5. cocaine abuse; complete cessation is strongly advised. 6. Noncompliance with follow-up. Monitor closely. Prognosis is poor secondary to continuous drug abuse and noncompliance with follow-up. Upon discharge the patient will follow up With PMD Dr. Hargrove. 11/21/18 14:58
[2018-11-20] MEDS ORDERED: Piperacillin/Tazobact 3.375 gm 100 ML IVPB SCH (14:45)
[2018-11-20 15:01] LABS: IRON 66 ug/dL (45-180)
[2018-11-20 15:10] LABS: % IRON SATURATION 23 % (20-55); TOTAL IRON BINDING CAPACITY 284 ug/dL (261-462)
--- NOTE | 2018-11-20 16:06 | CT ---
Date of service: 11/20/2018 PROCEDURE: CT HEAD WITHOUT CONTRAST. HISTORY: ams COMPARISON: 12/05/2015 TECHNIQUE: Axial computed tomography images were obtained through the head/brain without intravenous contrast. Radiation dose: Total exam DLP = 929.66 mGy-cm. This CT exam was performed using one or more of the following dose reduction techniques: Automated exposure control, adjustment of the mA and/or kV according to patient size, and/or use of iterative reconstruction technique. FINDINGS: HEMORRHAGE: No intracranial hemorrhage. BRAIN: No mass effect or edema. No atrophy or chronic microvascular ischemic changes. VENTRICLES: Unremarkable. No hydrocephalus. CALVARIUM: Unremarkable. PARANASAL SINUSES: Unremarkable as visualized. No significant inflammatory changes. MASTOID AIR CELLS: Unremarkable as visualized. No inflammatory changes. OTHER FINDINGS: None. IMPRESSION: No acute intracranial findings
--- NOTE | 2018-11-20 16:50 | CP.PCM.CON ---
History of Present Illness - History of Present Illness History of Present Illness: Surgery Consult Note for Dr. Fitch (covered by [facility]) Patient is a 53 yo AA male w/ past medical history significant for HTN, unspe cified DM, untreated Hepatitis C, Tobacco Use Disorder, Polysubstance Abuse (Heroin and Cocaine) and unspecified Seizure Disorder, presents to the ED via EMS for dizziness for x1 day duration and worsening left upper extremity wound for the past 2 weeks. Was found passed out on the street and was taken to Emergency Department. Interview was limited due to patient being lethargic. Limited 12 ROS 2/2 patient being very lethargic during interview. PMH: HTN, unspecified DM, untreated Hepatitis C, Tobacco Use Disorder, Polysubstance Abuse (Heroin and Cocaine) and unspecified Seizure Disorder PSH: [facility] Family History: non-contributory Social History: Smokes 1/2ppd with 25 year pack smoking history; Previous history of alcohol abuse; Current intermittent use of Heroin and Cocaine Allergies: Coconut and Tomato Home Medications: unable to be obtained at this time Review of Systems - Review of Systems Review of Systems: Lethargy limiting ROS Past Patient History - Infectious Disease Hx of Infectious Diseases: None - Past Social History Smoking Status: Heavy Smoker > 10 Cigarettes Daily - CARDIAC Hx Cardiac Disorders: Yes Hx Hypertension: Yes - PULMONARY Hx Respiratory Disorders: No - NEUROLOGICAL Hx Neurological Disorder: Yes Hx Seizures: Yes (Tegretol 200 low dose) - RENAL Hx Chronic Kidney Disease: Yes - ENDOCRINE/METABOLIC Hx Diabetes Mellitus Type 1: Yes - HEMATOLOGICAL/ONCOLOGICAL Hx Hepatitis C: Yes - MUSCULOSKELETAL/RHEUMATOLOGICAL Hx Falls: No - GENITOURINARY/GYNECOLOGICAL Hx Sexually Transmitted Disorders: No - PSYCHIATRIC Hx Bipolar Disorder: Yes Hx Depression: Yes Hx Substance Use: Yes - SURGICAL HISTORY Hx Orthopedic Surgery: Yes - ANESTHESIA Hx Anesthesia Reactions: No Meds Allergies/Adverse Reactions: Allergies Allergy/AdvReac Type Severity Reaction Status Date / Time coconut Allergy RASH Verified 09/07/18 02:09 tomato Allergy SHORTNESS Verified 09/07/18 02:09 OF BREATH - Medications Medications: Current Medications Vancomycin HCl (Vancomycin 1gm) 1 gm in 250 mls @ 167 mls/hr IVPB Q12H BRIANDA; Protocol Piperacillin Sod/Tazobactam Sod (Zosyn 3.375 In Ns 100ml) 100 mls @ 25 mls/hr IVPB Q8 BRIANDA; Protocol Stop: 11/21/18 01:59 Insulin Human Lispro (Humalog Med) 0 units SC ACHS BRIANDA; Protocol Lorazepam (Ativan) 1 mg IVP DAILY PRN; Protocol PRN Reason: Seizure activity Ondansetron HCl (Zofran Inj) 4 mg IVP Q6H PRN PRN Reason: Nausea/Vomiting Physical Exam - Constitutional Appears: Non-toxic, No Acute Distress - Head Exam Head Exam: NORMAL INSPECTION, NORMOCEPHALIC - Eye Exam Eye Exam: EOMI, Normal appearance. absent: Nystagmus, Scleral icterus - ENT Exam ENT Exam: Mucous Membranes Dry - Respiratory Exam Respiratory Exam: Clear to Auscultation Bilateral, NORMAL BREATHING PATTERN. absent: Chest Wall Tenderness, Rhonchi, Wheezes - Cardiovascular Exam Cardiovascular Exam: REGULAR RHYTHM, +S1, +S2. absent: Tachycardia - GI/Abdominal Exam GI & Abdominal Exam: Normal Bowel Sounds, Soft. absent: Diminished Bowel Soun ds, Distended, Firm, Guarding, Tenderness - Extremities Exam Additional comments: left upper extremity in medial forearm, open wound with sub q tissue available and two deep pockets minute amount of drainage noted resembling pus - Neurological Exam Neurological exam: Oriented x3 Additional comments: lethargic - Skin Skin Exam: Intact, Normal Color Results - Vital Signs Recent Vital Signs: Last Vital Signs Temp 98.6 F 11/20/18 13:27 Pulse 77 11/20/18 13:27 Resp 18 11/20/18 13:27 BP 128/64 11/20/18 13:27 Pulse Ox 99 11/20/18 13:27 - Labs Result Diagrams: 11/20/18 11:45 11/20/18 11:45 Labs: Laboratory Results - last 24 hr 11/20/18 11/20/18 11/20/18 10:49 11:45 11:45 WBC 7.7 RBC 4.27 Hgb 11.9 L D Hct 36.4 L MCV 85.2 MCH 27.9 MCHC 32.7 RDW 13.2 Plt Count 276 MPV 10.4 Neut % (Auto) 74.7 H Lymph % (Auto) 18.1 L [place] % (Auto) 4.7 Eos % (Auto) 2.2 Baso % (Auto) 0.3 Lymph # (Auto) 1.4 [place] # (Auto) 0.4 Eos # (Auto) 0.2 Baso # (Auto) 0.02 Absolute Neuts (auto) 5.79 ESR 60 H PT INR APTT pO2 45 VBG pH 7.39 VBG pCO2 52.0 VBG HCO3 31.5 H VBG Total CO2 33.1 H VBG O2 Sat (Calc) 89.9 H VBG Base Excess 5.2 H VBG Potassium 3.6 Sodium 136.0 Chloride 101.0 Glucose 313 H Lactate 0.8 FiO2 21.0 Potassium Carbon Dioxide Anion Gap BUN Creatinine Est GFR ( Amer) Est GFR (Non-Af Amer) POC Glucose (mg/dL) 320 H Random Glucose Calcium Phosphorus Magnesium Iron TIBC % Saturation Total Bilirubin AST ALT Alkaline Phosphatase Troponin I NT-Pro-B Natriuret Pep Total Protein Albumin Globulin Albumin/Globulin Ratio Triglycerides Cholesterol LDL Cholesterol Direct HDL Cholesterol Venous Blood Potassium 3.6 Urine Color Urine Appearance Urine pH Ur Specific [place] Urine Protein Urine Glucose (UA) Urine Ketones Urine Blood Urine Nitrate Urine Bilirubin Urine Urobilinogen Ur Leukocyte Esterase Urine Opiates Screen Urine Methadone Screen Ur Barbiturates Screen Ur Phencyclidine Scrn Ur Amphetamines Screen U Benzodiazepines Scrn U Oth Cocaine Metabols U Cannabinoids Screen Alcohol, Quantitative 11/20/18 11/20/18 11/20/18 11:45 11:45 11:45 WBC RBC Hgb Hct MCV MCH MCHC RDW Plt Count MPV Neut % (Auto) Lymph % (Auto) [place] % (Auto) Eos % (Auto) Baso % (Auto) Lymph # (Auto) [place] # (Auto) Eos # (Auto) Baso # (Auto) Absolute Neuts (auto) ESR PT 11.3 INR 1.00 APTT 27.7 pO2 VBG pH VBG pCO2 VBG HCO3 VBG Total CO2 VBG O2 Sat (Calc) VBG Base Excess VBG Potassium Sodium 135 Chloride 101 Glucose Lactate FiO2 Potassium 4.2 Carbon Dioxide 30 Anion Gap 8 L BUN 9 Creatinine 0.4 L Est GFR ( Amer) > 60 Est GFR (Non-Af Amer) > 60 POC Glucose (mg/dL) Random Glucose 298 H Calcium 9.0 Phosphorus 3.2 Magnesium 1.8 Iron TIBC % Saturation Total Bilirubin 0.3 AST 34 ALT 21 Alkaline Phosphatase 95 Troponin I < 0.01 NT-Pro-B Natriuret Pep 41.7 Total Protein 6.8 Albumin 3.3 Globulin 3.5 Albumin/Globulin Ratio 1.0 L Triglycerides Cholesterol LDL Cholesterol Direct HDL Cholesterol Venous Blood Potassium Urine Color Urine Appearance Urine pH Ur Specific [place] Urine Protein Urine Glucose (UA) Urine Ketones Urine Blood Urine Nitrate Urine Bilirubin Urine Urobilinogen Ur Leukocyte Esterase Urine Opiates Screen Urine Methadone Screen Ur Barbiturates Screen Ur Phencyclidine Scrn Ur Amphetamines Screen U Benzodiazepines Scrn U Oth Cocaine Metabols U Cannabinoids Screen Alcohol, Quantitative < 10 11/20/18 11/20/18 11/20/18 11:45 11:45 12:40 WBC RBC Hgb Hct MCV MCH MCHC RDW Plt Count MPV Neut % (Auto) Lymph % (Auto) [place] % (Auto) Eos % (Auto) Baso % (Auto) Lymph # (Auto) [place] # (Auto) Eos # (Auto) Baso # (Auto) Absolute Neuts (auto) ESR PT INR APTT pO2 VBG pH VBG pCO2 VBG HCO3 VBG Total CO2 VBG O2 Sat (Calc) VBG Base Excess VBG Potassium Sodium Chloride Glucose Lactate FiO2 Potassium Carbon Dioxide Anion Gap BUN Creatinine Est GFR ( Amer) Est GFR (Non-Af Amer) POC Glucose (mg/dL) Random Glucose Calcium Phosphorus Magnesium Iron 66 TIBC 284 % Saturation 23 Total Bilirubin AST ALT Alkaline Phosphatase Troponin I NT-Pro-B Natriuret Pep Total Protein Albumin Globulin Albumin/Globulin Ratio Triglycerides 76 Cholesterol 203 H LDL Cholesterol Direct 121 HDL Cholesterol 63 H Venous Blood Potassium Urine Color Yellow Urine Appearance Clear Urine pH 6.5 Ur Specific [place] 1.010 Urine Protein Negative Urine Glucose (UA) >=1000 Urine Ketones Negative Urine Blood Negative Urine Nitrate Negative Urine Bilirubin Negative Urine Urobilinogen 1.0 H Ur Leukocyte Esterase Negative Urine Opiates Screen Urine Methadone Screen Ur Barbiturates Screen Ur Phencyclidine Scrn Ur Amphetamines Screen U Benzodiazepines Scrn U Oth Cocaine Metabols U Cannabinoids Screen Alcohol, Quantitative 11/20/18 11/20/18 12:40 14:27 WBC RBC Hgb Hct MCV MCH MCHC RDW Plt Count MPV Neut % (Auto) Lymph % (Auto) [place] % (Auto) Eos % (Auto) Baso % (Auto) Lymph # (Auto) [place] # (Auto) Eos # (Auto) Baso # (Auto) Absolute Neuts (auto) ESR PT INR APTT pO2 VBG pH VBG pCO2 VBG HCO3 VBG Total CO2 VBG O2 Sat (Calc) VBG Base Excess VBG Potassium Sodium Chloride Glucose Lactate FiO2 Potassium Carbon Dioxide Anion Gap BUN Creatinine Est GFR ( Amer) Est GFR (Non-Af Amer) POC Glucose (mg/dL) 264 H Random Glucose Calcium Phosphorus Magnesium Iron TIBC % Saturation Total Bilirubin AST ALT Alkaline Phosphatase Troponin I NT-Pro-B Natriuret Pep Total Protein Albumin Globulin Albumin/Globulin Ratio Triglycerides Cholesterol LDL Cholesterol Direct HDL Cholesterol Venous Blood Potassium Urine Color Urine Appearance Urine pH Ur Specific [place] Urine Protein Urine Glucose (UA) Urine Ketones Urine Blood Urine Nitrate Urine Bilirubin Urine Urobilinogen Ur Leukocyte Esterase Urine Opiates Screen Positive H Urine Methadone Screen Negative Ur Barbiturates Screen Negative Ur Phencyclidine Scrn Negative Ur Amphetamines Screen Negative U Benzodiazepines Scrn Negative U Oth Cocaine Metabols Positive H U Cannabinoids Screen Negative Alcohol, Quantitative Assessment & Plan - Assessment and Plan (Free Text) Assessment: 53 yo male w/ polysubstance abuse admitted to hospital for left upper extremity open wound. Plan: Recommend wound care nursing Daily wet to dry dressing changes to left arm open wound Warm compresses q2h Further recommendations per Dr. Fitch (covered by [facility]) PGY-1 Meagan Rivera
--- NOTE | 2018-11-20 17:12 | PCM.SURG1 ---
Surgeon's Initial Post Op Note - Surgeon's Notes Surgeon: Dr. Suero Motor Coach Chauffeur: Mickey PGY2; Shen MS3 Type of Anesthesia: None Pre-Operative Diagnosis: Saral Decubitus Operative Findings: Necrotic skin edges of sacral decubitus Post-Operative Diagnosis: Same Operation Performed: Bedside Sharp Debridement of Sacral Decubitus. Wound Vac Placement Specimen/Specimens Removed: none Estimated Blood Loss: EBL {In ML}: 0 Blood Products Given: N/A Drains Used: Wound Vac Post-Op Condition: Good Date of Surgery/Procedure: 11/20/18 Time of Surgery/Procedure: 17:12
[2018-11-20] MEDS: Insulin Lispro (humaLOG) MEDIUM Coverage SC SCH ×2 (19:35→22:57)
[2018-11-20] MEDS ORDERED: Insulin Lispro 1 UNITS/0.01 ML ONE (19:36)
[2018-11-20 20:57] LABS: FOLATE 15.5 ng/mL
--- NOTE | 2018-11-20 22:37 | CARD ---
APPROVED REPORT Date of service: 11/20/2018 EKG Measurement Heart [id number] <Conclusion> Normal sinus rhythm Minimal voltage criteria for LVH, may be normal variant Borderline ECG
[2018-11-21 03:26] VITALS: BMI 27.3
[2018-11-21] MEDS: Insulin Lispro (humaLOG) MEDIUM Coverage SC SCH ×4 (08:13→23:20)
[2018-11-21] MEDS ORDERED: Piperacillin/Tazobact 3.375 gm 100 ML IVPB STA (11:10)
[2018-11-21] MEDS: Vancomycin 1gm in NS 250ml 1 GM/250 ML BAG IVPB SCH ×2 (11:22→21:51)
--- NOTE | 2018-11-21 11:25 | CP.PCM.PN ---
Subjective - Date & Time of Evaluation Date of Evaluation: 11/21/18 Time of Evaluation: 11:22 - Subjective Subjective: Surgery Progress Note for Dr. Suero (covering for Dr. Fitch) S/E at bedside. Offers no input as patient continues to be lethargic probably 2/2 withdrawal symptoms. According to nursing, patient had episodes of vomiting and urination near bedside. Limited ROS Objective - Vital Signs/Intake and Output Vital Signs (last 24 hours): Temp Pulse Resp BP Pulse Ox 97.8 F 77 18 151/89 H 99 11/21/18 06:00 11/21/18 06:00 11/21/18 06:00 11/21/18 06:00 11/21/18 06:00 Intake and Output: 11/21/18 11/21/18 06:59 18:59 Intake Total 240 Balance 240 - Medications Medications: Current Medications Vancomycin HCl (Vancomycin 1gm) 1 gm in 250 mls @ 167 mls/hr IVPB Q12H BRIANDA; Protocol Levetiracetam 750 mg/ Sodium (Chloride) 107.5 mls @ 215 mls/hr IVPB Q12 BRIANDA Piperacillin Sod/Tazobactam Sod (Zosyn 3.375 In Ns 100ml) 100 mls @ 200 mls/hr IVPB STAT STA; Protocol Stop: 11/21/18 11:39 Insulin Human Lispro (Humalog Med) 0 units SC ACHS BIRANDA; Protocol Last Admin: 11/21/18 08:13 Dose: 3 unit Lorazepam (Ativan) 1 mg IVP DAILY PRN; Protocol PRN Reason: Seizure activity Methadone HCl (Methadone) 10 mg PO TID PRN PRN Reason: Opioid withdrawal Ondansetron HCl (Zofran Inj) 4 mg IVP Q6H PRN PRN Reason: Nausea/Vomiting Last Admin: 11/21/18 08:18 Dose: 4 mg - Labs Labs: 11/20/18 11:45 11/20/18 11:45 PT 11.3 SECONDS (9.4-12.5) 11/20/18 11:45 INR 1.00 11/20/18 11:45 APTT 27.7 Seconds (26.9-38.3) 11/20/18 11:45 - Additional Findings Additional findings: - Constitutional Appears: Non-toxic, No Acute Distress - Head Exam Head Exam: NORMAL INSPECTION, NORMOCEPHALIC - Eye Exam Eye Exam: EOMI, Normal appearance. absent: Nystagmus, Scleral icterus - ENT Exam ENT Exam: Mucous Membranes Dry - Respiratory Exam Respiratory Exam: Clear to Auscultation Bilateral, NORMAL BREATHING PATTERN. absent: Chest Wall Tenderness, Rhonchi, Wheezes - Cardiovascular Exam Cardiovascular Exam: REGULAR RHYTHM, +S1, +S2. absent: Tachycardia - GI/Abdominal Exam GI & Abdominal Exam: Normal Bowel Sounds, Soft. absent: Diminished Bowel Sounds, Distended, Firm, Guarding, Tenderness - Extremities Exam Additional comments: left upper extremity in medial forearm, open wound with sub q tissue visible and two deep pockets minute amount of drainage noted resembling pus - Neurological Exam Neurological exam: Oriented x3 Additional comments: lethargic - Skin Skin Exam: Intact, Normal Color Assessment and Plan - Assessment and Plan (Free Text) Assessment: 53 yo male w/ polysubstance abuse admitted to hospital for left upper extremity open wound. Plan: Mupirocin topical Wound cx- prelim positive for g + cocci Will attempt bedside I&D, CT s/p I&D Further medical management as per primary team Further recommendations per Dr. Suero (covering for Fitch) PGY-1 Meagan Rivera
[2018-11-21] MEDS ORDERED: Lidocaine 1% Inj (20ml) IJ STA (11:59)
--- NOTE | 2018-11-21 13:58 | CP.PCM.PN ---
<Magdi Ball - Last Filed: 11/21/18 13:51> Subjective - Date & Time of Evaluation Date of Evaluation: 11/21/18 Time of Evaluation: 08:00 - Subjective Subjective: Magdi Ball PGY1 Medicine Progress Note for Dr. Dowling Patient was seen and examined at bedside this morning. Vital signs stable. No adverse overnight events. Patient still remains lethargic. He is AAOx2. Patient's vomit and urine was noted at bedside. Patient also had taken out his EJ IV access. Patient is poor historian. Says he has no cp, sob, abdominal pain. Still has pain in his left upper extremity open wound. A full 12 point ROS was limited given patient's condition. Objective - Vital Signs/Intake and Output Vital Signs (last 24 hours): Temp Pulse Resp BP Pulse Ox 97.8 F 77 18 151/89 H 99 11/21/18 06:00 11/21/18 06:00 11/21/18 06:00 11/21/18 06:00 11/21/18 06:00 Intake and Output: 11/21/18 11/21/18 06:59 18:59 Intake Total 240 Output Total 400 Balance 240 -400 - Medications Medications: Current Medications Vancomycin HCl (Vancomycin 1gm) 1 gm in 250 mls @ 167 mls/hr IVPB Q12H BRIANDA; Protocol Last Admin: 11/21/18 11:22 Dose: 167 mls/hr Levetiracetam 750 mg/ Sodium (Chloride) 107.5 mls @ 215 mls/hr IVPB Q12 BRIANDA Last Admin: 11/21/18 12:43 Dose: 215 mls/hr Insulin Human Lispro (Humalog Med) 0 units SC ACHS BRIANDA; Protocol Last Admin: 11/21/18 12:35 Dose: 5 unit Lorazepam (Ativan) 1 mg IVP DAILY PRN; Protocol PRN Reason: Seizure activity Methadone HCl (Methadone) 10 mg PO TID PRN PRN Reason: Opioid withdrawal Last Admin: 11/21/18 12:38 Dose: 10 mg Ondansetron HCl (Zofran Inj) 4 mg IVP Q6H PRN PRN Reason: Nausea/Vomiting Last Admin: 11/21/18 08:18 Dose: 4 mg - Labs Labs: 11/20/18 11:45 11/20/18 11:45 PT 11.3 SECONDS (9.4-12.5) 11/20/18 11:45 INR 1.00 11/20/18 11:45 APTT 27.7 Seconds (26.9-38.3) 11/20/18 11:45 - Constitutional Appears: Confused. No acute distress. Additional comments: - Head Exam Head Exam: ATRAUMATIC, NORMAL INSPECTION, NORMOCEPHALIC - Eye Exam Eye Exam: EOMI, Normal appearance - ENT Exam ENT Exam: Mucous Membranes Moist Additional comments: - Respiratory Exam Respiratory Exam: Clear to Auscultation Bilateral. absent: Rales, Rhonchi, Whee zes - Cardiovascular Exam Cardiovascular Exam: RRR, +S1, +S2 - GI/Abdominal Exam GI & Abdominal Exam: Normal Bowel Sounds, Soft. absent: Guarding, Rebound, Rigid, Tenderness - Extremities Exam Extremities exam: Positive for: tenderness (Tenderness to palpation of the left upper extremity. ), pedal pulses present Additional comments: Mod-large, open left upper extremity wound at the olecranon. Subcutaneous tissue is visible with deep pockets. Gauze in place. - Neurological Exam Additional comments: Awake. Alert. AAOx2. - Skin Additional comments: Left upper extremity open wound. Assessment and Plan - Assessment and Plan (Free Text) Assessment: Patient is a 53 year old male with a past medical history significant for HTN, unspecified DM, untreated Hepatitis C, Tobacco Use Disorder, Polysubstance Abuse (Heroin and Cocaine) and unspecified Seizure Disorder, presents to the ED via EMS for dizziness for x1 day duration and worsening left upper extremity open wound for the past 2 weeks. Patient will be admitted to the floor for altered mental status and left upper extremity open wound. Plan: Left Upper Extremity Open Wound Likely 2/2 IV Drug Abuse - Left upper extremity wound cx grew gram positive cocci (prelim) - c/w IV vanco and zosyn (Day 2) - ID consulted (Dr. Kline). Follow up recs. - Surgery is on consult (Dr. Fitch). Recs appreciated. - Left upper extremity US (11/20): no evidence of abscess Altered Mental Status - improving - May be secondary to seizure vs polysubstance abuse - started on methadone 10mg TID prn - started on Keppra IVPB q12 - c/w ativan 1mg IVP daily prn - [facility]asys for monitoring - Head CT w/o contrast (11/20): no acute findings - Blood cx negative x2 (prelim) - UCx negative - Clear liquid diet; advance diet as tolerated - Nursing swallow eval was passed - aspiration precautions - c/w seizure precautions and fall risk - zofran prn for nausea and vomiting - UDS: +opiates, +cocaine DM II - Hgb A1c 13.8 - uncontrolled due to medication non-compliance - ISS (med) - Accuchecks Anemia - Hgb 11.9 on admission (baseline 14) - MCV normocytic - monitor Hgb Polysubstance Abuse - UDS: +opiates, +cocaine - Hx Hep C DVT ppx: SCD Diet: NPO Dispo: Patient will be managed on the floor. Follow up surgery recs for left upper extremity open wound. Case was discussed and reviewed with Attending Physician, Dr. Dowling <Dipika Dowling - Last Filed: 11/21/18 15:05> Objective - Vital Signs/Intake and Output Vital Signs (last 24 hours): Temp Pulse Resp BP Pulse Ox 97.8 F 77 18 151/89 H 99 11/21/18 06:00 11/21/18 06:00 11/21/18 06:00 11/21/18 06:00 11/21/18 06:00 Intake and Output: 11/21/18 11/21/18 06:59 18:59 Intake Total 240 Output Total 400 Balance 240 -400 - Medications Medications: Current Medications Vancomycin HCl (Vancomycin 1gm) 1 gm in 250 mls @ 167 mls/hr IVPB Q12H BRIANDA; Protocol Last Admin: 11/21/18 11:22 Dose: 167 mls/hr Levetiracetam 750 mg/ Sodium (Chloride) 107.5 mls @ 215 mls/hr IVPB Q12 BRIANDA Last Admin: 11/21/18 12:43 Dose: 215 mls/hr Insulin Human Lispro (Humalog Med) 0 units SC ACHS BRIANDA; Protocol Last Admin: 11/21/18 12:35 Dose: 5 unit Lorazepam (Ativan) 1 mg IVP DAILY PRN; Protocol PRN Reason: Seizure activity Methadone HCl (Methadone) 10 mg PO TID PRN PRN Reason: Opioid withdrawal Last Admin: 11/21/18 12:38 Dose: 10 mg Mupirocin (Bactroban Ointment) 0 gm TOP BID BRIANDA Ondansetron HCl (Zofran Inj) 4 mg IVP Q6H PRN PRN Reason: Nausea/Vomiting Last Admin: 11/21/18 08:18 Dose: 4 mg - Labs Labs: 11/20/18 11:45 11/20/18 11:45 PT 11.3 SECONDS (9.4-12.5) 11/20/18 11:45 INR 1.00 11/20/18 11:45 APTT 27.7 Seconds (26.9-38.3) 11/20/18 11:45 Attending/Attestation - Attestation I have personally seen and examined this patient.: Yes I have fully participated in the care of the patient.: Yes I have reviewed all pertinent clinical information, including history, physical exam and plan: Yes Notes (Text): 11/21/18 15:02 Attending note; Patient seen and examined with resident. Patient had vomited on the floor. Complaining of abdominal discomfort due to withdrawal symptoms. Patient is alert and awake. Able to answer a few questions. Little lethargic. Patient is a 53 year old male with a past medical history significant for HTN, DM, untreated Hepatitis C, Tobacco Use Disorder, Polysubstance Abuse (Heroin and Cocaine), IV drug abuse, history of abscess, noncompliant with follow-up and unspecified Seizure Disorder, presents to the ED via EMS for dizziness for x1 day duration and worsening left upper extremity wound for the past 2 weeks. 1. Dizziness/presyncope; mostly secondary to drug abuse. Monitor closely. lethargy is improving. Patient is alert and awake. Able to answer a few questions. CT head is negative. 2. Diabetes uncontrolled/; secondary to noncompliance with follow-up. Continue IV fluids. Started on insulin. hemoglobin A1c is 13.8. 3. Left upper extremity open wound secondary to active IV drug abuse. Drug abuse cessation is advised. Currently in withdrawal symptoms. IV Ativan as needed ordered. Wound care evaluation appreciated. surgery evaluation appreciated. Ultrasound is negative for abscess. CT scan ordered . Follow-up closely. 4. Heroin Abuse; complete cessation is strongly advised. Currently in withdrawal. Continue methadone as needed. 5. cocaine abuse; complete cessation is strongly advised. Continue IV Ativan. 6. Nausea and vomiting; continue Zofran as needed. Started on clear liquid diet. Continue IV fluids. 7. Anemia; chronic. Hemoglobin is stable at 11. Needs outpatient follow-up. 8. Noncompliance with follow-up. Prognosis is poor secondary to continuous drug abuse and noncompliance with follow-up. Upon discharge the patient will follow up With PMD Dr. Hargrove. 11/21/18 15:03 11/21/18 15:05
[2018-11-21] MEDS ORDERED: Mupirocin 2% Ointment 15 GM TUBE TOP SCH ×3 (15:11→18:00)
[2018-11-21] MEDS: Mupirocin 2% Ointment 15 GM TUBE TOP SCH (19:04)
--- NOTE | 2018-11-22 08:22 | CP.PCM.PN ---
Subjective - Date & Time of Evaluation Date of Evaluation: 11/22/18 Time of Evaluation: 07:20 - Subjective Subjective: Raj Vanegas, PGY-1 Surgery Progress Note for Dr. Suero (covering for Dr. Fitch) Patient seen and evaluated at bedside. Limited ROS due to poor historian and unwillingness to answer our questions. According to nursing, patient had m ultiple episodes of vomiting near bedside overnight. Objective - Vital Signs/Intake and Output Vital Signs (last 24 hours): Temp Pulse Resp BP Pulse Ox 98 F 76 18 162/80 H 98 11/21/18 23:22 11/21/18 23:22 11/21/18 23:22 11/21/18 23:22 11/21/18 23:22 Intake and Output: 11/22/18 11/22/18 06:59 18:59 Intake Total 120 Output Total 400 Balance -280 - Medications Medications: Current Medications Vancomycin HCl (Vancomycin 1gm) 1 gm in 250 mls @ 167 mls/hr IVPB Q12H BRIANDA; Protocol Last Admin: 11/21/18 21:51 Dose: 167 mls/hr Levetiracetam 750 mg/ Sodium (Chloride) 107.5 mls @ 215 mls/hr IVPB Q12 BRIANDA Last Admin: 11/21/18 21:51 Dose: 215 mls/hr Insulin Human Lispro (Humalog Med) 0 units SC ACHS BRIANDA; Protocol Last Admin: 11/21/18 23:20 Dose: Not Given Lorazepam (Ativan) 1 mg IVP DAILY PRN; Protocol PRN Reason: Seizure activity Methadone HCl (Methadone) 10 mg PO TID PRN PRN Reason: Opioid withdrawal Last Admin: 11/22/18 05:03 Dose: 10 mg Mupirocin (Bactroban Ointment) 0 gm TOP BID BRIANDA Last Admin: 11/21/18 19:04 Dose: Not Given Ondansetron HCl (Zofran Inj) 4 mg IVP Q6H PRN PRN Reason: Nausea/Vomiting Last Admin: 11/22/18 05:03 Dose: 4 mg - Labs Labs: 11/20/18 11:45 11/20/18 11:45 PT 11.3 SECONDS (9.4-12.5) 11/20/18 11:45 INR 1.00 11/20/18 11:45 APTT 27.7 Seconds (26.9-38.3) 11/20/18 11:45 - Additional Findings Additional findings: - Constitutional Appears: Non-toxic, No Acute Distress - Head Exam Head Exam: NORMAL INSPECTION, NORMOCEPHALIC - Eye Exam Eye Exam: EOMI, Normal appearance. absent: Nystagmus, Scleral icterus - ENT Exam ENT Exam: Mucous Membranes Dry - Respiratory Exam Respiratory Exam: Clear to Auscultation Bilateral, NORMAL BREATHING PATTERN. absent: Chest Wall Tenderness, Rhonchi, Wheezes - Cardiovascular Exam Cardiovascular Exam: REGULAR RHYTHM, +S1, +S2. absent: Tachycardia - GI/Abdominal Exam GI & Abdominal Exam: Normal Bowel Sounds, Soft. absent: Diminished Bowel Sounds, Distended, Firm, Guarding, Tenderness - Extremities Exam Additional comments: left upper extremity in lateral forearm, open wound with subcutaneous tissue visible no necrotic tissue appreciated - Neurological Exam Neurological exam: Unable to assess Additional comments: lethargic - Skin Skin Exam: Intact, Normal Color Assessment and Plan - Assessment and Plan (Free Text) Assessment: 53 y/o male w/ polysubstance abuse admitted to hospital for left upper extremity open wound. Plan: - Mupirocin topical - Wound cx- + MRSA - F/U CT LUE to r/o abscess - Consent attained for I&D - Further medical management as per primary team Further recs per Dr. Pio Vanegas, PGY-1
[2018-11-22 08:27] LABS: BASO # 0.01 K/mm3 (0.0-2.0); BASO % 0.1 % (0.0-3.0); EOS % 0.1 % (1.5-5.0); HEMOGLOBIN 15.5 g/dL (14.0-18.0); LYMPH # 1.1 (1.2-3.4); LYMPH % 12.2 % (22.0-35.0); MEAN CELL VOLUME 83.7 fl (80.0-105.0); MEAN CORPUSCULAR HEMOGLOBIN 28.4 pg (25.0-35.0); MEAN CORPUSCULAR HGB CONC 33.9 g/dl (31.0-37.0); MEAN PLATELET VOLUME 9.8 fl (7.0-11.0); MONO # 0.3 (0.1-0.6); MONO % 3.1 % (1.0-6.0); RBC 5.46 10^6/uL (3.5-6.1); RED CELL DISTRIBUTION WIDTH 13.1 % (11.5-14.5)
[2018-11-22] MEDS: Insulin Lispro (humaLOG) MEDIUM Coverage SC SCH ×3 (08:46→17:33)
[2018-11-22 08:51] LABS: ALB/GLOB RATIO 0.9 (1.1-1.8); ALBUMIN 4.1 g/dL (3.0-4.8); ALT/SGPT 15 U/L (7-56); AST/SGOT 23 U/L (17-59); BLOOD UREA NITROGEN 16 mg/dL (7-21); CALCIUM 9.7 mg/dL (8.4-10.5); GFR NON-AFRICAN AMERICAN > 60
--- NOTE | 2018-11-22 10:24 | CP.PCM.PN ---
<Magdi Ball - Last Filed: 11/22/18 16:19> Subjective - Date & Time of Evaluation Date of Evaluation: 11/22/18 Time of Evaluation: 08:00 - Subjective Subjective: Magdi Ball PGY1 Medicine Progress Note for Dr. Dowling Patient was seen and examined at bedside this morning. Vital signs stable. No adverse overnight events. Patient's lethargy has improved. He is AAOx3. Patient is being monitored by [facility]. He denies cp, sob, abdominal pain, fevers, chills, fatigue. However, he still endorses pain in his left upper extremity open wound. Patient educated extensively about drug cessation as this will have lethal consequences on his health. During interview, he was agreeable to a bedside I&D by the surgical team. A full 12 point ROS was conducted and unremarkable except as stated above. Objective - Vital Signs/Intake and Output Vital Signs (last 24 hours): Temp Pulse Resp BP Pulse Ox 98.4 F 74 20 149/90 95 11/22/18 06:00 11/22/18 06:00 11/22/18 06:00 11/22/18 06:00 11/22/18 06:00 Intake and Output: 11/22/18 11/22/18 06:59 18:59 Intake Total 120 Output Total 400 Balance -280 - Medications Medications: Current Medications Vancomycin HCl (Vancomycin 1gm) 1 gm in 250 mls @ 167 mls/hr IVPB Q12H BRIANDA; Protocol Last Admin: 11/21/18 21:51 Dose: 167 mls/hr Levetiracetam 750 mg/ Sodium (Chloride) 107.5 mls @ 215 mls/hr IVPB Q12 BRIANDA Last Admin: 11/21/18 21:51 Dose: 215 mls/hr Insulin Detemir (Levemir) 5 unit SC HS BRIANDA Insulin Human Lispro (Humalog Med) 0 units SC ACHS BRIANDA; Protocol Last Admin: 11/22/18 08:46 Dose: 7 unit Lorazepam (Ativan) 1 mg IVP DAILY PRN; Protocol PRN Reason: Seizure activity Magnesium Oxide (Mag-Ox) 400 mg PO ONCE ONE Stop: 11/22/18 10:13 Methadone HCl (Methadone) 10 mg PO TID PRN PRN Reason: Opioid withdrawal Last Admin: 02/21/19 05:03 Dose: 10 mg Mupirocin (Bactroban Ointment) 0 gm TOP BID BRIANDA Last Admin: 11/21/18 19:04 Dose: Not Given Ondansetron HCl (Zofran Inj) 4 mg IVP Q6H PRN PRN Reason: Nausea/Vomiting Last Admin: 11/22/18 05:03 Dose: 4 mg Potassium Chloride (K-Dur 20 Meq Er Tab) 40 meq PO ONCE ONE Stop: 11/22/18 10:13 Potassium Chloride (K-Dur 20 Meq Er Tab) 40 meq PO ONCE ONE Stop: 11/22/18 16:01 - Labs Labs: 11/22/18 08:00 11/22/18 08:00 PT 11.3 SECONDS (9.4-12.5) 11/20/18 11:45 INR 1.00 11/20/18 11:45 APTT 27.7 Seconds (26.9-38.3) 11/20/18 11:45 - Constitutional Appears: No acute distress. Additional comments: - Head Exam Head Exam: ATRAUMATIC, NORMAL INSPECTION, NORMOCEPHALIC - Eye Exam Eye Exam: EOMI, Normal appearance - ENT Exam ENT Exam: Mucous Membranes Moist Additional comments: - Respiratory Exam Respiratory Exam: Clear to Auscultation Bilateral. absent: Rales, Rhonchi, Wheezes - Cardiovascular Exam Cardiovascular Exam: RRR, +S1, +S2 - GI/Abdominal Exam GI & Abdominal Exam: Normal Bowel Sounds, Soft. absent: Guarding, Rebound, Rigid, Tenderness - Extremities Exam Extremities exam: Positive for: tenderness (Tenderness to palpation of the left upper extremity. ), pedal pulses present Additional comments: left upper extremity open wound in the lateral forearm, subcutaneous tissue visible no necrotic tissue appreciated - Neurological Exam Additional comments: Awake. Alert. AAOx3. - Skin Additional comments: Left upper extremity open wound. Assessment and Plan - Assessment and Plan (Free Text) Assessment: Patient is a 53 year old male with a past medical history significant for HTN, unspecified DM, untreated Hepatitis C, Tobacco Use Disorder, Polysubstance Abuse (Heroin and Cocaine) and unspecified Seizure Disorder, presents to the ED via EMS for dizziness for x1 day duration and worsening left upper extremity open wound for the past 2 weeks. Patient admitted to the floor for altered mental status and left upper extremity open wound. Plan: Left Upper Extremity Open Wound 2/2 IV Drug Abuse - Left upper extremity wound cx grew MRSA - CT scan left upper extremity to r/o abscess - contact precautions - Patient now agreeable for bedside I&D with surgical team - c/w mupirocin ointment - c/w wound care - c/w IV vanco q12 (Day 3) - Counseled extensively on drug cessation - Psych consulted (Dr. Nunez) for anxiety/IVDA and refusal for treatment. - ID consulted (Dr. Kline). Pending recommendations. - Surgery is on consult (Dr. Fitch). Recs appreciated. Altered Mental Status - resolved - May have been secondary to seizure vs polysubstance abuse - c/w methadone 10mg TID prn - c/w Keppra IVPB q12 - c/w ativan 1mg IVP daily prn - c/w Avasys - Head CT w/o contrast (11/20): no acute findings - Blood cx negative x2 (prelim) - Clear liquid diet; advance diet as tolerated - c/w aspiration precautions, seizure precautions, and fall precautions - zofran prn for nausea and vomiting - UDS: +opiates, +cocaine DM II - Levemir 5 units SC qHS added - Hgb A1c 13.8 - uncontrolled due to medication non-compliance - ISS (med) - Accuchecks Anemia - Hgb 11.9 on admission (baseline 14) - MCV normocytic - monitor Hgb Polysubstance Abuse - UDS: +opiates, +cocaine - Hx Hep C DVT ppx: SCD Diet: Liquid diet PT is on board Dispo: Patient being managed on the floor. Patient agreeable to I&D with surgery today. Pending social work. Follow up psych recs. Case was discussed and reviewed with Attending Physician, Dr. Dowling <Dipika Dowling - Last Filed: 11/22/18 17:47> Objective - Vital Signs/Intake and Output Vital Signs (last 24 hours): Temp Pulse Resp BP Pulse Ox 99 F 65 18 136/82 95 11/22/18 17:28 11/22/18 17:28 11/22/18 17:28 11/22/18 17:28 11/22/18 17:28 Intake and Output: 11/22/18 11/22/18 06:59 18:59 Intake Total 120 Output Total 400 Balance -280 - Medications Medications: Current Medications Levetiracetam 750 mg/ Sodium (Chloride) 107.5 mls @ 215 mls/hr IVPB Q12 BRIANDA Last Admin: 11/22/18 11:09 Dose: 215 mls/hr Vancomycin HCl (Vancomycin 1gm) 1 gm in 250 mls @ 167 mls/hr IVPB Q12H BRIANDA; Protocol Last Admin: 11/22/18 16:42 Dose: 167 mls/hr Insulin Detemir (Levemir) 5 unit SC HS BRIANDA Insulin Human Lispro (Humalog Med) 0 units SC ACHS BRIANDA; Protocol Last Admin: 11/22/18 17:33 Dose: 5 unit Lorazepam (Ativan) 1 mg IVP DAILY PRN; Protocol PRN Reason: Seizure activity Methadone HCl (Methadone) 10 mg PO TID PRN PRN Reason: Opioid withdrawal Last Admin: 11/22/18 05:03 Dose: 10 mg Mupirocin (Bactroban Ointment) 0 gm TOP BID BRIANDA Last Admin: 11/22/18 17:39 Dose: 1 appl Ondansetron HCl (Zofran Inj) 4 mg IVP Q6H PRN PRN Reason: Nausea/Vomiting Last Admin: 11/22/18 05:03 Dose: 4 mg - Labs Labs: 11/22/18 08:00 11/22/18 08:00 PT 11.3 SECONDS (9.4-12.5) 11/20/18 11:45 INR 1.00 11/20/18 11:45 APTT 27.7 Seconds (26.9-38.3) 11/20/18 11:45 Attending/Attestation - Attestation I have personally seen and examined this patient.: Yes I have fully participated in the care of the patient.: Yes I have reviewed all pertinent clinical information, including history, physical exam and plan: Yes Notes (Text): 11/22/18 17:44 Attending note; Patient seen and examined with resident. more alert and awake. wants to get help for drug problem. Will agreeing for I and D. Patient is alert and awake. Patient is a 53 year old male with a past medical history significant for HTN, DM, untreated Hepatitis C, Tobacco Use Disorder, Polysubstance Abuse (Heroin and Cocaine), IV drug abuse, history of abscess, noncompliant with follow-up and unspecified Seizure Disorder, presents to the ED via EMS for dizziness for x1 day duration and worsening left upper extremity wound for the past 2 weeks. 1. Dizziness/presyncope; mostly secondary to drug abuse. Monitor closely. lethargy is improving. Patient is alert and awake. CT head is negative. 2. Diabetes uncontrolled/; secondary to noncompliance with follow-up. Continue IV fluids. Started on insulin. hemoglobin A1c is 13.8. 3. Left upper extremity open wound secondary to active IV drug abuse. Drug abuse cessation is advised. Currently with mild withdrawal symptoms. IV Ativan as needed ordered. Wound care evaluation appreciated. surgery evaluation appreciated. Ultrasound is negative for abscess. patient refused CT scan and I and D yesterday. agreed for I and D today. Surgery informed. 4. Heroin Abuse; complete cessation is strongly advised. Currently in withdrawal. Continue methadone as needed. 5. cocaine abuse; complete cessation is strongly advised. Continue IV Ativan. 6. Nausea and vomiting; resolving. continue Zofran as needed. Started on clear liquid diet. Continue IV fluids. 7. Noncompliance with follow-up. social professionals evaluation for drug rehab recommended. Prognosis is poor secondary to continuous drug abuse and noncompliance with follow-up. Upon discharge the patient will follow up With PMD Dr. Hargrove.
[2018-11-22] MEDS ORDERED: Piperacillin/Tazobact 3.375 gm 100 ML IVPB SCH (10:45)
[2018-11-22] MEDS: Potassium Chloride 20 mEq ER Tab PO ONE ×2 (11:08→11:32)
[2018-11-22] MEDS: Magnesium Oxide 400 mg Tab UD PO ONE ×2 (11:08→11:32)
[2018-11-22] MEDS: Mupirocin 2% Ointment 15 GM TUBE TOP SCH ×3 (11:31→17:39)
[2018-11-22] MEDS ORDERED: Vancomycin 1gm in NS 250ml 1 GM/250 ML BAG IVPB SCH (14:36)
[2018-11-22] MEDS ORDERED: Potassium Chloride 20 mEq ER Tab PO ONE (16:00)
[2018-11-22] MEDS ORDERED: Lidocaine 1% Inj (20ml) IJ STA (18:53)
--- NOTE | 2018-11-22 19:50 | PCM.SURG1 ---
Surgeon's Initial Post Op Note - Surgeon's Notes Surgeon: Dr. Suero Propulsion Systems Engineer: Mickey PGY2; Shen MS3 Type of Anesthesia: Local (5cc of 1% Lidocaine used) Pre-Operative Diagnosis: Left Arm Abscess Operative Findings: Written consent obtained and witnessed by nursing staff. Left forearm abscess with approximately 10cc of purulent material expressed; wound culture obtained and sent to lab for analysis. 1/4in iodoform packing in place. Post-Operative Diagnosis: same Operation Performed: Left forearm abscess incision and drainage Specimen/Specimens Removed: wound culture Estimated Blood Loss: EBL {In ML}: 5 Drains Used: No Drains Post-Op Condition: Good Date of Surgery/Procedure: 11/22/18 Time of Surgery/Procedure: 18:45
--- NOTE | 2018-11-22 21:41 | CP.PCM.CON ---
History of Present Illness - History of Present Illness History of Present Illness: 53 year old male with PMH of HTN, DM, untreated Hepatitis C, chronic tobacco use, polysubstance abuse, seizure disorder came in to [facility] complaining of left upper extremity wound which has been worsening over the past 2 weeks. He states that it started out small, looked like an abscess, now it has grown, it popped and is now a wound. Apparently when he came to the ED, he was somewhat lethargic. He denies fever or chills, does not recall specific animal contacts, no headache, no abdominal pain, no nausea. Full review of systems was difficult to obtain because of the patient's sleepiness and was not very cooperative. Review of Systems - Review of Systems All systems: reviewed and no additional remarkable complaints except (as per HPI) Past Patient History - Infectious Disease Hx of Infectious Diseases: None - Past Social History Smoking Status: Never Smoked - CARDIAC Hx Cardiac Disorders: Yes Hx Hypertension: Yes - PULMONARY Hx Respiratory Disorders: No - NEUROLOGICAL Hx Neurological Disorder: Yes Hx Seizures: Yes (Tegretol 200 low dose) - RENAL Hx Chronic Kidney Disease: Yes - ENDOCRINE/METABOLIC Hx Diabetes Mellitus Type 1: Yes - HEMATOLOGICAL/ONCOLOGICAL Hx Hepatitis C: Yes - MUSCULOSKELETAL/RHEUMATOLOGICAL Hx Falls: No - GENITOURINARY/GYNECOLOGICAL Hx Sexually Transmitted Disorders: No - PSYCHIATRIC Hx Bipolar Disorder: Yes Hx Depression: Yes - SURGICAL HISTORY Hx Orthopedic Surgery: Yes - ANESTHESIA Hx Anesthesia Reactions: No Meds Allergies/Adverse Reactions: Allergies Allergy/AdvReac Type Severity Reaction Status Date / Time coconut Allergy RASH Verified 09/07/18 02:09 tomato Allergy SHORTNESS Verified 09/07/18 02:09 OF BREATH - Medications Medications: Current Medications Vancomycin HCl (Vancomycin 1gm) 1 gm in 250 mls @ 167 mls/hr IVPB Q12H BRIANDA; Protocol Last Admin: 11/21/18 21:51 Dose: 167 mls/hr Levetiracetam 750 mg/ Sodium (Chloride) 107.5 mls @ 215 mls/hr IVPB Q12 BRIANDA Last Admin: 11/21/18 21:51 Dose: 215 mls/hr Insulin Human Lispro (Humalog Med) 0 units SC ACHS BRIANDA; Protocol Last Admin: 11/21/18 16:38 Dose: 3 unit Lorazepam (Ativan) 1 mg IVP DAILY PRN; Protocol PRN Reason: Seizure activity Methadone HCl (Methadone) 10 mg PO TID PRN PRN Reason: Opioid withdrawal Last Admin: 11/21/18 12:38 Dose: 10 mg Mupirocin (Bactroban Ointment) 0 gm TOP BID BRIANDA Last Admin: 11/21/18 19:04 Dose: Not Given Ondansetron HCl (Zofran Inj) 4 mg IVP Q6H PRN PRN Reason: Nausea/Vomiting Last Admin: 11/21/18 16:54 Dose: 4 mg Physical Exam - Constitutional Appears: Chronically Ill - Head Exam Head Exam: NORMAL INSPECTION - Respiratory Exam Respiratory Exam: Decreased Breath Sounds - Cardiovascular Exam Cardiovascular Exam: +S1, +S2 - GI/Abdominal Exam GI & Abdominal Exam: Soft. absent: Tenderness - Extremities Exam Additional comments: left arm with 4x5 cm open wound on volar aspect of left forearm Results - Vital Signs Recent Vital Signs: Last Vital Signs Temp 98 F 11/21/18 14:00 Pulse 62 11/21/18 14:00 Resp 16 11/21/18 14:00 BP 151/90 H 11/21/18 14:00 Pulse Ox 98 11/21/18 14:00 - Labs Result Diagrams: 11/22/18 08:00 11/22/18 08:00 Labs: Laboratory Results - last 24 hr 11/21/18 11/21/18 11/21/18 08:04 11:20 16:24 POC Glucose (mg/dL) 234 H 248 H 230 H 11/21/18 22:05 POC Glucose (mg/dL) 229 H Assessment & Plan - Assessment and Plan (Free Text) Plan: Assessment Left arm infected wound/ skin and skin structure infection with MRSA HTN DM untreated Hepatitis C chronic tobacco use polysubstance abuse seizure disorder Plan started IV Vancomycin; wound cx are showing MRSA would recommend Surgical evaluation will monitor clinically HIV test was negative in 09/2018 will need to see Hepatitis specialist as outpatient for his hepatitis C infection
[2018-11-22] MEDS: Insulin Detemir 100 units/ml Vial (Levemir) SC SCH (22:28)
[2018-11-22] MEDS: Vancomycin 1.25 GM in Sodium Chloride 0.9% 500 ML IVPB SCH (23:21)
--- NOTE | 2018-11-23 08:00 | CP.PCM.PN ---
Subjective - Date & Time of Evaluation Date of Evaluation: 11/23/18 Time of Evaluation: 07:00 - Subjective Subjective: Raj Vanegas, PGY-1 Surgery Progress Note for Dr. Suero (covering for Dr. Fitch) Patient seen and evaluated at bedside. No acute events reported overnight. Tolerated L forearm abscess I&D yesterday. Denies chest pain, palpitations, shortness of breath, headaches. Objective - Vital Signs/Intake and Output Vital Signs (last 24 hours): Temp Pulse Resp BP Pulse Ox 99 F 65 18 136/82 95 11/22/18 17:28 11/22/18 17:28 11/22/18 17:28 11/22/18 17:28 11/22/18 17:28 Intake and Output: 11/23/18 11/23/18 06:59 18:59 Intake Total 800 Output Total 400 Balance 400 - Medications Medications: Current Medications Levetiracetam 750 mg/ Sodium (Chloride) 107.5 mls @ 215 mls/hr IVPB Q12 BRIANDA Last Admin: 11/22/18 22:29 Dose: 215 mls/hr Vancomycin HCl 1.25 gm/ Sodium (Chloride) 500 mls @ 167 mls/hr IVPB Q12H BRIANDA; Protocol Last Admin: 11/22/18 23:21 Dose: 167 mls/hr Insulin Detemir (Levemir) 5 unit SC HS BRIANDA Last Admin: 11/22/18 22:28 Dose: 5 unit Insulin Human Lispro (Humalog Med) 0 units SC ACHS BRIANDA; Protocol Last Admin: 11/22/18 17:33 Dose: 5 unit Lorazepam (Ativan) 1 mg IVP DAILY PRN; Protocol PRN Reason: Seizure activity Methadone HCl (Methadone) 10 mg PO TID PRN PRN Reason: Opioid withdrawal Last Admin: 11/22/18 05:03 Dose: 10 mg Mupirocin (Bactroban Ointment) 0 gm TOP BID BRIANDA Last Admin: 11/22/18 17:39 Dose: 1 appl Ondansetron HCl (Zofran Inj) 4 mg IVP Q6H PRN PRN Reason: Nausea/Vomiting Last Admin: 11/22/18 05:03 Dose: 4 mg - Labs Labs: 11/22/18 08:00 11/22/18 08:00 PT 11.3 SECONDS (9.4-12.5) 11/20/18 11:45 INR 1.00 11/20/18 11:45 APTT 27.7 Seconds (26.9-38.3) 11/20/18 11:45 - Additional Findings Additional findings: - Constitutional Appears: Non-toxic, No Acute Distress - Head Exam Head Exam: NORMAL INSPECTION, NORMOCEPHALIC - Eye Exam Eye Exam: EOMI, Normal appearance. absent: Nystagmus, Scleral icterus - ENT Exam ENT Exam: Mucous Membranes Dry - Respiratory Exam Respiratory Exam: Clear to Auscultation Bilateral, NORMAL BREATHING PATTERN. absent: Chest Wall Tenderness, Rhonchi, Wheezes - Cardiovascular Exam Cardiovascular Exam: REGULAR RHYTHM, +S1, +S2. absent: Tachycardia - GI/Abdominal Exam GI & Abdominal Exam: Normal Bowel Sounds, Soft. absent: Diminished Bowel Sounds, Distended, Firm, Guarding, Tenderness - Extremities Exam Additional comments: left upper extremity in lateral forearm, post I&D surgical changes, no necrotic tissue appreciated, well-healing - Neurological Exam Neurological exam: Unable to assess Additional comments: lethargic - Skin Skin Exam: Intact, Normal Color Assessment and Plan - Assessment and Plan (Free Text) Assessment: 53 y/o male w/ polysubstance abuse admitted to hospital for left upper extremity open wound POD#1 LUE abscess I&D. Plan: - Mupirocin topical - Wound cx- + MRSA, on IV Vanc per ID - Local wound care - ADAT - F/U CT LUE to r/o abscess - Further medical management as per primary team Further recs per Dr. Pio Vanegas, PGY-1
[2018-11-23] MEDS ORDERED: Potassium Chloride 20 mEq ER Tab PO STA (08:34)
[2018-11-23 08:46] LABS: BASO # 0.02 K/mm3 (0.0-2.0); BASO % 0.2 % (0.0-3.0); EOS # 0.1 (0.0-0.7); EOS % 0.9 % (1.5-5.0); HEMOGLOBIN 15.4 g/dL (14.0-18.0); LYMPH # 1.7 (1.2-3.4); LYMPH % 18.6 % (22.0-35.0); MEAN CELL VOLUME 84.9 fl (80.0-105.0); MEAN CORPUSCULAR HEMOGLOBIN 27.7 pg (25.0-35.0); MEAN CORPUSCULAR HGB CONC 32.6 g/dl (31.0-37.0); MEAN PLATELET VOLUME 10.1 fl (7.0-11.0); MONO # 0.5 (0.1-0.6); RBC 5.56 10^6/uL (3.5-6.1); RED CELL DISTRIBUTION WIDTH 13.1 % (11.5-14.5); WHITE BLOOD COUNT 9.3 10^3/uL (4.5-11.0)
[2018-11-23] MEDS: Insulin Lispro (humaLOG) MEDIUM Coverage SC SCH ×5 (09:30→22:24)
[2018-11-23 10:02] LABS: ALB/GLOB RATIO 0.9 (1.1-1.8); ALBUMIN 3.6 g/dL (3.0-4.8); ALT/SGPT 10 U/L (7-56); AST/SGOT 20 U/L (17-59); BLOOD UREA NITROGEN 13 mg/dL (7-21); GFR NON-AFRICAN AMERICAN > 60
[2018-11-23] MEDS: Vancomycin 1.25 GM in Sodium Chloride 0.9% 500 ML IVPB SCH ×2 (10:27→22:25)
[2018-11-23] MEDS: Mupirocin 2% Ointment 15 GM TUBE TOP SCH ×2 (10:28→18:20)
--- NOTE | 2018-11-23 12:20 | CP.PCM.PN ---
<Magdi Ball - Last Filed: 11/23/18 12:17> Subjective - Date & Time of Evaluation Date of Evaluation: 11/23/18 Time of Evaluation: 08:00 - Subjective Subjective: Magdi Ball, PGY1 Medicine Progress Note for Dr. Dowling Patient was seen and examined at bedside this morning. Vital signs stable. No adverse overnight events. He had I&D yesterday of his open left upper extremity wound and dressing/packing is in place. He is AAOx3. Patient is being monitored by [facility]. He denies cp, sob, abdominal pain, fevers, chills, fatigue. However, he still endorses pain in his left upper extremity open wound. Patient's sister was at bedside this morning; she is aware of the situation. A full 12 point ROS was conducted and unremarkable except as stated above. Objective - Vital Signs/Intake and Output Vital Signs (last 24 hours): Temp Pulse Resp BP Pulse Ox 97.0 F L 64 20 159/90 H 97 11/23/18 06:00 11/23/18 06:00 11/23/18 06:00 11/23/18 06:00 11/23/18 06:00 Intake and Output: 11/23/18 11/23/18 06:59 18:59 Intake Total 800 Output Total 400 Balance 400 - Medications Medications: Current Medications Levetiracetam 750 mg/ Sodium (Chloride) 107.5 mls @ 215 mls/hr IVPB Q12 BRIANDA Last Admin: 11/23/18 10:27 Dose: 215 mls/hr Vancomycin HCl 1.25 gm/ Sodium (Chloride) 500 mls @ 167 mls/hr IVPB Q12H BRIANDA; Protocol Last Admin: 11/23/18 10:27 Dose: 167 mls/hr Insulin Detemir (Levemir) 5 unit SC HS BRIANDA Last Admin: 11/22/18 22:28 Dose: 5 unit Insulin Human Lispro (Humalog Med) 0 units SC ACHS BRIANDA; Protocol Last Admin: 11/23/18 09:30 Dose: 3 unit Lorazepam (Ativan) 1 mg IVP DAILY PRN; Protocol PRN Reason: Seizure activity Methadone HCl (Methadone) 10 mg PO TID PRN PRN Reason: Opioid withdrawal Last Admin: 11/23/18 09:42 Dose: 10 mg Mupirocin (Bactroban Ointment) 0 gm TOP BID BRIANDA Last Admin: 11/23/18 10:28 Dose: 1 appl Ondansetron HCl (Zofran Inj) 4 mg IVP Q6H PRN PRN Reason: Nausea/Vomiting Last Admin: 11/23/18 09:36 Dose: 4 mg - Labs Labs: 11/23/18 08:30 11/23/18 09:20 PT 11.3 SECONDS (9.4-12.5) 11/20/18 11:45 INR 1.00 11/20/18 11:45 APTT 27.7 Seconds (26.9-38.3) 11/20/18 11:45 - Constitutional Appears: No acute distress. Additional comments: - Head Exam Head Exam: ATRAUMATIC, NORMAL INSPECTION, NORMOCEPHALIC - Eye Exam Eye Exam: EOMI, Normal appearance - ENT Exam ENT Exam: Mucous Membranes Moist Additional comments: - Respiratory Exam Respiratory Exam: Clear to Auscultation Bilateral. absent: Rales, Rhonchi, Wheezes - Cardiovascular Exam Cardiovascular Exam: RRR, +S1, +S2 - GI/Abdominal Exam GI & Abdominal Exam: Normal Bowel Sounds, Soft. absent: Guarding, Rebound, Rigid, Tenderness - Extremities Exam Extremities exam: Positive for: tenderness (Tenderness to palpation of the left upper extremity. Improved since admission.), pedal pulses present Additional comments: Left upper extremity open wound in the lateral forearm, subcutaneous tissue visible. Packing and dressing in place. - Neurological Exam Additional comments: Awake. Alert. AAOx3. - Skin Additional comments: Left upper extremity open wound. Assessment and Plan - Assessment and Plan (Free Text) Assessment: Patient is a 53 year old male with a past medical history significant for HTN, unspecified DM, untreated Hepatitis C, Tobacco Use Disorder, Polysubstance Abuse (Heroin and Cocaine) and unspecified Seizure Disorder, presents to the ED via EMS for dizziness for x1 day duration and worsening left upper extremity open wound for the past 2 weeks. Patient admitted to the floor for altered mental status and left upper extremity open wound due to IV drug abuse. Plan: Left Upper Extremity Open Wound 11/03 IV Drug Abuse - Still pending CT scan of LUE to r/o abscess - s/p I&D of LUE wound on 11/22 by surgical team - Left upper extremity wound cx +MRSA - contact precautions - c/w mupirocin ointment - c/w wound care - c/w IV vanco q12 (Day 4) - HIV test pending (negative in 09/2018) - Counseled extensively on drug cessation. Social Work is on board. - Psych consulted (Dr. Nunez) for anxiety/IVDA and refusal for treatment. Pending recs. - ID consulted (Dr. Wilson). Recs appreciated. - Surgery is on consult (Dr. Fitch). Recs appreciated. Hypokalemia - repleted with PO K-Dur - K was 3.4 - monitor - No acute ST or T wave changes on EKG Altered Mental Status - resolved - May have been secondary to seizure vs polysubstance abuse - c/w methadone 10mg TID prn - c/w Keppra IVPB q12 - c/w ativan 1mg IVP daily prn - c/w Avasys for monitoring - Head CT w/o contrast (11/20): no acute findings - Blood cx negative x2 (prelim) - UCx negative - Clear liquid diet; advance diet as tolerated - c/w aspiration precautions, seizure precautions, and fall precautions - zofran prn for nausea and vomiting - UDS: +opiates, +cocaine DM II - uncontrolled - c/w Levemir 5 units SC qHS - Hgb A1c 13.8 - uncontrolled due to medication non-compliance - ISS (med) - Accuchecks Anemia - Hgb 11.9 on admission (baseline 14) - MCV normocytic - monitor Hgb Polysubstance Abuse - UDS: +opiates, +cocaine - Hx Hep C DVT ppx: SCD Diet: Liquid diet PT is on board Dispo: Patient being managed on the floor. Patient is s/p I&D. Further recs from ID and Psych. Case was discussed and reviewed with Attending Physician, Dr. Dowling <Dipika Dowling - Last Filed: 11/24/18 17:00> Objective - Vital Signs/Intake and Output Vital Signs (last 24 hours): Temp Pulse Resp BP Pulse Ox 98.8 F 61 18 127/86 99 11/24/18 08:02 11/24/18 08:02 11/24/18 08:02 11/24/18 08:02 11/24/18 08:02 Intake and Output: 11/24/18 11/24/18 06:59 18:59 Intake Total 840 Output Total 700 Balance 140 - Medications Medications: Current Medications Citalopram Hydrobromide (Celexa) 10 mg PO DAILY [facility] Levetiracetam 750 mg/ Sodium (Chloride) 107.5 mls @ 215 mls/hr IVPB Q12 BRIANDA Last Admin: 11/24/18 09:44 Dose: 215 mls/hr Vancomycin HCl 1.25 gm/ Sodium (Chloride) 500 mls @ 167 mls/hr IVPB Q12H BRIANDA; Protocol Last Admin: 11/24/18 09:45 Dose: 167 mls/hr Insulin Detemir (Levemir) 10 unit SC HS [facility] Insulin Human Lispro (Humalog Med) 0 units SC ACHS [facility]; Protocol Last Admin: 11/24/18 12:33 Dose: 5 unit Lorazepam (Ativan) 1 mg IVP DAILY PRN; Protocol PRN Reason: Seizure activity Methadone HCl (Methadone) 10 mg PO TID PRN PRN Reason: Opioid withdrawal Last Admin: 11/23/18 22:27 Dose: 10 mg Mupirocin (Bactroban Ointment) 0 gm TOP BID BRIANDA Last Admin: 11/24/18 09:45 Dose: 1 appl Ondansetron HCl (Zofran Inj) 4 mg IVP Q6H PRN PRN Reason: Nausea/Vomiting Last Admin: 11/23/18 09:36 Dose: 4 mg Quetiapine Fumarate (Seroquel) 25 mg PO HS [facility]; Protocol - Labs Labs: 11/24/18 08:30 11/24/18 08:30 PT 11.3 SECONDS (9.4-12.5) 11/20/18 11:45 INR 1.00 11/20/18 11:45 APTT 27.7 Seconds (26.9-38.3) 11/20/18 11:45 Attending/Attestation - Attestation I have personally seen and examined this patient.: Yes I have fully participated in the care of the patient.: Yes I have reviewed all pertinent clinical information, including history, physical exam and plan: Yes Notes (Text): 11/24/18 16:57 Attending note; Patient seen and examined with resident. more alert and awake s/p I and D. Dressing in place. No significant bleeding noted. Patient is a 53 year old male with a past medical history significant for HTN, DM, untreated Hepatitis C, Tobacco Use Disorder, Polysubstance Abuse (Heroin and Cocaine), IV drug abuse, history of abscess, noncompliant with follow-up and unspecified Seizure Disorder, presents to the ED via EMS for dizziness for x1 day duration and worsening left upper extremity wound for the past 2 weeks. 1. Dizziness/presyncope; mostly secondary to drug abuse. Patient is alert and awake. CT head is negative. 2. Diabetes uncontrolled/; secondary to noncompliance with follow-up. Continue IV fluids. Started on insulin. hemoglobin A1c is 13.8. 3. Left upper extremity open wound secondary to active IV drug abuse. Drug abuse cessation is advised. Currently with mild withdrawal symptoms. IV Ativan as needed ordered. Wound care evaluation appreciated. surgery evaluation appreciated. Ultrasound is negative for abscess. s/p I and D today. CT scan of the left arm ordered. 4. Heroin Abuse; complete cessation is strongly advised. Currently in withdrawal. Continue methadone as needed. 5. cocaine abuse; complete cessation is strongly advised. Continue IV Ativan. 6. Nausea and vomiting; resolving. continue Zofran as needed. Started on clear liquid diet. Continue IV fluids. 7. Noncompliance with follow-up. manager social responsibility evaluation for drug rehab appreciated. Patient will be going back to living with his sister upon discharge. Will follow up with psychiatric recommendation. Prognosis is poor secondary to continuous drug abuse and noncompliance with follow-up. Upon discharge the patient will follow up With PMD Dr. Hargrove.
--- NOTE | 2018-11-23 16:03 | CP.PCM.PN ---
Subjective - Date & Time of Evaluation Date of Evaluation: 11/23/18 Time of Evaluation: 12:25 - Subjective Subjective: Still feels sleepy, less pain in the left arm, had I and D done by surgery yesterday. No fevers. Objective - Vital Signs/Intake and Output Vital Signs (last 24 hours): Temp Pulse Resp BP Pulse Ox 99 F 65 18 136/82 95 11/22/18 17:28 11/22/18 17:28 11/22/18 17:28 11/22/18 17:28 11/22/18 17:28 Intake and Output: 11/22/18 11/23/18 18:59 06:59 Intake Total 800 Output Total 0 Balance 800 - Medications Medications: Current Medications Levetiracetam 750 mg/ Sodium (Chloride) 107.5 mls @ 215 mls/hr IVPB Q12 BRIANDA Last Admin: 11/22/18 11:09 Dose: 215 mls/hr Vancomycin HCl 1.25 gm/ Sodium (Chloride) 500 mls @ 167 mls/hr IVPB Q12H BRIANDA; Protocol Insulin Detemir (Levemir) 5 unit SC HS BRIANDA Insulin Human Lispro (Humalog Med) 0 units SC ACHS BRIANDA; Protocol Last Admin: 11/22/18 17:33 Dose: 5 unit Lorazepam (Ativan) 1 mg IVP DAILY PRN; Protocol PRN Reason: Seizure activity Methadone HCl (Methadone) 10 mg PO TID PRN PRN Reason: Opioid withdrawal Last Admin: 11/22/18 05:03 Dose: 10 mg Mupirocin (Bactroban Ointment) 0 gm TOP BID BRIANDA Last Admin: 11/22/18 17:39 Dose: 1 appl Ondansetron HCl (Zofran Inj) 4 mg IVP Q6H PRN PRN Reason: Nausea/Vomiting Last Admin: 11/22/18 05:03 Dose: 4 mg - Labs Labs: 11/22/18 08:00 11/22/18 08:00 PT 11.3 SECONDS (9.4-12.5) 11/20/18 11:45 INR 1.00 11/20/18 11:45 APTT 27.7 Seconds (26.9-38.3) 11/20/18 11:45 - Constitutional Appears: Chronically Ill - Head Exam Head Exam: NORMAL INSPECTION - Respiratory Exam Respiratory Exam: Decreased Breath Sounds - Cardiovascular Exam Cardiovascular Exam: +S1, +S2 - GI/Abdominal Exam GI & Abdominal Exam: Soft. absent: Tenderness - Extremities Exam Additional comments: left arm with dressings in place Assessment and Plan - Assessment and Plan (Free Text) Plan: Assessment Left arm infected wound/ skin and skin structure infection with MRSA, S/P I and D yesterday by surgery HTN DM untreated Hepatitis C chronic tobacco use polysubstance abuse seizure disorder Plan continue IV Vancomycin day 2 ; initial wound cx are showing MRSA but also awaiting cultures taken from I and D yesterday will continue to monitor clinically HIV test was negative in 09/2018 will need to see Hepatitis specialist as outpatient for his hepatitis C infection
--- NOTE | 2018-11-23 18:32 | CT ---
Date of service: 11/23/2018 PROCEDURE: CT left upper extremity. HISTORY: rule out abscess, please do after I D COMPARISON: 09/07/2018. CT left upper extremity. Summary of findings on the comparison examination: Lateral deltoid abscess. TECHNIQUE: 2.5 mm axial acquisition and display. Coronal and sagittal reconstructions. Dose report (mGy-cm): 228.22 FINDINGS: At the level of the proximal radius and ulna is a small phlegmonous process/collection measuring 10 mm. There is adjacent cellulitis and CS subcutaneous edema. There is haziness to the underlying extensor carpi radialis muscle. This suggests a component of myositis. The absence of intravenous contrast precludes more accurate assessment of this. No underlying, adjacent osseous abnormalities. IMPRESSION: Phlegmonous process at the level of the proximal radius less than 1 cm. Adjacent cutaneous and subcutaneous edema noted. Findings within adjacent extensor carpi radialis muscle suggests a component of myositis. Negative study for acute osteomyelitis.
[2018-11-23] MEDS: Insulin Detemir 100 units/ml Vial (Levemir) SC SCH (22:26)
--- NOTE | 2018-11-24 01:15 | CON ---
DATE: 11/23/2018 HISTORY OF PRESENT ILLNESS: In short, the patient is a 53-year-old -[place] male with reported history of polysubstance abuse and dependence, heroin and cocaine. The patient was admitted on the medical side for hyperglycemia and dizziness. The patient also had infection of his left upper extremity associated with fever and mild bleeding. Psych consult was called because the patient was refusing to have treatment and the patient has anxiety. This writer producer attempted to speak to the patient. The patient presented to be not willing to have interview, lying down with eyes closed. This writer producer introduced herself, but the patient is not talkative and does not want to participate in interview. This writer producer had prolonged conversation with Dr. Dowling. As per Dr. Dowling, the patient was requesting to have psychiatric evaluation and requested his mood and anxiety to be addressed with medication management. In regard to noncompliance with the medications and treatment plan, right now the patient is calm, cooperative, and participating in treatment plan which is offered. As per collateral information, no behavioral issues from the nursing standpoint and the patient is compliant with medications and wound care. This writer producer reviewed vital signs. Vital signs seem to be stable. Blood pressure is mildly elevated. Medications reviewed. The patient is on Levemir, Humalog, Ativan, methadone 10 mg three times a day as needed, Bactroban, Zofran, and vancomycin. Labs reviewed. Chemistry reviewed. Urinalysis reviewed. Toxicology was positive for opioids and cocaine. Serology reviewed. Microbiology, methicillin-resistant Staph aureus in wound. MENTAL STATUS EXAMINATION: This writer producer was not able to evaluate mental status because of the patient's uncooperative behavior. Based on the previous consultation services, this writer producer was involved in the patient's care in 09/2018, rehab was recommended back then. IMPRESSION: So far, the patient has polysubstance abuse and dependence, rule out mood disorder due to general medical condition, rule out substance-induced mood disorder. PLAN: Continue current management. Continue current medication. The patient is not agitated or aggressive. Over the weekend, Dr. Gordon will follow up on this patient. Should you have any questions, give me a call back. Thank you very much for letting me participate in the care of your patient. Mayra Awan MD [facility] # [id number]
--- NOTE | 2018-11-24 08:37 | CP.PCM.PN ---
Subjective - Date & Time of Evaluation Date of Evaluation: 11/24/18 Time of Evaluation: 08:34 - Subjective Subjective: Surgery: Dr. Suero Pt seen and examined. No acute events overnight. Has mild pain/discomfort at ID site. Objective - Vital Signs/Intake and Output Vital Signs (last 24 hours): Temp Pulse Resp BP Pulse Ox 98.8 F 61 18 127/86 99 11/24/18 08:02 11/24/18 08:02 11/24/18 08:02 11/24/18 08:02 11/24/18 08:02 Intake and Output: 11/24/18 11/24/18 06:59 18:59 Intake Total 840 Output Total 700 Balance 140 - Medications Medications: Current Medications Levetiracetam 750 mg/ Sodium (Chloride) 107.5 mls @ 215 mls/hr IVPB Q12 [facility]ANDA Last Admin: 11/23/18 22:25 Dose: 215 mls/hr Vancomycin HCl 1.25 gm/ Sodium (Chloride) 500 mls @ 167 mls/hr IVPB Q12H [facility]ANDA; Protocol Last Admin: 11/23/18 22:25 Dose: 167 mls/hr Insulin Detemir (Levemir) 5 unit SC HS [facility] Last Admin: 11/23/18 22:26 Dose: 5 unit Insulin Human Lispro (Humalog Med) 0 units SC ACHS B[facility]ANDA; Protocol Last Admin: 11/23/18 22:24 Dose: Not Given Lorazepam (Ativan) 1 mg IVP DAILY PRN; Protocol PRN Reason: Seizure activity Methadone HCl (Methadone) 10 mg PO TID PRN PRN Reason: Opioid withdrawal Last Admin: 11/23/18 22:27 Dose: 10 mg Mupirocin (Bactroban Ointment) 0 gm TOP BID B[facility]ANDA Last Admin: 11/23/18 18:20 Dose: 1 appl Ondansetron HCl (Zofran Inj) 4 mg IVP Q6H PRN PRN Reason: Nausea/Vomiting Last Admin: 11/23/18 09:36 Dose: 4 mg - Labs Labs: 11/23/18 08:30 11/23/18 09:20 PT 11.3 SECONDS (9.4-12.5) 11/20/18 11:45 INR 1.00 11/20/18 11:45 APTT 27.7 Seconds (26.9-38.3) 11/20/18 11:45 - Constitutional Appears: Non-toxic, No Acute Distress - Head Exam Head Exam: ATRAUMATIC, NORMOCEPHALIC - Eye Exam Eye Exam: EOMI - ENT Exam ENT Exam: Mucous Membranes Moist - Neck Exam Neck Exam: Full ROM - Respiratory Exam Respiratory Exam: NORMAL BREATHING PATTERN. absent: Accessory Muscle Use, Respiratory Distress - GI/Abdominal Exam GI & Abdominal Exam: Soft. absent: Distended, Firm, Guarding, Rigid, Tenderness - Extremities Exam Additional comments: LUE s/p I&D of L dorsal forearm, no drainage, +surrounding edema, +open ulcer L elbow - Neurological Exam Neurological Exam: Alert, Awake, Oriented x3 - Psychiatric Exam Psychiatric exam: Normal Affect, Normal Mood Assessment and Plan - Assessment and Plan (Free Text) Assessment: 53M w. hx of IVDA w. L forearm/elbow abscess, s/p I&D, POD#2 -CT LUE reviewed, phlegmonous changes noted -c/w abx per ID -local wound care -will follow -d/w attending Zemaitis PGY4
[2018-11-24 08:41] LABS: BASO # 0.01 K/mm3 (0.0-2.0); BASO % 0.1 % (0.0-3.0); EOS # 0.4 (0.0-0.7); EOS % 4.4 % (1.5-5.0); HEMOGLOBIN 13.8 g/dL (14.0-18.0); LYMPH # 1.8 (1.2-3.4); MEAN CELL VOLUME 83.9 fl (80.0-105.0); MEAN CORPUSCULAR HEMOGLOBIN 27.8 pg (25.0-35.0); MEAN CORPUSCULAR HGB CONC 33.1 g/dl (31.0-37.0); MEAN PLATELET VOLUME 9.6 fl (7.0-11.0); MONO # 0.4 (0.1-0.6); MONO % 4.8 % (1.0-6.0); RBC 4.97 10^6/uL (3.5-6.1); RED CELL DISTRIBUTION WIDTH 12.9 % (11.5-14.5); WHITE BLOOD COUNT 8.1 10^3/uL (4.5-11.0)
[2018-11-24] MEDS: Insulin Lispro (humaLOG) MEDIUM Coverage SC SCH ×3 (08:43→17:43)
[2018-11-24 09:10] LABS: ALB/GLOB RATIO 0.9 (1.1-1.8); ALBUMIN 3.3 g/dL (3.0-4.8); ALT/SGPT 9 U/L (7-56); AST/SGOT 14 U/L (17-59); BLOOD UREA NITROGEN 8 mg/dL (7-21); CALCIUM 8.9 mg/dL (8.4-10.5); GFR NON-AFRICAN AMERICAN > 60
[2018-11-24] MEDS: Mupirocin 2% Ointment 15 GM TUBE TOP SCH ×2 (09:45→17:44)
[2018-11-24] MEDS: Vancomycin 1.25 GM in Sodium Chloride 0.9% 500 ML IVPB SCH ×2 (09:45→21:18)
--- NOTE | 2018-11-24 12:50 | CARDCATH ---
PROCEDURE DATE: 11/24/2018 The patient is a 53-year-old -[place] male with history of bipolar disorder, polysubstance abuse dependant including heroin and cocaine, who was admitted on the medical site for hypoglycemia and dizziness. The patient also was associated infection and fever. Psychiatrist following up with the patient, the patient was refusing to have treatment and has anxiety, refused to have an interview with Dr. Awan, though did request the Psychiatric consultation. This provider interviewed with the patient at bedside this morning and the patient is more agreeable. He reports current depression, frustration with in history of opioid and cocaine use control. Denies any suicidal thoughts, requests stabilization on the psychiatric unit as he is not currently on any psychiatric treatment. PSYCHIATRIC HISTORY: The patient was hospitalized on 05/[address] Yoo, diagnoses of bipolar disorder, substance induced mood disorder, opioid dependency. The patient is not currently in any psychiatric treatment. The patient reports history of suicide attempts in the past. SOCIAL HISTORY: The patient has 30 plus history of heroin and cocaine use. The patient is homeless. He lost his fiance and daughter from a driving accident many years ago. He was born and raised in [place]. IMPRESSION: Mood disorder, not otherwise specified, substance use mood disorder and opioid dependency. RECOMMENDATIONS: We will continue with current treatment of Ativan and methadone. This provider will start Celexa 10 mg daily, Seroquel 25 mg at bedtime to help with sleep and mood control. We will continue followup with patient, the patient is agreeable to be transferred to psychiatric unit he is medically stabilized and should be transferred at that time. Margaret Gordon MD
--- NOTE | 2018-11-24 13:23 | CP.PCM.PN ---
<Slim Arriola - Last Filed: 11/24/18 13:34> Subjective - Date & Time of Evaluation Date of Evaluation: 11/24/18 Time of Evaluation: 09:30 - Subjective Subjective: Slim Arriola DO, PGY-1 Hospitalist Progress Note for Dr. Dowling Patient was seen and examined at bedside this AM. He offers no new complaints th is AM and states his LUE pain and swelling have improved. He denies fever/chills, CP, SOB, abdominal pain/nausea/vomiting, or urinary complaints. Objective - Vital Signs/Intake and Output Vital Signs (last 24 hours): Temp Pulse Resp BP Pulse Ox 98.8 F 61 18 127/86 99 11/24/18 08:02 11/24/18 08:02 11/24/18 08:02 11/24/18 08:02 11/24/18 08:02 Intake and Output: 11/24/18 11/24/18 06:59 18:59 Intake Total 840 Output Total 700 Balance 140 - Medications Medications: Current Medications Citalopram Hydrobromide (Celexa) 10 mg PO DAILY B[facility]ANDA Levetiracetam 750 mg/ Sodium (Chloride) 107.5 mls @ 215 mls/hr IVPB Q12 [facility]ANDA Last Admin: 11/24/18 09:44 Dose: 215 mls/hr Vancomycin HCl 1.25 gm/ Sodium (Chloride) 500 mls @ 167 mls/hr IVPB Q12H BRIANDA; Protocol Last Admin: 11/24/18 09:45 Dose: 167 mls/hr Insulin Detemir (Levemir) 5 unit SC HS [facility] Last Admin: 11/23/18 22:26 Dose: 5 unit Insulin Human Lispro (Humalog Med) 0 units SC ACHS BRIANDA; Protocol Last Admin: 11/24/18 12:33 Dose: 5 unit Lorazepam (Ativan) 1 mg IVP DAILY PRN; Protocol PRN Reason: Seizure activity Methadone HCl (Methadone) 10 mg PO TID PRN PRN Reason: Opioid withdrawal Last Admin: 11/23/18 22:27 Dose: 10 mg Mupirocin (Bactroban Ointment) 0 gm TOP BID [facility] Last Admin: 11/24/18 09:45 Dose: 1 appl Ondansetron HCl (Zofran Inj) 4 mg IVP Q6H PRN PRN Reason: Nausea/Vomiting Last Admin: 11/23/18 09:36 Dose: 4 mg Quetiapine Fumarate (Seroquel) 25 mg PO HS BRIANDA; Protocol - Labs Labs: 11/24/18 08:30 11/24/18 08:30 PT 11.3 SECONDS (9.4-12.5) 11/20/18 11:45 INR 1.00 11/20/18 11:45 APTT 27.7 Seconds (26.9-38.3) 11/20/18 11:45 - Constitutional Appears: Non-toxic, No Acute Distress - Head Exam Head Exam: ATRAUMATIC, NORMOCEPHALIC - Eye Exam Eye Exam: EOMI, PERRL - ENT Exam ENT Exam: Mucous Membranes Moist - Neck Exam Neck Exam: Full ROM, Normal Inspection - Respiratory Exam Respiratory Exam: Clear to Ausculation Bilateral, NORMAL BREATHING PATTERN. absent: Rales, Rhonchi, Wheezes - Cardiovascular Exam Cardiovascular Exam: REGULAR RHYTHM, RRR. absent: Gallop, Rubs, Murmur - GI/Abdominal Exam GI & Abdominal Exam: Soft, Normal Bowel Sounds. absent: Guarding, Tenderness - Extremities Exam Additional comments: LUE wound with dressing in place and minimal surrounding erythema - Neurological Exam Neurological Exam: Alert, Awake, Oriented x3 - Psychiatric Exam Psychiatric exam: Normal Affect, Normal Mood - Skin Skin Exam: Dry, Intact, Warm Assessment and Plan - Assessment and Plan (Free Text) Assessment: 53 yo M with PMH of HTN, DM2, untreated Hep C, unspecified seizure disorder, and polysubstance abuse presented to ED with altered mental status 2/2 seizure vs stroke vs polysubstance abuse. He was subsequently admitted for additional management of altered mental status and LUE wound/cellulitis from IVDA. Plan: LUE Wound 2/[address] LUE completed showed findings consistent with myositis in extensor carpi radialis muscle but no signs of acute osteomyelitis Wound cx positive for MRSA, blood cx and urine cx negative x 4 days Patient is s/p I & D per surgery team 2 days ago On IV vancomycin day 5 Continue mupirocin ointment Continue contact pxns HIV negative Surgery, ID, psychiatry following, all recs appreciated Poorly Controlled DM2 A1c this admission 13.8 Increase Levemir to 10 mg HS Continue ISS-medium coverage, fingerstick glucose ACHS Altered mental status Resolved, was likely 2/2 IVDA vs seizure Continue Keppra 750 mg IVPB q12h for seizure ppx CT head negative for acute process on admission Continue seizure, aspiration pxns Substance abuse mood disorder Continue celexa, ativan, seroquel Psychiatry following, all recs appreciated Opioid dependence Continue methadone DVT PPX: SCD Full Code HHD Monitor on med/surg Patient seen, examined, and plan discussed with my attending Dr. Nitesh Arriola D.O. IM Resident PGY-1 Pager: [phone] <Dipika Dowling - Last Filed: 11/24/18 17:06> Objective - Vital Signs/Intake and Output Vital Signs (last 24 hours): Temp Pulse Resp BP Pulse Ox 98.8 F 61 18 127/86 99 11/24/18 08:02 11/24/18 08:02 11/24/18 08:02 11/24/18 08:02 11/24/18 08:02 Intake and Output: 11/24/18 11/24/18 06:59 18:59 Intake Total 840 Output Total 700 Balance 140 - Medications Medications: Current Medications Citalopram Hydrobromide (Celexa) 10 mg PO DAILY BRIANDA Levetiracetam 750 mg/ Sodium (Chloride) 107.5 mls @ 215 mls/hr IVPB Q12 [facility]ANDA Last Admin: 11/24/18 09:44 Dose: 215 mls/hr Vancomycin HCl 1.25 gm/ Sodium (Chloride) 500 mls @ 167 mls/hr IVPB Q12H [facility]RIANDA; Protocol Last Admin: 11/24/18 09:45 Dose: 167 mls/hr Insulin Detemir (Levemir) 10 unit SC HS B[facility]ANDA Insulin Human Lispro (Humalog Med) 0 units SC ACHS BRIANDA; Protocol Last Admin: 11/24/18 12:33 Dose: 5 unit Lorazepam (Ativan) 1 mg IVP DAILY PRN; Protocol PRN Reason: Seizure activity Methadone HCl (Methadone) 10 mg PO TID PRN PRN Reason: Opioid withdrawal Last Admin: 11/23/18 22:27 Dose: 10 mg Mupirocin (Bactroban Ointment) 0 gm TOP BID [facility]ANDA Last Admin: 11/24/18 09:45 Dose: 1 appl Ondansetron HCl (Zofran Inj) 4 mg IVP Q6H PRN PRN Reason: Nausea/Vomiting Last Admin: 11/23/18 09:36 Dose: 4 mg Quetiapine Fumarate (Seroquel) 25 mg PO HS B[facility]ANDA; Protocol - Labs Labs: 11/24/18 08:30 11/24/18 08:30 PT 11.3 SECONDS (9.4-12.5) 11/20/18 11:45 INR 1.00 11/20/18 11:45 APTT 27.7 Seconds (26.9-38.3) 11/20/18 11:45 Attending/Attestation - Attestation I have personally seen and examined this patient.: Yes I have fully participated in the care of the patient.: Yes I have reviewed all pertinent clinical information, including history, physical exam and plan: Yes Notes (Text): 11/24/18 17:00 Attending note; Patient seen and examined with resident. more alert and awake s/p I and D. Dressing in place. No significant bleeding noted. Patient is a 53 year old male with a past medical history significant for HTN, DM, untreated Hepatitis C, Tobacco Use Disorder, Polysubstance Abuse (Heroin and Cocaine), IV drug abuse, history of abscess, noncompliant with follow-up and unspecified Seizure Disorder, presents to the ED via EMS for dizziness for x1 day duration and worsening left upper extremity wound for the past 2 weeks. 1. Dizziness/presyncope; mostly secondary to drug abuse. Patient is alert and awake. CT head is negative. 2. Diabetes uncontrolled/; secondary to noncompliance with follow-up. Continue IV fluids. Started on insulin. hemoglobin A1c is 13.8. 3. Left upper extremity open wound secondary to active IV drug abuse. Drug abuse cessation is advised. Currently with mild withdrawal symptoms. IV Ativan as needed ordered. Wound care evaluation appreciated. surgery evaluation appreciated. Ultrasound is negative for abscess. s/p I and D yesterday. CT scan of the left arm showed significant subcutaneous edema and myositis. No active osteomyelitis noted. Currently on IV vancomycin. Wound culture showed MRSA. Repeat wound culture is pending. On contact isolation. Will discuss with ID For antibiotics duration. 4. Heroin Abuse; complete cessation is strongly advised. Currently in withdrawal. Continue methadone as needed. Hepatitis C. needs to follow-up with [facility] hepatology clinic. 5. cocaine abuse; complete cessation is strongly advised. Continue IV Ativan. 6. Nausea and vomiting; resolving. continue Zofran as needed. Started on clear liquid diet. Continue IV fluids. 7. Noncompliance with follow-up. Case discussed with patient's sister in detail. Sisters agreeing to help to get him sober. protective services social worker evaluation for drug rehab appreciated. Patient will be going back to living with his sister upon discharge. Will follow up with psychiatric recommendation. Possible transfer to psychiatric floor if patient is willing to sign in. Prognosis is poor secondary to continuous drug abuse and noncompliance with follow-up. Upon discharge the patient will follow up With PMD Dr. Hargrove. 11/24/18 17:05
[2018-11-24] MEDS ORDERED: Insulin Detemir 100 units/ml Vial (Levemir) SC SCH (13:45)
--- NOTE | 2018-11-24 18:54 | PN ---
DATE: 11/24/2018 SUBJECTIVE: The patient . PHYSICAL EXAMINATION: VITAL SIGNS: Temperature is 98, blood pressure is 120/80, respiratory rate of 20, heart rate of 64. HEENT: Unremarkable. NECK: Supple. LUNGS: Have decreased breath sounds. HEART: Normal S1 and S2. ABDOMEN: Soft. LABORATORY EXAMINATION: Reveals a white count of 8.1, hemoglobin of 13, platelets of 254. BUN of 8, creatinine of 0.6. Urinalysis is noted. Toxicology is noted. HIV is negative. Microbiology is noted. Left arm cultures MRSA. The blood cultures are negative. REVIEW OF ORDERS: Reveals the patient to be on vancomycin. The patient's last creatinine from today is 0.6. ASSESSMENT AND PLAN: This is a 53-year-old male with a left arm infected wound and skin and skin structure infection with methicillin-resistant Staphylococcus aureus, status post incision and drainage in a patient with hypertension, diabetes, hepatitis C, polysubstance abuse. Day #3 of vancomycin and ordered a vancomycin trough level. Review of orders reveals the patient to be on vancomycin 09:30 in the morning and 09:30 at night. We will order a vancomycin trough level for tomorrow morning at 08:30 in the morning an hour before 09:30 dose. The patient is on vancomycin and tolerating the medication well. We will follow with you. Brennan Kline MD
[2018-11-25] MEDS: Insulin Lispro (humaLOG) MEDIUM Coverage SC SCH ×3 (08:23→22:01)
[2018-11-25 08:37] LABS: BASO # 0.01 K/mm3 (0.0-2.0); BASO % 0.1 % (0.0-3.0); EOS # 0.3 (0.0-0.7); EOS % 2.5 % (1.5-5.0); HEMOGLOBIN 13.6 g/dL (14.0-18.0); LYMPH # 2.2 (1.2-3.4); LYMPH % 20.6 % (22.0-35.0); MEAN CELL VOLUME 84.2 fl (80.0-105.0); MEAN CORPUSCULAR HEMOGLOBIN 27.9 pg (25.0-35.0); MEAN CORPUSCULAR HGB CONC 33.1 g/dl (31.0-37.0); MEAN PLATELET VOLUME 9.4 fl (7.0-11.0); MONO # 0.5 (0.1-0.6); MONO % 4.2 % (1.0-6.0); RBC 4.88 10^6/uL (3.5-6.1); WHITE BLOOD COUNT 10.8 10^3/uL (4.5-11.0)
--- NOTE | 2018-11-25 08:45 | CP.PCM.PN ---
Subjective - Date & Time of Evaluation Date of Evaluation: 11/25/18 Time of Evaluation: 07:30 - Subjective Subjective: General Surgery Pt seen and examined. No issues overnight, no new complaints. Mild pain at wound sites. Objective - Vital Signs/Intake and Output Vital Signs (last 24 hours): Temp Pulse Resp BP Pulse Ox 98 F 64 20 132/93 H 98 11/25/18 07:47 11/25/18 07:47 11/25/18 07:47 11/25/18 07:47 11/25/18 07:47 Intake and Output: 11/25/18 11/25/18 06:59 18:59 Intake Total 120 Output Total 1150 Balance -1030 - Medications Medications: Current Medications Citalopram Hydrobromide (Celexa) 10 mg PO DAILY [facility]ANDA Levetiracetam 750 mg/ Sodium (Chloride) 107.5 mls @ 215 mls/hr IVPB Q12 [facility]DA Last Admin: 11/24/18 21:18 Dose: 215 mls/hr Vancomycin HCl 1.25 gm/ Sodium (Chloride) 500 mls @ 167 mls/hr IVPB Q12H [facility]ANDA; Protocol Last Admin: 11/24/18 21:18 Dose: 167 mls/hr Insulin Detemir (Levemir) 10 unit SC HS [facility]ANDA Last Admin: 11/24/18 21:20 Dose: 10 units Insulin Human Lispro (Humalog Med) 0 units SC ACHS BRIANDA; Protocol Last Admin: 11/25/18 08:23 Dose: 3 unit Lorazepam (Ativan) 1 mg IVP DAILY PRN; Protocol PRN Reason: Seizure activity Methadone HCl (Methadone) 10 mg PO TID PRN PRN Reason: Opioid withdrawal Last Admin: 11/23/18 22:27 Dose: 10 mg Mupirocin (Bactroban Ointment) 0 gm TOP BID [facility]ANDA Last Admin: 11/24/18 17:44 Dose: 1 appl Ondansetron HCl (Zofran Inj) 4 mg IVP Q6H PRN PRN Reason: Nausea/Vomiting Last Admin: 11/23/18 09:36 Dose: 4 mg Quetiapine Fumarate (Seroquel) 25 mg PO HS BRIANDA; Protocol Last Admin: 11/24/18 21:20 Dose: 25 mg - Labs Labs: 11/25/18 08:30 11/24/18 08:30 PT 11.3 SECONDS (9.4-12.5) 11/20/18 11:45 INR 1.00 11/20/18 11:45 APTT 27.7 Seconds (26.9-38.3) 11/20/18 11:45 - Constitutional Appears: Non-toxic, No Acute Distress - Head Exam Head Exam: ATRAUMATIC, NORMOCEPHALIC - Eye Exam Eye Exam: EOMI. absent: Scleral icterus - Respiratory Exam Respiratory Exam: NORMAL BREATHING PATTERN. absent: Respiratory Distress - GI/Abdominal Exam GI & Abdominal Exam: Soft. absent: Distended, Tenderness - Extremities Exam Additional comments: LUE s/p I&D of L dorsal forearm, no drainage, small fibrinous exudate, minimal surrounding edema +open ulcer L elbow - Neurological Exam Neurological Exam: Alert, Awake, Oriented x3 - Skin Skin Exam: Dry, Warm Assessment and Plan - Assessment and Plan (Free Text) Assessment: 53M w. hx of IVDA w. L forearm/elbow abscess, s/p I&D, POD#3 Plan: -c/w abx per ID -local wound care -will follow D/W Dr. Pio Ellis PGY4
[2018-11-25 09:01] LABS: ALB/GLOB RATIO 0.9 (1.1-1.8); ALBUMIN 3.4 g/dL (3.0-4.8); ALT/SGPT 6 U/L (7-56); AST/SGOT 13 U/L (17-59); BLOOD UREA NITROGEN 8 mg/dL (7-21); GFR NON-AFRICAN AMERICAN > 60
[2018-11-25] MEDS: Mupirocin 2% Ointment 15 GM TUBE TOP SCH ×2 (09:48→18:57)
[2018-11-25] MEDS: Vancomycin 1.25 GM in Sodium Chloride 0.9% 500 ML IVPB SCH ×2 (09:49→10:33)
[2018-11-25] MEDS: Ceftaroline 600 MG in Sodium Chloride 0.9% 100 ML IVPB SCH ×3 (11:19→22:00)
[2018-11-25] MEDS ORDERED: Insulin Detemir 100 units/ml Vial (Levemir) SC SCH (12:08)
--- NOTE | 2018-11-25 12:10 | CP.PCM.PN ---
<Slim Arriola - Last Filed: 11/25/18 12:03> Subjective - Date & Time of Evaluation Date of Evaluation: 11/25/18 Time of Evaluation: 08:40 - Subjective Subjective: Slim Arriola DO, PGY-1 Hospitalist Progress Note for Dr. Dowling Patient was seen and examined at bedside this AM. He reports no worsening of LUE swelling or pain. He states he would like to go home to his sister's house and is no longer interested in voluntary psych treatment. He otherwise offers no new complaints this AM and denies ever/chills, CP, SOB, abdominal pain/nausea/vomiting, or urinary complaints. Objective - Vital Signs/Intake and Output Vital Signs (last 24 hours): Temp Pulse Resp BP Pulse Ox 98 F 64 20 132/93 H 98 11/25/18 07:47 11/25/18 07:47 11/25/18 07:47 11/25/18 07:47 11/25/18 07:47 Intake and Output: 11/25/18 11/25/18 06:59 18:59 Intake Total 120 Output Total 1150 Balance -1030 - Medications Medications: Current Medications Citalopram Hydrobromide (Celexa) 10 mg PO DAILY [facility] Last Admin: 11/25/18 09:48 Dose: 10 mg Levetiracetam 750 mg/ Sodium (Chloride) 107.5 mls @ 215 mls/hr IVPB Q12 [facility] Last Admin: 11/25/18 09:49 Dose: 215 mls/hr Ceftaroline Fosamil 600 mg/ (Sodium Chloride) 100 mls @ 100 mls/hr IVPB Q12 [facility]; Protocol Stop: 12/02/18 10:26 Last Admin: 11/25/18 11:19 Dose: 100 mls/hr Insulin Detemir (Levemir) 10 unit SC HS [facility] Last Admin: 11/24/18 21:20 Dose: 10 units Insulin Human Lispro (Humalog Med) 0 units SC ACHS [facility]; Protocol Last Admin: 11/25/18 11:25 Dose: 1 unit Lorazepam (Ativan) 1 mg IVP DAILY PRN; Protocol PRN Reason: Seizure activity Methadone HCl (Methadone) 10 mg PO TID PRN PRN Reason: Opioid withdrawal Last Admin: 11/23/18 22:27 Dose: 10 mg Mupirocin (Bactroban Ointment) 0 gm TOP BID [facility] Last Admin: 11/25/18 09:48 Dose: 1 appl Ondansetron HCl (Zofran Inj) 4 mg IVP Q6H PRN PRN Reason: Nausea/Vomiting Last Admin: 11/23/18 09:36 Dose: 4 mg Quetiapine Fumarate (Seroquel) 25 mg PO HS [facility]; Protocol Last Admin: 11/24/18 21:20 Dose: 25 mg - Labs Labs: 11/25/18 08:30 11/25/18 08:30 PT 11.3 SECONDS (9.4-12.5) 11/20/18 11:45 INR 1.00 11/20/18 11:45 APTT 27.7 Seconds (26.9-38.3) 11/20/18 11:45 - Constitutional Appears: Non-toxic, No Acute Distress - Head Exam Head Exam: ATRAUMATIC, NORMOCEPHALIC - Eye Exam Eye Exam: EOMI, Normal appearance, PERRL - ENT Exam ENT Exam: Mucous Membranes Moist - Neck Exam Neck Exam: Full ROM, Normal Inspection - Respiratory Exam Respiratory Exam: Clear to Ausculation Bilateral, NORMAL BREATHING PATTERN. absent: Rales, Rhonchi, Wheezes - Cardiovascular Exam Cardiovascular Exam: REGULAR RHYTHM, RRR, +S1, +S2. absent: Gallop, Rubs, Murmur - GI/Abdominal Exam GI & Abdominal Exam: Soft, Normal Bowel Sounds. absent: Guarding, Tenderness - Extremities Exam Extremities Exam: Full ROM. absent: Pedal Edema Additional comments: LUE wound with dressing in place and minimal surrounding erythema - Back Exam Back Exam: NORMAL INSPECTION - Neurological Exam Neurological Exam: Alert, Awake, Oriented x3 - Psychiatric Exam Psychiatric exam: Normal Affect, Normal Mood - Skin Skin Exam: Dry, Intact, Warm Assessment and Plan - Assessment and Plan (Free Text) Assessment: 53 yo M with PMH of HTN, DM2, untreated Hep C, unspecified seizure disorder, and polysubstance abuse presented to ED with altered mental status 2/2 seizure vs stroke vs polysubstance abuse. He was subsequently admitted for additional management of altered mental status and LUE wound/cellulitis from IVDA. He has been accepted by psych for additional management but patient may not be able to be transferred due to isolation for MRSA. Now patient states he does not want to go to psych and would rather be discharged home when ready. Plan: LUE Wound 2/[address] LUE completed showed findings consistent with myositis in extensor carpi radialis muscle but no signs of acute osteomyelitis Wound cx positive for MRSA, blood cx and urine cx negative to date Patient is s/p I & D per surgery team 3 days ago Received 5 days of vancomycin, now on Ceftaroline Continue mupirocin ointment Continue contact pxns HIV negative Surgery, ID, psychiatry following, all recs appreciated Poorly Controlled DM2 A1c this admission 13.8 Blood sugars overnight improved, but still elevated Further increase levemir to 15 units HS Continue ISS-medium coverage, fingerstick glucose ACHS Altered mental status Resolved, was likely 2/2 IVDA vs seizure Continue Keppra 750 mg IVPB q12h for seizure ppx CT head negative for acute process on admission Continue seizure, aspiration pxns Substance abuse mood disorder Continue celexa, ativan, seroquel Was accepted by psych for additional treatment but may not have been able to go due to isolation from MRSA Patient now states he does not want to go to psych and would rather go to his sister's house after discharge Psychiatry following, all recs appreciated Opioid dependence Continue methadone DVT PPX: SCD Full Code HHD Monitor on med/surg Patient seen, examined, and plan discussed with my attending Dr. Nitesh Arriola, D.O. IM Resident PGY-1 Pager: [phone] <Dipika Dowling - Last Filed: 11/25/18 13:41> Objective - Vital Signs/Intake and Output Vital Signs (last 24 hours): Temp Pulse Resp BP Pulse Ox 98 F 64 20 132/93 H 98 11/25/18 07:47 11/25/18 07:47 11/25/18 07:47 11/25/18 07:47 11/25/18 07:47 Intake and Output: 11/25/18 11/25/18 06:59 18:59 Intake Total 120 Output Total 1150 Balance -1030 - Medications Medications: Current Medications Citalopram Hydrobromide (Celexa) 10 mg PO DAILY [facility] Last Admin: 11/25/18 09:48 Dose: 10 mg Levetiracetam 750 mg/ Sodium (Chloride) 107.5 mls @ 215 mls/hr IVPB Q12 [facility] Last Admin: 11/25/18 09:49 Dose: 215 mls/hr Ceftaroline Fosamil 600 mg/ (Sodium Chloride) 100 mls @ 100 mls/hr IVPB Q12 [facility]; Protocol Stop: 12/02/18 10:26 Last Admin: 11/25/18 11:19 Dose: 100 mls/hr Insulin Detemir (Levemir) 15 unit SC HS [facility] Insulin Human Lispro (Humalog Med) 0 units SC ACHS [facility]; Protocol Last Admin: 11/25/18 11:25 Dose: 1 unit Lorazepam (Ativan) 1 mg IVP DAILY PRN; Protocol PRN Reason: Seizure activity Methadone HCl (Methadone) 10 mg PO TID PRN PRN Reason: Opioid withdrawal Last Admin: 11/23/18 22:27 Dose: 10 mg Mupirocin (Bactroban Ointment) 0 gm TOP BID [facility] Last Admin: 11/25/18 09:48 Dose: 1 appl Ondansetron HCl (Zofran Inj) 4 mg IVP Q6H PRN PRN Reason: Nausea/Vomiting Last Admin: 11/23/18 09:36 Dose: 4 mg Quetiapine Fumarate (Seroquel) 25 mg PO HS [facility]; Protocol Last Admin: 11/24/18 21:20 Dose: 25 mg - Labs Labs: 11/25/18 08:30 11/25/18 08:30 PT 11.3 SECONDS (9.4-12.5) 11/20/18 11:45 INR 1.00 11/20/18 11:45 APTT 27.7 Seconds (26.9-38.3) 11/20/18 11:45 Attending/Attestation - Attestation I have personally seen and examined this patient.: Yes I have fully participated in the care of the patient.: Yes I have reviewed all pertinent clinical information, including history, physical exam and plan: Yes Notes (Text): 11/25/18 13:39 Attending note; Patient seen and examined with resident. more alert and awake s/p I and D. Dressing in place. No significant bleeding noted. Patient is a 53 year old male with a past medical history significant for HTN, DM, untreated Hepatitis C, Tobacco Use Disorder, Polysubstance Abuse (Heroin and Cocaine), IV drug abuse, history of abscess, noncompliant with follow-up and unspecified Seizure Disorder, presents to the ED via EMS for dizziness for x1 day duration and worsening left upper extremity wound for the past 2 weeks. 1. Dizziness/presyncope; resolved.mostly secondary to drug abuse. Patient is alert and awake. CT head is negative. 2. Diabetes uncontrolled/; secondary to noncompliance with follow-up. Continue IV fluids. Started on insulin. hemoglobin A1c is 13.8. 3. Left upper extremity open wound secondary to active IV drug abuse. Drug abuse cessation is advised. Currently with mild withdrawal symptoms. IV Ativan as needed ordered. Wound care evaluation appreciated. surgery evaluation appreciated. Ultrasound is negative for abscess. s/p I and D yesterday. CT scan of the left arm showed significant subcutaneous edema and myositis. No active osteomyelitis noted. Currently on IV vancomycin. Wound culture showed MRSA. Repeat wound culture is negative so far. On contact isolation. 4. Heroin Abuse; complete cessation is strongly advised. Currently in withdrawal. Continue methadone as needed. Hepatitis C. needs to follow-up with [facility] hepatology clinic. 5. cocaine abuse; complete cessation is strongly advised. Continue IV Ativan. 6. Nausea and vomiting; resolving. continue Zofran as needed. tolerating regular diet. 7. Noncompliance with follow-up. Case discussed with patient's sister in detail. Sisters agreeing to help to get him sober. social work professor evaluation for drug rehab appreciated. Patient will be going back to living with his sister upon discharge. Will follow up with psychiatric recommendation. Possible transfer to psychiatric floor if patient is willing to sign in. Patient is currently on contact isolation. Prognosis is poor secondary to continuous drug abuse and noncompliance with follow-up. Upon discharge the patient will follow up With PMD Dr. Hargrove. 11/24/18 17:05 11/25/18 13:40
--- NOTE | 2018-11-25 23:29 | CON ---
DATE: 11/25/2018 HISTORY OF PRESENT ILLNESS: The patient is a 53-year-old male with history of bipolar disorder, polysubstance dependency including heroin and cocaine, who was admitted on the medical site for which psychiatry sis following up for depression and anxiety. I interviewed the patient at bedside yesterday and the patient reported that he was depressed and he was superficially agreeable to transfer to the Psychiatric Unit once he was medically stabilized; however today, he reports preference to be transferred directly to rehab once he is medically stabilized. He continues to deny any suicidal thoughts. He denies any hallucination. There have been no major behavioral issues on the medical floor when the staff notes were reviewed. He is calm. Affect is constricted. He is mildly irritable. This is consistent with opioids and his opiate withdrawal symptoms at this time. Insight and judgment are considered to be fair. He is not acute danger to himself. IMPRESSION: Mood disorder, not otherwise specified, substance use mood disorder and opioid and cocaine dependency. PLAN: We will continue with Celexa 10 mg daily. The patient is tolerating well and increase Seroquel to 50 mg at bedtime to help with sleep and mood control. The patient should go to rehab once he is medically stabilized. He defers from any psychiatric inpatient admission at this time. Psychiatry will sign off. Margaret Gordon MD
--- NOTE | 2018-11-26 07:37 | CP.PCM.PN ---
Subjective - Date & Time of Evaluation Date of Evaluation: 11/26/18 Time of Evaluation: 07:00 - Subjective Subjective: Raj Vanegas, PGY-[address] Suero Patient seen and evaluated at bedside. No acute events reported overnight. Reports mild pain at L elbow wound site but otherwise tolerating diet, passing BM and flatus. Dressing changed this AM. Objective - Vital Signs/Intake and Output Vital Signs (last 24 hours): Temp Pulse Resp BP Pulse Ox 98.3 F 66 20 135/90 95 11/25/18 19:50 11/25/18 19:50 11/25/18 19:50 11/25/18 19:50 11/25/18 19:50 - Medications Medications: Current Medications Citalopram Hydrobromide (Celexa) 10 mg PO DAILY [facility] Last Admin: 11/25/18 09:48 Dose: 10 mg Levetiracetam 750 mg/ Sodium (Chloride) 107.5 mls @ 215 mls/hr IVPB Q12 [facility] Last Admin: 11/25/18 23:09 Dose: Not Given Ceftaroline Fosamil 600 mg/ (Sodium Chloride) 100 mls @ 100 mls/hr IVPB Q12 [facility]; Protocol Stop: 12/02/18 10:26 Last Admin: 11/25/18 22:00 Dose: Not Given Insulin Detemir (Levemir) 15 unit SC HS [facility] Last Admin: 11/25/18 22:01 Dose: 15 units Insulin Human Lispro (Humalog Med) 0 units SC [facility]; Protocol Last Admin: 11/25/18 22:01 Dose: Not Given Lorazepam (Ativan) 1 mg IVP DAILY PRN; Protocol PRN Reason: Seizure activity Methadone HCl (Methadone) 10 mg PO TID PRN PRN Reason: Opioid withdrawal Last Admin: 11/23/18 22:27 Dose: 10 mg Mupirocin (Bactroban Ointment) 0 gm TOP BID [facility] Last Admin: 11/25/18 18:57 Dose: 1 appl Ondansetron HCl (Zofran Inj) 4 mg IVP Q6H PRN PRN Reason: Nausea/Vomiting Last Admin: 11/23/18 09:36 Dose: 4 mg Quetiapine Fumarate (Seroquel) 50 mg PO HS [facility]; Protocol Last Admin: 11/25/18 22:00 Dose: 50 mg - Labs Labs: 11/25/18 08:30 11/25/18 08:30 PT 11.3 SECONDS (9.4-12.5) 11/20/18 11:45 INR 1.00 11/20/18 11:45 APTT 27.7 Seconds (26.9-38.3) 11/20/18 11:45 - Additional Findings Additional findings: - Constitutional Appears: Non-toxic, No Acute Distress - Head Exam Head Exam: ATRAUMATIC, NORMOCEPHALIC - Eye Exam Eye Exam: EOMI. absent: Scleral icterus - Respiratory Exam Respiratory Exam: NORMAL BREATHING PATTERN. absent: Respiratory Distress - GI/Abdominal Exam GI & Abdominal Exam: Soft. absent: Distended, Tenderness - Extremities Exam Additional comments: LUE s/p I&D of L dorsal forearm, no drainage, small fibrinous exudate, minimal surrounding edema +open ulcer L elbow, dressing changed this AM - Neurological Exam Neurological Exam: Alert, Awake, Oriented x3 - Skin Skin Exam: Dry, Warm Assessment and Plan - Assessment and Plan (Free Text) Assessment: 53M with hx of IVDA w. L forearm/elbow abscess, s/p I&D, POD#4 Plan: -c/w ABx per ID -local wound care -ok to DC from surgical perspective Further recs per Dr. Pio Vanegas, PGY-1
[2018-11-26] MEDS: Insulin Lispro (humaLOG) MEDIUM Coverage SC SCH ×5 (08:30→21:15)
--- NOTE | 2018-11-26 09:12 | PN ---
DATE: 11/25/2018 SUBJECTIVE: The patient is in bed in no acute distress, nontoxic. No fevers and chills. PHYSICAL EXAMINATION: VITAL SIGNS: Temperature is 98, blood pressure is 132/93, respiratory rate of 20, heart rate of 64. HEENT: Unremarkable. NECK: Supple. LUNGS: Have decreased breath sounds. HEART: Normal S1, S2. ABDOMEN: Soft, nontender. LABORATORY EXAMINATION: Reveals a white count of 10,000, hemoglobin of 13, platelets of 261, BUN of 8, creatinine of 0.7. Urinalysis is noted and vanco trough is 8.8. Serology HIV is negative. Microbiology reveals left arm MRSA. Blood cultures are negative. Urine cultures negative. Review of orders reveals the patient to be on vancomycin, vanco trough level of 8.8. The patient is also on Ativan, Celexa, Keppra, insulin, methadone, Seroquel. ASSESSMENT AND PLAN: This is a 53-year-old male with a left arm infected wound and skin, skin structure infection with methicillin-resistant Staphylococcus aureus, status post incision and drainage in a patient with hypertension, diabetic, hepatitis C, polysubstance abuse, day #4 of vancomycin with inadequate vanco trough level on high dose and the patient who was on Seroquel, unable to use Zyvox, who ALLERGIC TO COCONUT AND TOMATO. We will discontinue the vancomycin due to the inadequate level with a high dose of 1.25 g every 12 hours and we will use Teflaro 600 mg. We will follow with you. Brennan Kline MD
[2018-11-26 10:00] LABS: BASO # 0.01 K/mm3 (0.0-2.0); BASO % 0.1 % (0.0-3.0); EOS # 0.1 (0.0-0.7); EOS % 1.4 % (1.5-5.0); HEMOGLOBIN 14.6 g/dL (14.0-18.0); LYMPH # 1.6 (1.2-3.4); LYMPH % 20.7 % (22.0-35.0); MEAN CELL VOLUME 83.9 fl (80.0-105.0); MEAN CORPUSCULAR HEMOGLOBIN 27.7 pg (25.0-35.0); MONO # 0.2 (0.1-0.6); MONO % 3.1 % (1.0-6.0); RBC 5.27 10^6/uL (3.5-6.1); RED CELL DISTRIBUTION WIDTH 13.1 % (11.5-14.5); WHITE BLOOD COUNT 7.9 10^3/uL (4.5-11.0)
[2018-11-26] MEDS: Mupirocin 2% Ointment 15 GM TUBE TOP SCH ×2 (10:00→18:41)
[2018-11-26 10:09] LABS: ALBUMIN 3.7 g/dL (3.0-4.8); ALT/SGPT 12 U/L (7-56); AST/SGOT 15 U/L (17-59); BLOOD UREA NITROGEN 11 mg/dL (7-21); CALCIUM 9.3 mg/dL (8.4-10.5); GFR NON-AFRICAN AMERICAN > 60
[2018-11-26] MEDS: Ceftaroline 600 MG in Sodium Chloride 0.9% 100 ML IVPB SCH ×3 (10:53→21:25)
--- NOTE | 2018-11-26 11:24 | PCM.FALL ---
<NorbertoxanaAddy - Last Filed: 11/26/18 11:18> Post Fall Progress Note - Post Fall Fall Date: 11/26/18 Fall Time: 10:55 Description of Fall: Patient eloped from room 363-2. Patient went to front entrance of hospital to have cigarette. Patient reports while smoking his cigararette he felt a weakness in his lower extremities bilaterally. He was unable to stay upright on his feet and had an unwitnessed conrtolled fall where he was able to brace his impact with his upper extremiites. Patient was able to stand up immediately following event and ambulated into the front lobby of the hospital where he fell again. Patient denies syncope, changes in vision, urinary/bowel incontinence, confusion, biting of the tongue, neurological deficiits, facial trauma, chest pain, abdominal pain, pain associated with upper/lower extremities. Patient does indicate while bracing for impact he did strike the right side of his head. He reports tenderness to palpation. - Post Fall Exam Vital Sign: Temp Pulse Resp BP Pulse Ox 98 F 66 20 140/89 100 11/26/18 08:00 11/26/18 08:00 11/26/18 08:00 11/26/18 08:00 11/26/18 08:00 Skull Exam: Negative for: Scalp wound, Scalp hematoma, Scalp depression, Ridge in skull Eye Exam: Positive for: Pupils equal Ear Exam: Negative for: Discharge, Bleeding Nose Exam: Negative for: Discharge, Bleeding Skin Exam: Negative for: Lacerations Mouth Exam: Negative for: Tongue bitten, Teeth dislodge Neck Exam: Negative for: Tenderness, Tingling, Weakness Spinal Exam: Negative for: Tenderness Chest Exam: Negative for: Difficulty breathing Abdomen Exam: Negative for: Tenderness Pelvic Exam: Negative for: Tenderness Arm Exam: Negative for: Deformity Leg Exam: Negative for: Deformity Impression/Plan: Mechanical Fall - AAOx3, motor and sensory grossly intact - Strength grossly intact in all four extremities - Head CT w/o contrast stat for evaluation - Fall risk precautions - Consider PT follow up/eval <Caridad Fuentes R - Last Filed: 11/28/18 20:49> Post Fall Progress Note - Post Fall Exam Vital Sign: Temp Pulse Resp BP Pulse Ox 97.5 F L 70 18 104/67 100 11/28/18 06:00 11/28/18 06:00 11/28/18 06:00 11/28/18 06:00 11/28/18 06:00 Attending/Attestation - Attestation I have personally seen and examined this patient.: Yes I have fully participated in the care of the patient.: Yes I have reviewed all pertinent clinical information, including history, physical exam and plan: Yes Notes (Text): Agree with above. Patient denies any pain. however, states he thinks he may have hit his head. Complains of tenderness when right side of scalp palpated. Head CT ordered. Patient counseled on not being able to leave the floor and can not smoke in the hospital. Patient placed on fall precautions and PT ordered.
--- NOTE | 2018-11-26 16:13 | CP.PCM.PN ---
Subjective - Date & Time of Evaluation Date of Evaluation: 11/26/18 Time of Evaluation: 11:00 - Subjective Subjective: No fevers, not in distress. Objective - Vital Signs/Intake and Output Vital Signs (last 24 hours): Temp Pulse Resp BP Pulse Ox 98.3 F 66 20 135/90 95 11/25/18 19:50 11/25/18 19:50 11/25/18 19:50 11/25/18 19:50 11/25/18 19:50 - Medications Medications: Current Medications Citalopram Hydrobromide (Celexa) 10 mg PO DAILY [facility] Last Admin: 11/25/18 09:48 Dose: 10 mg Levetiracetam 750 mg/ Sodium (Chloride) 107.5 mls @ 215 mls/hr IVPB Q12 [facility] Last Admin: 11/25/18 21:59 Dose: 215 mls/hr Ceftaroline Fosamil 600 mg/ (Sodium Chloride) 100 mls @ 100 mls/hr IVPB Q12 [facility]; Protocol Stop: 12/02/18 10:26 Last Admin: 11/25/18 22:00 Dose: 100 mls/hr Insulin Detemir (Levemir) 15 unit SC [facility] Last Admin: 11/25/18 22:01 Dose: 15 units Insulin Human Lispro (Humalog Med) 0 units SC [facility]; Protocol Last Admin: 11/25/18 22:01 Dose: Not Given Lorazepam (Ativan) 1 mg IVP DAILY PRN; Protocol PRN Reason: Seizure activity Methadone HCl (Methadone) 10 mg PO TID PRN PRN Reason: Opioid withdrawal Last Admin: 11/23/18 22:27 Dose: 10 mg Mupirocin (Bactroban Ointment) 0 gm TOP BID [facility] Last Admin: 11/25/18 18:57 Dose: 1 appl Ondansetron HCl (Zofran Inj) 4 mg IVP Q6H PRN PRN Reason: Nausea/Vomiting Last Admin: 11/23/18 09:36 Dose: 4 mg Quetiapine Fumarate (Seroquel) 50 mg PO HS [facility]; Protocol Last Admin: 11/25/18 22:00 Dose: 50 mg - Labs Labs: 11/25/18 08:30 11/25/18 08:30 PT 11.3 SECONDS (9.4-12.5) 11/20/18 11:45 INR 1.00 11/20/18 11:45 APTT 27.7 Seconds (26.9-38.3) 11/20/18 11:45 - Constitutional Appears: Chronically Ill - Head Exam Head Exam: NORMAL INSPECTION - Respiratory Exam Respiratory Exam: Decreased Breath Sounds - Cardiovascular Exam Cardiovascular Exam: +S1, +S2 - GI/Abdominal Exam GI & Abdominal Exam: Soft. absent: Tenderness Assessment and Plan - Assessment and Plan (Free Text) Plan: Assessment Left arm infected wound/ skin and skin structure infection with MRSA, S/P I and D yesterday by surgery HTN DM untreated Hepatitis C chronic tobacco use polysubstance abuse seizure disorder Plan continue Teflaro day 2 ; initial wound cx are showing MRSA will continue to monitor clinically HIV test was negative in 09/2018 will need to see Hepatitis specialist as outpatient for his hepatitis C infection discussed with medical team - IV line difficult to obtain - may use Doxycycline for now
--- NOTE | 2018-11-26 16:59 | CP.PCM.PN ---
<Slim Arriola - Last Filed: 11/26/18 16:56> Subjective - Date & Time of Evaluation Date of Evaluation: 11/26/18 Time of Evaluation: 07:00 - Subjective Subjective: Slim Arriola DO, PGY-1 Hospitalist Progress Note for Dr. Irma Fuentes Patient was seen and examined at bedside this AM. He eloped from his room this AM and went outside the front lobby to smoke. He subsequently fell and code star was called. Patient was returned to his room and examined. Patient's situation was discussed with his sister who was also at bedside. He has no new complaints this AM and states he would like to go home with his sister. Objective - Vital Signs/Intake and Output Vital Signs (last 24 hours): Temp Pulse Resp BP Pulse Ox 98 F 66 20 140/89 100 11/26/18 08:00 11/26/18 08:00 11/26/18 08:00 11/26/18 08:00 11/26/18 08:00 - Medications Medications: Current Medications Citalopram Hydrobromide (Celexa) 10 mg PO DAILY [facility] Last Admin: 11/26/18 11:13 Dose: 10 mg Levetiracetam 750 mg/ Sodium (Chloride) 107.5 mls @ 215 mls/hr IVPB Q12 [facility] Last Admin: 11/25/18 23:09 Dose: Not Given Ceftaroline Fosamil 600 mg/ (Sodium Chloride) 100 mls @ 100 mls/hr IVPB Q12 [facility]; Protocol Stop: 12/02/18 10:26 Last Admin: 11/25/18 22:00 Dose: Not Given Insulin Detemir (Levemir) 15 unit SC HS [facility] Last Admin: 11/25/18 22:01 Dose: 15 units Insulin Human Lispro (Humalog Med) 0 units SC ACHS [facility]; Protocol Last Admin: 11/26/18 11:43 Dose: 3 unit Lorazepam (Ativan) 1 mg IVP DAILY PRN; Protocol PRN Reason: Seizure activity Methadone HCl (Methadone) 10 mg PO TID PRN PRN Reason: Opioid withdrawal Last Admin: 11/26/18 14:42 Dose: 10 mg Mupirocin (Bactroban Ointment) 0 gm TOP BID [facility] Last Admin: 11/25/18 18:57 Dose: 1 appl Ondansetron HCl (Zofran Inj) 4 mg IVP Q6H PRN PRN Reason: Nausea/Vomiting Last Admin: 11/23/18 09:36 Dose: 4 mg Quetiapine Fumarate (Seroquel) 50 mg PO HS [facility]; Protocol Last Admin: 11/25/18 22:00 Dose: 50 mg - Labs Labs: 11/26/18 09:30 11/26/18 09:30 PT 11.3 SECONDS (9.4-12.5) 11/20/18 11:45 INR 1.00 11/20/18 11:45 APTT 27.7 Seconds (26.9-38.3) 11/20/18 11:45 - Constitutional Appears: Non-toxic, No Acute Distress - Head Exam Head Exam: ATRAUMATIC, NORMOCEPHALIC - Eye Exam Eye Exam: EOMI, PERRL - ENT Exam ENT Exam: Mucous Membranes Moist - Neck Exam Neck Exam: Full ROM, Normal Inspection - Respiratory Exam Respiratory Exam: Clear to Ausculation Bilateral, NORMAL BREATHING PATTERN. absent: Rales, Rhonchi, Wheezes - Cardiovascular Exam Cardiovascular Exam: REGULAR RHYTHM, RRR, +S1, +S2. absent: Gallop, Rubs, Murmur - GI/Abdominal Exam GI & Abdominal Exam: Soft, Normal Bowel Sounds. absent: Guarding, Tenderness - Extremities Exam Extremities Exam: Full ROM, Normal Inspection. absent: Pedal Edema Additional comments: LUE wound with dressing in place and minimal surrounding erythema - Neurological Exam Neurological Exam: Alert, Awake, Oriented x3 - Psychiatric Exam Psychiatric exam: Normal Affect, Normal Mood - Skin Skin Exam: Dry, Intact, Warm Assessment and Plan - Assessment and Plan (Free Text) Assessment: 53 yo M with PMH of HTN, DM2, untreated Hep C, unspecified seizure disorder, and polysubstance abuse presented to ED with altered mental status 2/2 seizure vs stroke vs polysubstance abuse. He was subsequently admitted for additional management of altered mental status and LUE wound/cellulitis from IVDA. He has been accepted by psych for additional management but patient may not be able to be transferred due to isolation for MRSA. Now patient states he does not want to go to psych and would rather be discharged home when ready. Plan: LUE Wound 2/[address] LUE completed showed findings consistent with myositis in extensor carpi radialis muscle but no signs of acute osteomyelitis Wound cx positive for MRSA, other cultures negative Received one dose of ceftaroline but patient now refusing IV access and medications Continue mupirocin ointment applied to wound Case discussed with ID who state doxycycline would be best treatment at this point if patient is refusing IV medications Continue contact pxns per protocol Surgery, ID, psychiatry following, all recs appreciated Poorly Controlled DM2 A1c this admission 13.8, still hyperglycemic overnight Blood sugars overnight improved, but still elevated Is supposed to be on nightly levemir 12 units, but patient is likely non- compliant Increase levemir to 20 units nightly Continue ISS-medium coverage, fingerstick glucose ACHS Altered mental status Resolved, was likely 2/2 IVDA vs seizure Patient now refusing IV medications, will restart home tegretol [address] head negative for acute process on admission Continue seizure, aspiration pxns Substance abuse mood disorder Continue celexa, ativan, seroquel Patient now refusing psych admission, will likely go home with sister once cleared by PT Psychiatry following, all recs appreciated Opioid dependence Continue methadone DVT PPX: SCD Full Code HHD Monitor on med/surg Patient seen, examined, and plan discussed with my attending Dr. Irma Arriola D.O. IM Resident PGY-1 Pager: [phone] <Caridad Fuentes R - Last Filed: 11/28/18 20:39> Objective - Vital Signs/Intake and Output Vital Signs (last 24 hours): Temp Pulse Resp BP Pulse Ox 97.5 F L 70 18 104/67 100 11/28/18 06:00 11/28/18 06:00 11/28/18 06:00 11/28/18 06:00 11/28/18 06:00 - Labs Labs: 11/27/18 06:50 11/27/18 06:50 PT 11.3 SECONDS (9.4-12.5) 11/20/18 11:45 INR 1.00 11/20/18 11:45 APTT 27.7 Seconds (26.9-38.3) 11/20/18 11:45 Attending/Attestation - Attestation I have personally seen and examined this patient.: Yes I have fully participated in the care of the patient.: Yes I have reviewed all pertinent clinical information, including history, physical exam and plan: Yes Notes (Text): Patient seen and examined by me with resident at approximately 11:30 AM on 11/26/18. Case including HPI, physical exam, and assessment and plan discussed with resident. Agree with above with following additions/corrections. Patient is a 53 year old male with past medical history significant for hypertension, unspecified DM2, untreated hepatitis C, tobacco abuse, polysubstance abuse, and seizure disorder that presented to the emergency room with left upper extremity wound and dizziness. Patient states he is feeling a little short of breath today. Patient states he is waiting for his aspira cath to be drained. Continues to complains of pain at right upper back and shoulder. Pain medications are helping. Patient denies any pain at his aspira catheter site. No headaches, dizziness, or lightheadedness. No fevers or chills. No nausea, vomiting, or abdominal pain. No diarrhea or constipation. No dysuria or burning with urination. Physical exam: General: Awake and alert sitting up in bed in no acute distress. Cachectic appearing. HEENT: Normocephalic, atraumatic. Extraocular muscles intact, pupils equal and reactive, no scleral icterus. Oropharynx is pink and moist. No pharyngeal erythema or exudate appreciated. Neck is supple. Cardiovascular: Regular rhythm. Normal S1 and S2. No murmurs, rubs, or gallops appreciated Pulmonary: Normal respiratory effort. Decreased breath sounds on right. No rhonchi or wheezing appreciated. Positive aspira cath on right. Dressing, clean, dry, and intact. Gastrointestinal: Soft, nondistended. Nontender. Positive bowel sounds all 4 quadrants. No guarding. Musculoskeletal: Moves all extremities. No calf tenderness. No edema. Central nervous system: AAOx3. Dermatologic: Skin warm and dry. Assessment and plan: Patient is a 53 year old male with past medical history significant for hypertension, unspecified DM2, untreated hepatitis C, tobacco abuse, polysubstance abuse, and seizure disorder that presented to the emergency room with left upper extremity wound and dizziness. 1. Fall. Patient eloped and went outside to smoke where patient feel twice. CT head ordered. Patient denies hitting head but then says he is unsure. Physical therapy consulted. Fall precautions. 2. Left upper extremity wound. Secondary to IVDA. ID following, recommendations appreciated. Continue antibiotics per ID. Surgical team following, recommendations appreciated. Continue local wound care. Left upper extremity CT per radiologist showed phlegmonous process at the level of the proximal radius less than 1cm, adjacent cutaneous and subcutaneous edema, component of myositis, negative study for acute osteo. 3. DM2, poorly controlled. HgbA1C 13.8. Patient counseled on compliance with medications. Continue Levemir at bedtime. Continue insulin sliding scale. Continue to monitor accuchecks. 4. Seizure disorder. Continue Keppra. 5. Mood disorder. Psychiatrist following, recommendations appreciated. Patient refusing admission to psychiatric unit. Continue Celexa and seroquel 6. Opioid dependence. Patient counseled at length on cessation. Rehab infor mation provided to patient by case management. 7. Altered mental status. Resolved. Likely secondary to drug use. Head CT per radiologist showed no acute intracranial abnormality. Case discussed in detail with the patient and patients sister at bedside with patients permission regarding current diagnosis and treatment plan. All questions answered.
[2018-11-26] MEDS: Insulin Detemir 100 units/ml Vial (Levemir) SC SCH (21:20)
[2018-11-27 07:12] LABS: BASO # 0.02 K/mm3 (0.0-2.0); BASO % 0.2 % (0.0-3.0); EOS # 0.2 (0.0-0.7); EOS % 2.3 % (1.5-5.0); HEMOGLOBIN 15.4 g/dL (14.0-18.0); LYMPH # 2.2 (1.2-3.4); MEAN CELL VOLUME 84.8 fl (80.0-105.0); MEAN CORPUSCULAR HEMOGLOBIN 27.8 pg (25.0-35.0); MEAN CORPUSCULAR HGB CONC 32.8 g/dl (31.0-37.0); MEAN PLATELET VOLUME 9.6 fl (7.0-11.0); MONO # 0.3 (0.1-0.6); MONO % 3.5 % (1.0-6.0); RBC 5.53 10^6/uL (3.5-6.1); RED CELL DISTRIBUTION WIDTH 13.3 % (11.5-14.5); WHITE BLOOD COUNT 9.5 10^3/uL (4.5-11.0)
[2018-11-27 07:34] LABS: ALT/SGPT < 6 U/L (7-56); AST/SGOT 16 U/L (17-59); BLOOD UREA NITROGEN 14 mg/dL (7-21); CALCIUM 9.6 mg/dL (8.4-10.5); GFR NON-AFRICAN AMERICAN > 60
[2018-11-27] MEDS: Insulin Lispro (humaLOG) MEDIUM Coverage SC SCH ×4 (08:20→21:29)
[2018-11-27] MEDS: Ceftaroline 600 MG in Sodium Chloride 0.9% 100 ML IVPB SCH (09:37)
--- NOTE | 2018-11-27 15:02 | CP.PCM.PN ---
Subjective - Date & Time of Evaluation Date of Evaluation: 11/27/18 Time of Evaluation: 11:15 - Subjective Subjective: No increased pain in the left arm, no fevers. Objective - Vital Signs/Intake and Output Vital Signs (last 24 hours): Temp Pulse Resp BP Pulse Ox 98 F 66 20 140/89 100 11/26/18 08:00 11/26/18 08:00 11/26/18 08:00 11/26/18 08:00 11/26/18 08:00 - Medications Medications: Current Medications Citalopram Hydrobromide (Celexa) 10 mg PO DAILY [facility] Last Admin: 11/26/18 11:13 Dose: 10 mg Levetiracetam 750 mg/ Sodium (Chloride) 107.5 mls @ 215 mls/hr IVPB Q12 [facility] Last Admin: 11/25/18 23:09 Dose: Not Given Ceftaroline Fosamil 600 mg/ (Sodium Chloride) 100 mls @ 100 mls/hr IVPB Q12 [facility]; Protocol Stop: 12/02/18 10:26 Last Admin: 11/25/18 22:00 Dose: Not Given Insulin Detemir (Levemir) 15 unit SC [facility] Last Admin: 11/25/18 22:01 Dose: 15 units Insulin Human Lispro (Humalog Med) [address] [facility]; Protocol Last Admin: 11/26/18 11:43 Dose: 3 unit Lorazepam (Ativan) 1 mg IVP DAILY PRN; Protocol PRN Reason: Seizure activity Methadone HCl (Methadone) 10 mg PO TID PRN PRN Reason: Opioid withdrawal Last Admin: 11/26/18 14:42 Dose: 10 mg Mupirocin (Bactroban Ointment) 0 gm TOP BID [facility] Last Admin: 11/25/18 18:57 Dose: 1 appl Ondansetron HCl (Zofran Inj) 4 mg IVP Q6H PRN PRN Reason: Nausea/Vomiting Last Admin: 11/23/18 09:36 Dose: 4 mg Quetiapine Fumarate (Seroquel) 50 mg PO HS [facility]; Protocol Last Admin: 11/25/18 22:00 Dose: 50 mg - Labs Labs: 11/26/18 09:30 11/26/18 09:30 PT 11.3 SECONDS (9.4-12.5) 11/20/18 11:45 INR 1.00 11/20/18 11:45 APTT 27.7 Seconds (26.9-38.3) 11/20/18 11:45 - Constitutional Appears: Chronically Ill - Head Exam Head Exam: NORMAL INSPECTION - Respiratory Exam Respiratory Exam: Decreased Breath Sounds - Cardiovascular Exam Cardiovascular Exam: +S1, +S2 - GI/Abdominal Exam GI & Abdominal Exam: Soft. absent: Tenderness - Extremities Exam Additional comments: left arm with dressings in place Assessment and Plan - Assessment and Plan (Free Text) Plan: Assessment Left arm infected wound/ skin and skin structure infection with MRSA, S/P I and D HTN DM untreated Hepatitis C chronic tobacco use polysubstance abuse seizure disorder Plan was on Teflaro and Vancomycin for 5 days but patient has poor venous access - switched to PO doxycycline; ; initial wound cx are showing MRSA will continue to monitor clinically HIV test was negative in 09/2018 will need to see Hepatitis specialist as outpatient for his hepatitis C infection discussed with medical team
--- NOTE | 2018-11-27 15:06 | CP.PCM.PN ---
<Slim Arriola - Last Filed: 11/27/18 16:43> Subjective - Date & Time of Evaluation Date of Evaluation: 11/27/18 Time of Evaluation: 07:00 - Subjective Subjective: Slim Arriola DO, PGY-1 Hospitalist Progress Note for Dr. Irma Fuentes Patient was seen and examined at bedside this AM. He continues to refuse IV medication and was not seen by PT for concerns of his refusal for head CT. Patient states his sister will not be able to pick him up today and would prefer to go home tomorrow. Objective - Vital Signs/Intake and Output Vital Signs (last 24 hours): Temp Pulse Resp BP Pulse Ox 98 F 75 20 123/83 95 11/27/18 08:32 11/27/18 08:32 11/27/18 08:32 11/27/18 09:36 11/27/18 08:32 Intake and Output: 11/27/18 11/27/18 06:59 18:59 Intake Total 420 Balance 420 - Medications Medications: Current Medications Atorvastatin Calcium (Lipitor) 20 mg PO DAILY [facility] Last Admin: 11/27/18 09:34 Dose: 20 mg Carbamazepine (Tegretol) 200 mg PO DAILY [facility]; Protocol Last Admin: 11/27/18 09:33 Dose: 200 mg Citalopram Hydrobromide (Celexa) 10 mg PO DAILY [facility] Last Admin: 11/27/18 09:33 Dose: 10 mg Doxycycline Hyclate (Doryx) 100 mg PO Q12 [facility]; Protocol Last Admin: 11/27/18 12:31 Dose: 100 mg Insulin Detemir (Levemir) 20 unit SC HS [facility] Last Admin: 11/26/18 21:20 Dose: 20 unit Insulin Human Lispro (Humalog Med) 0 units SC ACHS [facility]; Protocol Last Admin: 11/27/18 12:32 Dose: 3 unit Lisinopril (Zestril) 5 mg PO DAILY [facility] Last Admin: 11/27/18 09:34 Dose: 5 mg Lorazepam (Ativan) 1 mg IVP DAILY [facility]; Protocol PRN Reason: Seizure activity Metoprolol Tartrate (Lopressor) 25 mg PO DAILY [facility] Last Admin: 11/27/18 09:36 Dose: 25 mg Mupirocin (Bactroban Ointment) 0 gm TOP BID [facility] Last Admin: 11/26/18 18:41 Dose: 1 appl Ondansetron HCl (Zofran Inj) 4 mg IVP Q6H PRN PRN Reason: Nausea/Vomiting Last Admin: 11/23/18 09:36 Dose: 4 mg Quetiapine Fumarate (Seroquel) 50 mg PO HS [facility]; Protocol Last Admin: 11/26/18 21:13 Dose: 50 mg - Labs Labs: 11/27/18 06:50 11/27/18 06:50 PT 11.3 SECONDS (9.4-12.5) 11/20/18 11:45 INR 1.00 11/20/18 11:45 APTT 27.7 Seconds (26.9-38.3) 11/20/18 11:45 - Constitutional Appears: Non-toxic, No Acute Distress - Head Exam Head Exam: ATRAUMATIC, NORMOCEPHALIC - Eye Exam Eye Exam: EOMI, PERRL - ENT Exam ENT Exam: Mucous Membranes Moist - Neck Exam Neck Exam: Full ROM, Normal Inspection - Respiratory Exam Respiratory Exam: Clear to Ausculation Bilateral, NORMAL BREATHING PATTERN. absent: Rales, Rhonchi, Wheezes - Cardiovascular Exam Cardiovascular Exam: REGULAR RHYTHM, RRR, +S1, +S2. absent: Gallop, Rubs, Murmur - GI/Abdominal Exam GI & Abdominal Exam: Soft, Normal Bowel Sounds. absent: Guarding, Tenderness - Extremities Exam Extremities Exam: Full ROM. absent: Pedal Edema Additional comments: LUE wound with dressing in place and minimal surrounding erythema - Back Exam Back Exam: NORMAL INSPECTION - Neurological Exam Neurological Exam: Alert, Awake, Oriented x3 - Psychiatric Exam Psychiatric exam: Normal Affect, Normal Mood - Skin Skin Exam: Dry, Intact, Warm Assessment and Plan - Assessment and Plan (Free Text) Assessment: 53 yo M with PMH of HTN, DM2, untreated Hep C, unspecified seizure disorder, and polysubstance abuse presented to ED with altered mental status 2/2 seizure vs stroke vs polysubstance abuse. He was subsequently admitted for additional management of altered mental status and LUE wound/cellulitis from IVDA. He has been accepted by psych for additional management but patient may not be able to be transferred due to isolation for MRSA. Now patient states he does not want to go to psych and would rather be discharged home when ready. Plan: LUE Wound 2/[address] LUE completed showed findings consistent with myositis in extensor carpi radialis muscle but no signs of acute osteomyelitis Wound cx positive for MRSA, other cultures negative Continue mupirocin, sulvadine ointment applied to wound Patient to be discharged home on 10 days of doxycycline Patient will be given wound care instructions as recommended by surgery team Plan on discharge tomorrow AM when patient's sister can transport him to her house PT cleared for discharge home with walker Surgery, ID, psychiatry following, all recs appreciated Poorly Controlled DM2 Continue levemir to 20 units nightly Will discharge home on 20 units nightly Continue ISS-medium coverage, fingerstick glucose ACHS Seizure Disorder Continue home tegretol [address] head negative for acute process on admission Continue seizure, aspiration pxns Substance abuse mood disorder Continue celexa, ativan, seroquel Will give prescription for celexa as this was started by psych on admission Psychiatry following, all recs appreciated Opioid dependence Continue methadone DVT PPX: SCD Full Code HHD Monitor on med/surg Patient seen, examined, and plan discussed with my attending Dr. Irma Arriola D.O. IM Resident PGY-1 Pager: [phone] <Caridad Fuentes R - Last Filed: 11/28/18 20:46> Objective - Vital Signs/Intake and Output Vital Signs (last 24 hours): Temp Pulse Resp BP Pulse Ox 97.5 F L 70 18 104/67 100 11/28/18 06:00 11/28/18 06:00 11/28/18 06:00 11/28/18 06:00 11/28/18 06:00 - Labs Labs: 11/27/18 06:50 11/27/18 06:50 PT 11.3 SECONDS (9.4-12.5) 11/20/18 11:45 INR 1.00 11/20/18 11:45 APTT 27.7 Seconds (26.9-38.3) 11/20/18 11:45 Attending/Attestation - Attestation I have personally seen and examined this patient.: Yes I have fully participated in the care of the patient.: Yes I have reviewed all pertinent clinical information, including history, physical exam and plan: Yes Notes (Text): Patient seen and examined by me with resident at approximately 11:10 AM on 11/27/18. Case including HPI, physical exam, and assessment and plan discussed with resident. Agree with above with following additions/corrections. Patient is a 53 year old male with past medical history significant for hypertension, unspecified DM2, untreated hepatitis C, tobacco abuse, polysubstance abuse, and seizure disorder that presented to the emergency room with left upper extremity wound and dizziness. Patient states he is feeling ok today. Denies any pain at left arm wound site. Patient denies chest pain or shortness of breath. No headaches, dizziness, or lightheadedness. No fevers or chills. No nausea, vomiting, or abdominal pain. No diarrhea or constipation. No dysuria or burning with urination. Physical exam: General: Awake and alert sitting up in bed in no acute distress. HEENT: Normocephalic, atraumatic. Extraocular muscles intact, pupils equal and reactive, no scleral icterus. Oropharynx is pink and moist. No pharyngeal erythema or exudate appreciated. Neck is supple. Cardiovascular: Regular rhythm. Normal S1 and S2. No murmurs, rubs, or gallops appreciated Pulmonary: Normal respiratory effort. No rhonchi, rales, or wheezing appreciated. Gastrointestinal: Soft, nondistended. Nontender. Positive bowel sounds all 4 quadrants. No guarding. Musculoskeletal: Moves all extremities. No calf tenderness. No edema. LUE wound dressing clean, dry, and intact. Central nervous system: AAOx3. Dermatologic: Skin warm and dry. Assessment and plan: Patient is a 53 year old male with past medical history significant for hypertension, unspecified DM2, untreated hepatitis C, tobacco abuse, polysubstance abuse, and seizure disorder that presented to the emergency room with left upper extremity wound and dizziness. 1. Fall. Patient eloped and went outside to smoke where patient feel twice 11/26/18. CT head ordered. Patient denies hitting head but then says he is unsure. Physical therapy recommends home with rollator. Continue fall precautions. 2. Left upper extremity wound. Secondary to IVDA. ID following, recommendations appreciated. Unable to get IV line. Placed on doxycycline per ID. Wound culture positive for MRSA. Repeat wound culture negative. Surgical team following, recommendations appreciated. Continue local wound care. Left upper extremity CT per radiologist showed phlegmonous process at the level of the proximal radius less than 1cm, adjacent cutaneous and subcutaneous edema, component of myositis, negative study for acute osteo. 3. DM2, poorly controlled. HgbA1C 13.8. Patient counseled on compliance with medications. Continue Levemir at bedtime. Continue insulin sliding scale. Continue to monitor accuchecks. 4. Hyperlipidemia. Restarted on home Lipitor. 5. Seizure disorder. Continue Keppra. 6. Mood disorder. Psychiatrist following, recommendations appreciated. Patient refusing admission to psychiatric unit. Continue Celexa and seroquel 7. Opioid dependence. Patient counseled at length on cessation. Rehab information provided to patient by case management. 8. Altered mental status. Resolved. Likely secondary to drug use. Head CT per radiologist showed no acute intracranial abnormality. 9. Tobacco abuse. Patient counseled at length on cessation. Patient advised that he can not leave the floor and can not smoke in the hospital. Case discussed in detail with the patient regarding current diagnosis and treatment plan. All questions answered.
[2018-11-27] MEDS: Insulin Detemir 100 units/ml Vial (Levemir) SC SCH (21:31)
[2018-11-28 00:22] VITALS: RESP 18
[2018-11-28] MEDS: Insulin Lispro (humaLOG) MEDIUM Coverage SC SCH ×2 (00:53→09:03)
[2018-11-28 10:25] VITALS: BP 104/67; PULSE 70; TEMP 97.5; O2SAT 100
--- NOTE | 2018-11-28 17:02 | CP.PCM.DIS ---
<Slim Arriola - Last Filed: 11/28/18 16:45> Provider - Provider Date of Admission: 11/20/18 13:29 Attending physician: Caridad Fuentes DO Primary care physician: Rupesh Hargrove APN Consults: 11/20/18 13:38 General Surgery Consult Stat Comment: Consulting Provider: Tyra Fitch Consulting Physician: Tyra Fitch Reason for Consult: h/o abscess 11/20/18 16:03 Nursing Referral for Wound Care Routine Comment: Physician Instructions: Reason For Exam: Left arm wound 11/21/18 10:40 Cleaner And Trimmer [Case Management Referral] Routine Comment: Physician Instructions: Reason For Exam: SW eval for d/c planning Reason for Referral: Discharge Planning 11/21/18 11:07 Physician Consult Routine Comment: Consulting Provider: Brennan Kline Consulting Physician: Brennan Kline Reason for Consult: left upper extremity open wound 11/22/18 10:38 Psychiatry Consult Routine Comment: Consulting Provider: Mayra Awan Consulting Physician: Mayra Awan Reason for Consult: ANXIETY, REFUSAL OF TREATEMENT 11/23/18 09:48 Case Management Referral Routine Comment: Physician Instructions: Reason For Exam: Reason for Referral: Discharge Planning Time Spent in preparation of Discharge (in minutes): 45 Diagnosis - Discharge Diagnosis (1) Wound of upper extremity Status: Acute (2) Hyperglycemia Status: Chronic (3) Opiate abuse, episodic Status: Chronic (4) Substance abuse Status: Chronic Hospital Course - Lab Results Lab Results: Micro Results 11/22/18 22:33 Abscess - Left Gram Stain - Final 11/22/18 22:33 Abscess - Left Wound Culture - Final No growth. 11/20/18 11:30 Blood Blood Culture - Final NO GROWTH AFTER 5 DAYS 11/20/18 11:30 Blood Gram Stain - Final TEST NOT PERFORMED 11/20/18 11:45 Blood Blood Culture - Final NO GROWTH AFTER 5 DAYS 11/20/18 11:45 Blood Gram Stain - Final TEST NOT PERFORMED 11/20/18 11:45 Arm - Left Gram Stain - Final 11/20/18 11:45 Arm - Left Wound Culture - Final Methicillin Resistant S Aureus 11/20/18 12:40 Urine Random Urine Culture - Final No Growth (<1,000 CFU/ML) Most Recent Lab Values WBC 9.5 10^3/uL (4.5-11.0) D 11/27/18 06:50 RBC 5.53 10^6/uL (3.5-6.1) 11/27/18 06:50 Hgb 15.4 g/dL (14.0-18.0) 11/27/18 06:50 Hct 46.9 % (42.0-52.0) 11/27/18 06:50 MCV 84.8 fl (80.0-105.0) 11/27/18 06:50 MCH 27.8 pg (25.0-35.0) 11/27/18 06:50 MCHC 32.8 g/dl (31.0-37.0) 11/27/18 06:50 RDW 13.3 % (11.5-14.5) 11/27/18 06:50 Plt Count 274 10^3/uL (120.0-450.0) 11/27/18 06:50 MPV 9.6 fl (7.0-11.0) 11/27/18 06:50 Neut % (Auto) 71.0 % (50.0-68.0) H 11/27/18 06:50 Lymph % (Auto) 23.0 % (22.0-35.0) 11/27/18 06:50 [place] % (Auto) 3.5 % (1.0-6.0) 11/27/18 06:50 Eos % (Auto) 2.3 % (1.5-5.0) 11/27/18 06:50 Baso % (Auto) 0.2 % (0.0-3.0) 11/27/18 06:50 Lymph # (Auto) 2.2 (1.2-3.4) 11/27/18 06:50 [place] # (Auto) 0.3 (0.1-0.6) 11/27/18 06:50 Eos # (Auto) 0.2 (0.0-0.7) 11/27/18 06:50 Baso # (Auto) 0.02 K/mm3 (0.0-2.0) 11/27/18 06:50 Absolute Neuts (auto) 6.74 (1.4-6.5) H 11/27/18 06:50 ESR 60 mm/hr (0.00-15.0) H 11/20/18 11:45 PT 11.3 SECONDS (9.4-12.5) 11/20/18 11:45 INR 1.00 11/20/18 11:45 APTT 27.7 Seconds (26.9-38.3) 11/20/18 11:45 pO2 45 mm/Hg (30-55) 11/20/18 11:45 VBG pH 7.39 (7.32-7.43) 11/20/18 11:45 VBG pCO2 52.0 (40-60) 11/20/18 11:45 VBG HCO3 31.5 mmol/l (21-28) H 11/20/18 11:45 VBG Total CO2 33.1 mmol.L (22-28) H 11/20/18 11:45 VBG O2 Sat (Calc) 89.9 % (40-65) H 11/20/18 11:45 VBG Base Excess 5.2 mmol/L (0.0-2.0) H 11/20/18 11:45 VBG Potassium 3.6 mmol/L (3.6-5.2) 11/20/18 11:45 Sodium 136.0 mmol/L (132-148) 11/20/18 11:45 Chloride 101.0 mmol/L (98-107) 11/20/18 11:45 Glucose 313 mg/dl (75-110) H 11/20/18 11:45 Lactate 0.8 mmol/L (0.7-2.1) 11/20/18 11:45 FiO2 21.0 % 11/20/18 11:45 Sodium 137 mmol/L (132-148) 11/27/18 06:50 Potassium 4.0 mmol/L (3.6-5.0) 11/27/18 06:50 Chloride 103 mmol/L (98-107) 11/27/18 06:50 Carbon Dioxide 27 mmol/L (21-33) 11/27/18 06:50 Anion Gap 11 (10-20) 11/27/18 06:50 BUN 14 mg/dL (7-21) 11/27/18 06:50 Creatinine 0.8 mg/dl (0.8-1.5) 11/27/18 06:50 Est GFR ( Amer) > 60 11/27/18 06:50 Est GFR (Non-Af Amer) > 60 11/27/18 06:50 POC Glucose (mg/dL) 259 mg/dL (65-110) H 11/28/18 07:42 Random Glucose 168 mg/dL (70-110) H 11/27/18 06:50 Hemoglobin A1c 13.8 % (4.2-6.5) H 11/20/18 11:45 Calcium 9.6 mg/dL (8.4-10.5) 11/27/18 06:50 Phosphorus 3.2 mg/dL (2.5-4.5) 11/20/18 11:45 Magnesium 1.8 mg/dL (1.7-2.2) 11/20/18 11:45 Iron 66 ug/dL (45-180) 11/20/18 11:45 TIBC 284 ug/dL (261-462) 11/20/18 11:45 % Saturation 23 % (20-55) 11/20/18 11:45 Ferritin 137.0 ng/mL 11/20/18 11:45 Total Bilirubin 0.4 mg/dL (0.2-1.3) 11/27/18 06:50 AST 16 U/L (17-59) L 11/27/18 06:50 ALT < 6 U/L (7-56) L 11/27/18 06:50 Alkaline Phosphatase 89 U/L (38-126) 11/27/18 06:50 Troponin I < 0.01 ng/mL 11/20/18 11:45 NT-Pro-B Natriuret Pep 41.7 pg/mL (0-450) 11/20/18 11:45 Total Protein 8.0 g/dL (5.8-8.3) 11/27/18 06:50 Albumin 4.0 g/dL (3.0-4.8) 11/27/18 06:50 Globulin 4.0 gm/dL 11/27/18 06:50 Albumin/Globulin Ratio 1.0 (1.1-1.8) L 11/27/18 06:50 Triglycerides 76 mg/dL (35-160) 11/20/18 11:45 Cholesterol 203 mg/dL (130-200) H 11/20/18 11:45 LDL Cholesterol Direct 121 mg/dL (0-129) 11/20/18 11:45 HDL Cholesterol 63 mg/dL (29-60) H 11/20/18 11:45 Vitamin B12 432 pg/mL (239-931) 11/20/18 11:45 Folate 15.5 ng/mL 11/20/18 11:45 Venous Blood Potassium 3.6 mmol/L (3.6-5.2) 11/20/18 11:45 Urine Color Yellow (YELLOW) 11/20/18 12:40 Urine Appearance Clear (CLEAR) 11/20/18 12:40 Urine pH 6.5 (4.7-8.0) 11/20/18 12:40 Ur Specific [place] 1.010 (1.005-1.035) 11/20/18 12:40 Urine Protein Negative mg/dL (<30 mg/dL) 11/20/18 12:40 Urine Glucose (UA) >=1000 mg/dL (NEGATIVE) 11/20/18 12:40 Urine Ketones Negative mg/dL (NEGATIVE) 11/20/18 12:40 Urine Blood Negative (NEGATIVE) 11/20/18 12:40 Urine Nitrate Negative (NEGATIVE) 11/20/18 12:40 Urine Bilirubin Negative (NEGATIVE) 11/20/18 12:40 Urine Urobilinogen 1.0 E.U./dL (<1 E.U./dL) H 11/20/18 12:40 Ur Leukocyte Esterase Negative Stephanie/uL (NEGATIVE) 11/20/18 12:40 Vancomycin Trough 8.8 ug/mL (5.0-10.0) 11/25/18 08:30 Urine Opiates Screen Positive (NEGATIVE) H 11/20/18 12:40 Urine Methadone Screen Negative (NEGATIVE) 11/20/18 12:40 Ur Barbiturates Screen Negative (NEGATIVE) 11/20/18 12:40 Ur Phencyclidine Scrn Negative (NEGATIVE) 11/20/18 12:40 Ur Amphetamines Screen Negative (NEGATIVE) 11/20/18 12:40 U Benzodiazepines Scrn Negative (NEGATIVE) 11/20/18 12:40 U Oth Cocaine Metabols Positive (NEGATIVE) H 11/20/18 12:40 U Cannabinoids Screen Negative (NEGATIVE) 11/20/18 12:40 Alcohol, Quantitative < 10 mg/dL (0-10) 11/20/18 11:45 HIV 1&2 Ag/Ab, 4th Gen Nonreactive (Nonreactive) 11/22/18 11:30 - Hospital Course Hospital Course: Slim Arriola DO, PGY-1 Hospitalist Discharge Summary for Dr. Dowling Prior to admission: Patient is a 53 year old male with PMH of HTN, DM2, untreated Hep C, unspecified seizure disorder, and polysubstance abuse presented to ED with altered mental status 2/2 seizure vs stroke vs polysubstance abuse. He was subsequently admitted for additional management of altered mental status and LUE wound/cellulitis from IVDA. Hospitalization course: Patient was worked up for AMS with head CT which was negative for acute process. His mental status improved shortly after admission and was likely 2/2 seizure (pt admitted to not taking regular medications) vs IVDA. His LUE wound was treated with I & D by surgery team. His wound culture was positive for MRSA. Other cultures were all negative. He was started on IV v ancomycin and received 4 days total. He was started in keppra BID for seizure ppx. Patient continued to be non-cooperative with examination and eloped to the front entrance where he was found smoking twice throughout hospital stay. Both times he fell and code star was called. Patient stated he did not hit his head but later complained of headache, however patient refused head CT. Patient continued to be hyperglycemic throughout stay and nightly levemir was adjusted accordingly. Patient also continued to refuse all IV medications and he was subsequently restarted on all home PO meds, including tegretol. He was started on doxycycline 100 mg q12h for LUE wound. He was given wound care instructions and supplies. All supplies and home medications were delivered at bedside prior to discharge. Discharge plan was discussed with patient and sister in detail. All questions were answered. Patient seen, examined, and discharge plan discussed with my attending Dr. Nitesh Arriola, D.O. IM Resident PGY-1 Discharge Exam - Head Exam Head Exam: ATRAUMATIC, NORMOCEPHALIC - Eye Exam Eye Exam: EOMI, PERRL - ENT Exam ENT Exam: Mucous Membranes Moist - Neck Exam Neck exam: Full Rom, Normal Inspection - Respiratory Exam Respiratory Exam: Clear to PA & Lateral, NORMAL BREATHING PATTERN, UNREMARKABLE. absent: Rales, Rhonchi, Wheezes - Cardiovascular Exam Cardiovascular Exam: REGULAR RHYTHM, RRR, +S1, +S2. absent: Gallop, Rubs, Systolic Murmur - GI/Abdominal Exam GI & Abdominal Exam: Normal Bowel Sounds, Soft, Unremarkable. absent: Tenderness - Extremities Exam Extremities exam: full ROM, tenderness Additional comments: LUE wound with dressing in place and minimal surrounding erythema - Back Exam Back exam: NORMAL INSPECTION - Neurological Exam Neurological exam: Alert, Oriented x3 - Psychiatric Exam Psychiatric exam: Normal Affect, Normal Mood - Skin Skin Exam: Dry, Intact, Warm Discharge Plan - Discharge Medications Prescriptions: Atorvastatin [Lipitor] 20 mg PO DAILY #30 tab Citalopram [celeXA] 10 mg PO DAILY #14 tab Doxycycline Hyclate [Doryx] 100 mg PO Q12 10 Days #20 cap Gauze Bandage [Gauze Pads] 1 each TP DAILY #30 bandage GlipiZIDE [Glucotrol] 5 mg PO DAILY #30 tab Insulin Detemir [Levemir] 15 units SC HS #1 vial Insulin Lispro [Humalog (Insulin Lispro)] 4 unit SQ AC #1 vial metFORMIN [glucOPHAGE] 500 mg PO BID #60 tab Mupirocin 2% Ointment [Bactroban Ointment] 1 gm TOP BID 30 Days tube Silver Sulfadiazine 1% 20 gm [Silvadene 1% 20 gm] 1 ea TOP DAILY #1 tube - Follow Up Plan Condition: GUARDED Disposition: HOME/ ROUTINE Instructions: Hyperglycemia, Adult, Abscess Incision and Drainage (DC), Alcohol Abuse and Alcoholism (DC), Polysubstance Abuse (DC), How to Use an Insulin Pen, Managing Diabetes During Sick Days (DC), Abscess (GEN), Diabetic Hyperglycemia (DC) Additional Instructions: Please follow up with your primary medical doctor within 3-5 days of discharge. We have given you an antibiotic, doxycycline, for the wound on your left arm. Please take this twice a day for the next 10 days. Please apply the mupirocin and silvadene ointments to your left upper arm wound daily. Then apply dry gauze to the wound after. Stop using all drugs and alcohol or you may get additional wounds. Please go to the wound care clinic here at [facility] 3rd floor at 2pm on December 02. Please register before going to third floor. Script provided. Please continue to participate with your methadone program. Please continue to take your other home medications as previously prescribed. If any of your symptoms return or worsen, please return to nearest emergency department. Referrals: Rupesh Hargrove APN [Primary Care Provider] - <Dipika Dowling - Last Filed: 11/28/18 17:32> Provider - Provider Date of Admission: 11/20/18 13:29 Attending physician: Caridad Fuentes DO Primary care physician: Rupesh Hargrove APN Consults: 11/20/18 13:38 General Surgery Consult Stat Comment: Consulting Provider: Tyra Fitch Consulting Physician: Tyra Fitch Reason for Consult: h/o abscess 11/20/18 16:03 Nursing Referral for Wound Care Routine Comment: Physician Instructions: Reason For Exam: Left arm wound 11/21/18 10:40 Cleaner And Trimmer [Case Management Referral] Routine Comment: Physician Instructions: Reason For Exam: SW eval for d/c planning Reason for Referral: Discharge Planning 11/21/18 11:07 Physician Consult Routine Comment: Consulting Provider: Brennan Kline Consulting Physician: Brennan Kline Reason for Consult: left upper extremity open wound 11/22/18 10:38 Psychiatry Consult Routine Comment: Consulting Provider: Mayra Awan Consulting Physician: Mayra Awan Reason for Consult: ANXIETY, REFUSAL OF TREATEMENT 11/23/18 09:48 Case Management Referral Routine Comment: Physician Instructions: Reason For Exam: Reason for Referral: Discharge Planning Hospital Course - Lab Results Lab Results: Micro Results 11/22/18 22:33 Abscess - Left Gram Stain - Final 11/22/18 22:33 Abscess - Left Wound Culture - Final No growth. 11/20/18 11:30 Blood Blood Culture - Final NO GROWTH AFTER 5 DAYS 11/20/18 11:30 Blood Gram Stain - Final TEST NOT PERFORMED 11/20/18 11:45 Blood Blood Culture - Final NO GROWTH AFTER 5 DAYS 11/20/18 11:45 Blood Gram Stain - Final TEST NOT PERFORMED 11/20/18 11:45 Arm - Left Gram Stain - Final 11/20/18 11:45 Arm - Left Wound Culture - Final Methicillin Resistant S Aureus 11/20/18 12:40 Urine Random Urine Culture - Final No Growth (<1,000 CFU/ML) Most Recent Lab Values WBC 9.5 10^3/uL (4.5-11.0) D 11/27/18 06:50 RBC 5.53 10^6/uL (3.5-6.1) 11/27/18 06:50 Hgb 15.4 g/dL (14.0-18.0) 11/27/18 06:50 Hct 46.9 % (42.0-52.0) 11/27/18 06:50 MCV 84.8 fl (80.0-105.0) 11/27/18 06:50 MCH 27.8 pg (25.0-35.0) 11/27/18 06:50 MCHC 32.8 g/dl (31.0-37.0) 11/27/18 06:50 RDW 13.3 % (11.5-14.5) 11/27/18 06:50 Plt Count 274 10^3/uL (120.0-450.0) 11/27/18 06:50 MPV 9.6 fl (7.0-11.0) 11/27/18 06:50 Neut % (Auto) 71.0 % (50.0-68.0) H 11/27/18 06:50 Lymph % (Auto) 23.0 % (22.0-35.0) 11/27/18 06:50 [place] % (Auto) 3.5 % (1.0-6.0) 11/27/18 06:50 Eos % (Auto) 2.3 % (1.5-5.0) 11/27/18 06:50 Baso % (Auto) 0.2 % (0.0-3.0) 11/27/18 06:50 Lymph # (Auto) 2.2 (1.2-3.4) 11/27/18 06:50 [place] # (Auto) 0.3 (0.1-0.6) 11/27/18 06:50 Eos # (Auto) 0.2 (0.0-0.7) 11/27/18 06:50 Baso # (Auto) 0.02 K/mm3 (0.0-2.0) 11/27/18 06:50 Absolute Neuts (auto) 6.74 (1.4-6.5) H 11/27/18 06:50 ESR 60 mm/hr (0.00-15.0) H 11/20/18 11:45 PT 11.3 SECONDS (9.4-12.5) 11/20/18 11:45 INR 1.00 11/20/18 11:45 APTT 27.7 Seconds (26.9-38.3) 11/20/18 11:45 pO2 45 mm/Hg (30-55) 11/20/18 11:45 VBG pH 7.39 (7.32-7.43) 11/20/18 11:45 VBG pCO2 52.0 (40-60) 11/20/18 11:45 VBG HCO3 31.5 mmol/l (21-28) H 11/20/18 11:45 VBG Total CO2 33.1 mmol.L (22-28) H 11/20/18 11:45 VBG O2 Sat (Calc) 89.9 % (40-65) H 11/20/18 11:45 VBG Base Excess 5.2 mmol/L (0.0-2.0) H 11/20/18 11:45 VBG Potassium 3.6 mmol/L (3.6-5.2) 11/20/18 11:45 Sodium 136.0 mmol/L (132-148) 11/20/18 11:45 Chloride 101.0 mmol/L (98-107) 11/20/18 11:45 Glucose 313 mg/dl (75-110) H 11/20/18 11:45 Lactate 0.8 mmol/L (0.7-2.1) 11/20/18 11:45 FiO2 21.0 % 11/20/18 11:45 Sodium 137 mmol/L (132-148) 11/27/18 06:50 Potassium 4.0 mmol/L (3.6-5.0) 11/27/18 06:50 Chloride 103 mmol/L (98-107) 11/27/18 06:50 Carbon Dioxide 27 mmol/L (21-33) 11/27/18 06:50 Anion Gap 11 (10-20) 11/27/18 06:50 BUN 14 mg/dL (7-21) 11/27/18 06:50 Creatinine 0.8 mg/dl (0.8-1.5) 11/27/18 06:50 Est GFR ( Amer) > 60 11/27/18 06:50 Est GFR (Non-Af Amer) > 60 11/27/18 06:50 POC Glucose (mg/dL) 259 mg/dL (65-110) H 11/28/18 07:42 Random Glucose 168 mg/dL (70-110) H 11/27/18 06:50 Hemoglobin A1c 13.8 % (4.2-6.5) H 11/20/18 11:45 Calcium 9.6 mg/dL (8.4-10.5) 11/27/18 06:50 Phosphorus 3.2 mg/dL (2.5-4.5) 11/20/18 11:45 Magnesium 1.8 mg/dL (1.7-2.2) 11/20/18 11:45 Iron 66 ug/dL (45-180) 11/20/18 11:45 TIBC 284 ug/dL (261-462) 11/20/18 11:45 % Saturation 23 % (20-55) 11/20/18 11:45 Ferritin 137.0 ng/mL 11/20/18 11:45 Total Bilirubin 0.4 mg/dL (0.2-1.3) 11/27/18 06:50 AST 16 U/L (17-59) L 11/27/18 06:50 ALT < 6 U/L (7-56) L 11/27/18 06:50 Alkaline Phosphatase 89 U/L (38-126) 11/27/18 06:50 Troponin I < 0.01 ng/mL 11/20/18 11:45 NT-Pro-B Natriuret Pep 41.7 pg/mL (0-450) 11/20/18 11:45 Total Protein 8.0 g/dL (5.8-8.3) 11/27/18 06:50 Albumin 4.0 g/dL (3.0-4.8) 11/27/18 06:50 Globulin 4.0 gm/dL 11/27/18 06:50 Albumin/Globulin Ratio 1.0 (1.1-1.8) L 11/27/18 06:50 Triglycerides 76 mg/dL (35-160) 11/20/18 11:45 Cholesterol 203 mg/dL (130-200) H 11/20/18 11:45 LDL Cholesterol Direct 121 mg/dL (0-129) 11/20/18 11:45 HDL Cholesterol 63 mg/dL (29-60) H 11/20/18 11:45 Vitamin B12 432 pg/mL (239-931) 11/20/18 11:45 Folate 15.5 ng/mL 11/20/18 11:45 Venous Blood Potassium 3.6 mmol/L (3.6-5.2) 11/20/18 11:45 Urine Color Yellow (YELLOW) 11/20/18 12:40 Urine Appearance Clear (CLEAR) 11/20/18 12:40 Urine pH 6.5 (4.7-8.0) 11/20/18 12:40 Ur Specific [place] 1.010 (1.005-1.035) 11/20/18 12:40 Urine Protein Negative mg/dL (<30 mg/dL) 11/20/18 12:40 Urine Glucose (UA) >=1000 mg/dL (NEGATIVE) 11/20/18 12:40 Urine Ketones Negative mg/dL (NEGATIVE) 11/20/18 12:40 Urine Blood Negative (NEGATIVE) 11/20/18 12:40 Urine Nitrate Negative (NEGATIVE) 11/20/18 12:40 Urine Bilirubin Negative (NEGATIVE) 11/20/18 12:40 Urine Urobilinogen 1.0 E.U./dL (<1 E.U./dL) H 11/20/18 12:40 Ur Leukocyte Esterase Negative Stephanie/uL (NEGATIVE) 11/20/18 12:40 Vancomycin Trough 8.8 ug/mL (5.0-10.0) 11/25/18 08:30 Urine Opiates Screen Positive (NEGATIVE) H 11/20/18 12:40 Urine Methadone Screen Negative (NEGATIVE) 11/20/18 12:40 Ur Barbiturates Screen Negative (NEGATIVE) 11/20/18 12:40 Ur Phencyclidine Scrn Negative (NEGATIVE) 11/20/18 12:40 Ur Amphetamines Screen Negative (NEGATIVE) 11/20/18 12:40 U Benzodiazepines Scrn Negative (NEGATIVE) 11/20/18 12:40 U Oth Cocaine Metabols Positive (NEGATIVE) H 11/20/18 12:40 U Cannabinoids Screen Negative (NEGATIVE) 11/20/18 12:40 Alcohol, Quantitative < 10 mg/dL (0-10) 11/20/18 11:45 HIV 1&2 Ag/Ab, 4th Gen Nonreactive (Nonreactive) 11/22/18 11:30 Attending/Attestation - Attestation I have personally seen and examined this patient.: Yes I have fully participated in the care of the patient.: Yes I have reviewed all pertinent clinical information, including history, physical exam and plan: Yes Notes (Text): 11/28/18 17:29 Attending note; Patient seen and examined with resident. more alert and awake. s/p I and D. Dressing in place. Patient is a 53 year old male with a past medical history significant for HTN, DM, untreated Hepatitis C, Tobacco Use Disorder, Polysubstance Abuse (Heroin and Cocaine), IV drug abuse, history of abscess, noncompliant with follow-up and unspecified Seizure Disorder, presents to the ED via EMS for dizziness for x1 day duration and worsening left upper extremity wound for the past 2 weeks. 1. Dizziness/presyncope; resolved.mostly secondary to drug abuse. Patient is alert and awake. CT head is negative. 2. Diabetes uncontrolled/; secondary to noncompliance with follow-up. Continue IV fluids. Started on insulin. hemoglobin A1c is 13.8. education given. 3. Left upper extremity open wound secondary to active IV drug abuse. Drug abuse cessation is advised. Wound care evaluation appreciated. surgery evaluation appreciated. Outpatient wound care appointment given. s/p I and D yesterday. CT scan of the left arm showed significant subcutaneous edema and myositis. No active osteomyelitis noted. Treated with IV vancomycin. Wound culture showed MRSA. Repeat wound culture is negative so far. On contact isolation. 4. Heroin Abuse; complete cessation is strongly advised. Hepatitis C. needs to follow-up with [facility] hepatology clinic. 5. cocaine abuse; complete cessation is strongly advised. 6. Noncompliance with follow-up. social work msw evaluation for drug rehab appreciated. Patient will be going back to living with his sister upon discharge. Will follow up with psychiatric recommendation. Prognosis is poor secondary to continuous drug abuse and noncompliance with follow-up. Upon discharge the patient will follow up With PMD Dr. Hargrove. discharge home today.
== END 2018-11-28 10:24 | disposition home or self-care (01) | DRG 564 ==
LOC: ED 10:38 → ERH 13:29 → 5RSO 11-21 01:17 → 3RNO 11-22 14:45
PROVIDERS: ADMIT Internal Medicine; ATTEND Hospitalist
PROC: 0HB6XZZ Excision of Back Skin, External Approach (ICD-10-PCS; principal; 2018-11-20)
PROC: 0H9EXZZ Drainage of Left Lower Arm Skin, External Approach (ICD-10-PCS; 2018-11-22)
DX: L02.414 Cutaneous abscess of left upper limb (principal); L89.159 Pressure ulcer of sacral region, unspecified stage; N18.9 Chronic kidney disease, unspecified; B18.2 Chronic viral hepatitis C; E11.22 Type 2 diabetes mellitus with diabetic chronic kidney disease; E11.65 Type 2 diabetes mellitus with hyperglycemia; F11.23 Opioid dependence with withdrawal; F14.20 Cocaine dependence, uncomplicated; F19.14 Other psychoactive substance abuse with psychoactive substance-induced mood disorder; S51.802A Unspecified open wound of left forearm, initial encounter; M60.9 Myositis, unspecified; B95.62 Methicillin resistant Staphylococcus aureus infection as the cause of diseases classified elsewhere; D64.9 Anemia, unspecified; E78.5 Hyperlipidemia, unspecified; F17.210 Nicotine dependence, cigarettes, uncomplicated; F31.9 Bipolar disorder, unspecified; F41.9 Anxiety disorder, unspecified; G40.909 Epilepsy, unspecified, not intractable, without status epilepticus; I12.9 Hypertensive chronic kidney disease with stage 1 through stage 4 chronic kidney disease, or unspecified chronic kidney disease; Z78.9 Other specified health status; Z79.4 Long term (current) use of insulin; Z86.14 Personal history of Methicillin resistant Staphylococcus aureus infection; Z91.14 Patient's other noncompliance with medication regimen; Z91.19 Patient's noncompliance with other medical treatment and regimen; Z91.018 Allergy to other foods; R55 Syncope and collapse; W18.30XA Fall on same level, unspecified, initial encounter; Y92.238 Other place in hospital as the place of occurrence of the external cause